=== PATIENT | female | born 1955 | race Caucasian/White ===

== ENCOUNTER → 2019-05-30 08:32 | Outpatient (CLI) | payer MEDICARE, OTHER, SELFPAY ==
[2019-05-30 09:22] LABS: Hematocrit 37.4 % (36-46); Hemoglobin 11.9 g/dL (12.0-16.0); Mean Corpuscular HGB Conc 31.7 % (30-36); Mean Corpuscular Hemoglobin 26.1 PG (26-34); Mean Corpuscular Volume 82.4 fL (80-100); Platelet Count 439 X10^3/uL (150-400); Red Blood Cell Count 4.54 X10^6/uL (4.0-5.2); Red Cell Distribution Width 15.6 % (11.6-14.8); White Blood Cell Count 4.1 X10^3/uL (4.5-11.0)
[2019-05-30 09:50] LABS: Alanine Aminotransferase 24 IU/L (9-52); Albumin Globulin Ratio 1.3 (1.0-2.8); Alkaline Phosphatase 69 U/L (38-126); Aspartate Aminotransferase 29 IU/L (14-36); BUN Creatinine Ratio 18.6 (6-22); Bilirubin Total 0.3 mg/dL (0.2-1.3); Blood Urea Nitrogen 13 mg/dL (7-17); Calcium 9.5 mg/dL (8.4-10.2); Carbon Dioxide 29 mmol/L (22-32); Chloride 106 mmol/L (98-107); Cholesterol 243 mg/dL (140-199); Estimated Glomerular Filt Rate > 60.0 mL/min (>60); Glucose 99 mg/dL (80-110); HDL Cholesterol 63 mg/dL (40-60); HEMOLYSIS < 15 (0-50); LDL Cholesterol Calculated 160 mg/dL (<100); Potassium 4.1 mmol/L (3.4-5.1); Sodium 142 mmol/L (137-145); Triglycerides 100 mg/dL (35-150)
[2019-05-30 10:29] LABS: TSH w/ Reflex to FT4 2.44 uIU/mL (0.47-4.68)
[2019-05-30 12:19] LABS: Anisocytosis 1+; Hypochromasia 1+; Neutrophils Absolute Manual 1599 /uL (3000-5900); Total Cells Counted 100
== END ==
PROVIDERS: PCP Family Medicine; Visit Provider Nurse Practitioner
DX: E78.00 Pure hypercholesterolemia, unspecified (principal); L29.9 Pruritus, unspecified; R01.1 Cardiac murmur, unspecified
CPT/HCPCS: 36415; 80053; 80061; 84443; 85025

== ENCOUNTER → 2019-07-03 09:46 | Outpatient (CLI) | payer MEDICARE, OTHER, SELFPAY ==
--- NOTE | 2019-07-03 09:49 | DI.RAD.S_ITS ---
PROCEDURE: XR CERVICAL SPINE 2V OR 3V INDICATIONS: Neck pain TECHNIQUE: 3 view(s) of the cervical spine were acquired. COMPARISON: None. FINDINGS: Bones: No fractures or dislocations to the T1 level. The lateral masses of C1 appear intact on the odontoid view. No suspicious bony lesions. Moderate degenerative disc disease is present along the cervical spine, from C3 through C5, and at C5-6 and C6-7 there is moderately severe degenerative disc disease and potential for significant spinal and foraminal stenosis. Soft tissues: No prevertebral soft tissue swelling. IMPRESSION: No trauma found, no subluxation present but there is moderate to moderately severe degenerative disc disease with likelihood of significant spinal and foraminal stenosis from C5 inferiorly. Dictated by: Arsh Mendieta M.D. on 07/03/2019 at 10:09 Approved by: Arsh Mendieta M.D. on 07/03/2019 at 10:10
== END ==
PROVIDERS: PCP Family Medicine; Visit Provider Nurse Practitioner
DX: M50.31 Other cervical disc degeneration, high cervical region (principal); M50.321 Other cervical disc degeneration at C4-C5 level; M50.322 Other cervical disc degeneration at C5-C6 level; M50.323 Other cervical disc degeneration at C6-C7 level
CPT/HCPCS: 72040

== ENCOUNTER 2019-09-25 09:00 | Outpatient (RCR) | payer MEDICARE, OTHER, SELFPAY ==
--- NOTE | 2019-08-13 09:53 | PT.OIE ---
Current Diagnoses Radiculopathy, cervical region (08/07/19) Visit Care Team Role Provider Type JUVENCIO Spears Attending Provider Advanced Third Rigger Primary Care Provider Specialty: Family Practice Address: [address] [place] [address], [facility] Email: [email or web address] Physical Therapy Initial Evaluation PT-OP-A Visit Information Start: 08/07/19 08:58 Freq: Status: Active Protocol: Document 08/07/19 09:00 [facility] (Rec: 08/09/19 14:28 [facility] [email or web address]) Out-Patient Physical Therapy Visit Information Visit Information Visit Type Initial Evaluation Visit Note 64 year old female with chronic history of neck pain and cervical radiculopathy Visit Start Time 09:00 Visit Stop Time 09:45 Total Visit Minutes 45 Visit Number 1 Evaluation Information Evaluation Date 08/07/19 PT-OP-B Current Condition Start: 08/07/19 08:58 Freq: Status: Active Protocol: Document 08/07/19 09:00 [facility] (Rec: 08/09/19 14:28 [facility] [email or web address]) Current Condition History of Current Condition Onset Date chronic hx of neck pain gotten worse recently Current Complaints neck pain rated 4/10 and right sided radiculopathy, ears ringing History of Current Condition 64 year old female with chronic hx of neck pain but recently she has noticed a increase in her symptoms. She reports she can hardly move her head to the right side, she gets numbness into the fingers on her right side and notices a weakness in her right hand. Things like opening a jar she notes she cannot due. She feels weakness into her legs as well and is currently not on a exercise program. Past medical history includes a gastric bypass which she feels really helped her, history of 2 major falls which included slipping and hitting her face on a railing giving her two black eyes. 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 with likelihood of significant spinal and foraminal stenosis from C-5 inferiorly Current Functional Impairments (Reported) Functional Limitations- ADL's c/o her hands going numb when doing dishes, ADL's that require bending increases pain and arm numbness, she finds she can't pull weeds now due to pain and her hands being weak, severe difficulty opening a tight or new jar, sleep is moderately disturbed 2-3 hour sleep loss PT-OP-C Subjective Start: 08/07/19 08:58 Freq: Status: Active Protocol: Document 08/07/19 09:00 [facility] (Rec: 08/09/19 14:28 [facility] [email or web address]) Patient Questionnaires Neck Disability Index Neck Disability Index Impairment 20 to 39% Impaired (Score 10- 19) Quick Dash- Upper Extremity Quick Dash UE Impairment 20 to 39% Impaired (Score 20- 39) OP-PT Pain Assessment Pain Assessment Grid Paper Pain Assessment Grid Completed Yes Location right upper extremity Pain Location Details right upper extremity pain and numbness Description Radiating Frequency Intermittent Variations/Patterns with gripping type activity mid thoracic spine Pain Location Details mid thoracic spine Intensity 4 Scale Used Numeric (1 - 10) posterior neck Pain Location Details posterior neck Intensity 4 Scale Used Numeric (1 - 10) PT-OP-F Manual Assessment Start: 08/07/19 08:58 Freq: Status: Active Protocol: Document 08/07/19 09:00 [facility] (Rec: 08/09/19 14:28 [facility] [email or web address]) Manual Assessments Soft Tissue Assessment Soft Tissue Mobility Assessment tightness in the scalenes B anterior,middle, posterior, tightness in the upper trapezius and levator scapula B Right sided SCM tightness suboccipital tightness and lack of full upper cervical flexion pectoralis tightness bilateral Joint Mobility Assessment Joint Mobility Assessment hypomobility of the lower C spine and upper thoracic spine PT-OP-J Posture/Palpation/Skin Start: 08/07/19 08:58 Freq: Status: Active Protocol: Document 08/07/19 09:00 [facility] (Rec: 08/09/19 14:28 [facility] [email or web address]) Posture Evaluation Position Standing Evaluation View Lateral Head/C-Spine Posture Flexed,Side Bent Right T-Spine Posture Increased Kyphosis Shoulder Posture (L) Rounded,(R) Rounded Scapula Posture (L) Protracted,(R) Protracted Palpation Assessment Location One Palpation Location right upper trapezius, levator scapula, scalenes, clavicle, SCM Palpation Findings Soft Tissue Tightness,Muscle Guarding,Tenderness PT-OP-K Range of Motion Start: 08/07/19 08:58 Freq: Status: Active Protocol: Document 08/07/19 09:00 [facility] (Rec: 08/09/19 14:28 [facility] [email or web address]) Cervical Spine Range of Motion Cervical Spine Active Testing Position Sitting Flexion 10 Extension 0 Rotation Left 10 Rotation Right 5 Lateral Flexion Left 10 Lateral Flexion Right 5 ROM Limitations Soft Tissue Tightness, Contracture,Pain Comments very painfull cervcial ROM, very limited upper cervical flexion, no ability to go into extension Shoulder Goniometric Range of Motion Shoulder Left Shoulder ROM WFL Yes Right Shoulder ROM WFL Yes PT-OP-M Strength Start: 08/07/19 08:58 Freq: Status: Active Protocol: Document 08/07/19 09:00 [facility] (Rec: 08/13/19 09:50 [facility] [email or web address]) Cervical Spine Strength Cervical Spine Manual Muscle Testing Flexion (C1-2) 3 Fair Extension 3 Fair Rotation Left 3 Fair Rotation Right 3 Fair Lateral Flexion Left (C3) 3 Fair Lateral Flexion Right (C3) 3 Fair Shoulder Strength Shoulder Manual Muscle Testing Right Flexion 3+ Fair+ Abduction (C5) 3+ Fair+ Elbow/Forearm Strength Elbow and Forearm Manual Muscle Testing Right Flexion (C6) 4 Good Extension (C7) 4 Good Wrist Strength Wrist Manual Muscle Testing Right Flexion (C7) 3 Fair Extension (C6) 4 Good PT-OP-Q Treatments Start: 08/07/19 08:58 Freq: Status: Active Protocol: Document 08/07/19 09:00 [facility] (Rec: 08/13/19 09:50 [facility] [email or web address]) Therapeutic Exercises Supine Exercises 1 Supine Exercise Name Stretches home program of sidebending ROM, seated scalenes stretch, Comments levator scapula stretch, Other Exercises [address] chest stretch Side bilateral PT-OP-T Assessment and Plan Start: 08/07/19 08:58 Freq: Status: Active Protocol: Document 08/07/19 09:00 [facility] (Rec: 08/13/19 09:50 [facility] [email or web address]) Physical Therapy Assessment Impairments Impairments Activity Tolerance,Functional Activities,Pain,Posture,ROM, Sensation,Soft Tissue Mobility ,Strength Goals Four Impairment Reduced strength of the right Upper extremity C5-6 C 6-7 Participant Administrator Goal (LTG) Improve UE strength of the right that is being caused most likely by foraminal stenosis by improving cervical spine stability, ROM, and UE strengthening. LTG Duration 8 weeks Three Impairment c/o right hand going numb with activities such as washing dishes Shelter Goal (LTG) Reduce complaints of radicular symptoms with activities that cause forward bend such as dishes LTG Duration 8 weeks Two Impairment Restricted cervical spine ROM with pain Participant Administrator Goal (LTG) Improve cervical spine ROM to WFL without increased pain LTG Duration 8 weeks One Impairment Pain rated 4/10 with right sided radicular symptoms Short Term Goal (STG) Reduce pain to mild pain and improved sleeping through the night STG Duration 4-5 weeks Shelter Goal (LTG) Gina reports a overall reduction in pain including increasing reading tolerance and decreaseing headaches LTG Duration 6-8 weeks Assessment Summary Assessment Gina presents to physical therapy today with signs and symtoms of degenerative disc disease in her cervical spine. She has very guarded ROM , pain, and muscle tightness. She experiences radicular symptoms down her right arm and has both decreased sensation as well as decreased strength for the right C5-6 and C 6-7 dermatomes. She also has poor postural habits and body mechanics that contribute to her symptoms. Treatment will focus on establishing a home routine of stretching and ROM as well as postural modifications. Gina is a good candidate for PT Physical Therapy Plan Frequency and Duration Frequency of Treatment 2x/Week Duration of Treatment 8 weeks Plan of Care Start Date 08/07/19 Plan of Care End Date 10/02/19 Therapeutic Interventions Therapeutic Interventions Home Exercise Program,Joint Mobilizations,Manual Therapy, Self-Care/Home Management,Soft Tissue Mobilization, Therapeutic Exercises Modalities Cold Pack/Ice Massage,Electric Stimulation,Ultrasound Next Visit Focus/Plan Next Note Type Treatment Note Next Visit Plan review stretches given to the patient at time of her evaluation, begin working on postural changes and manual therapy treatment to help reduce cervical muscle spasms
--- NOTE | 2019-08-13 09:53 | PT.OPPOC ---
Current Diagnoses Radiculopathy, cervical region (08/07/19) Visit Care Team Role Provider Type JUVENCIO Spears Attending Provider Advanced Business Operations Manager Primary Care Provider Specialty: Family Practice Address: [address] [place] [address], [facility] Email: [email or web address] Plan Of Care PT-OP-T Assessment and Plan Start: 08/07/19 08:58 Freq: Status: Active Protocol: Document 08/07/19 09:00 [facility] (Rec: 08/13/19 09:50 [facility] [email or web address]) Physical Therapy Assessment Impairments Impairments Activity Tolerance,Functional Activities,Pain,Posture,ROM, Sensation,Soft Tissue Mobility ,Strength Goals Four Impairment Reduced strength of the right Upper extremity C5-6 C 6-7 Group Home Goal (LTG) Improve UE strength of the right that is being caused most likely by foraminal stenosis by improving cervical spine stability, ROM, and UE strengthening. LTG Duration 8 weeks Three Impairment c/o right hand going numb with activities such as washing dishes Bankruptcy Manager Goal (LTG) Reduce complaints of radicular symptoms with activities that cause forward bend such as dishes LTG Duration 8 weeks Two Impairment Restricted cervical spine ROM with pain Group Home Goal (LTG) Improve cervical spine ROM to WFL without increased pain LTG Duration 8 weeks One Impairment Pain rated 4/10 with right sided radicular symptoms Short Term Goal (STG) Reduce pain to mild pain and improved sleeping through the night STG Duration 4-5 weeks Group Home Goal (LTG) Gina reports a overall reduction in pain including increasing reading tolerance and decreasing headaches LTG Duration 6-8 weeks Assessment Summary Assessment Gina presents to physical therapy today with signs and symptoms of degenerative disc disease in her cervical spine. She has very guarded ROM , pain, and muscle tightness. She experiences radicular symptoms down her right arm and has both decreased sensation as well as decreased strength for the right C5-6 and C 6-7 dermatomes. She also has poor postural habits and body mechanics that contribute to her symptoms. Treatment will focus on establishing a home routine of stretching and ROM as well as postural modifications. Gina is a good candidate for PT Physical Therapy Plan Frequency and Duration Frequency of Treatment 2x/Week Duration of Treatment 8 weeks Plan of Care Start Date 08/07/19 Plan of Care End Date 10/02/19 Therapeutic Interventions Therapeutic Interventions Home Exercise Program,Joint Mobilizations,Manual Therapy, Self-Care/Home Management,Soft Tissue Mobilization, Therapeutic Exercises Modalities Cold Pack/Ice Massage,Electric Stimulation,Ultrasound Next Visit Focus/Plan Next Note Type Treatment Note Next Visit Plan review stretches given to the patient at time of her evaluation, begin working on postural changes and manual therapy treatment to help reduce cervical muscle spasms Plan of Care Dates Plan of Care Start Date 08/07/19 Plan of Care End Date 10/02/19 Please Sign and Return: I have reviewed this Plan of Care and certify that the skilled therapy services above are required to meet the patient?s needs. Physician Signature Date Printed Name and Credentials Clinical Instructor Signature Printed Name and Credentials
--- NOTE | 2019-08-14 11:35 | PT.OTN ---
Current Diagnoses Radiculopathy, cervical region (08/14/19) Physical Therapy Treatment Note PT-OP-A Visit Information Start: 08/07/19 08:58 Freq: Status: Active Protocol: Document 08/14/19 11:26 [facility] (Rec: 08/14/19 11:35 [facility] [email or web address]) Out-Patient Physical Therapy Visit Information Visit Information Visit Type Treatment Note Visit Start Time 09:00 Visit Stop Time 09:55 Total Visit Minutes 55 Visit Number 2 PT-OP-B Current Condition Start: 08/07/19 08:58 Freq: Status: Active Protocol: Document 08/07/19 09:00 [facility] (Rec: 08/09/19 14:28 [facility] [email or web address]) Current Condition History of Current Condition Onset Date chronic hx of neck pain gotten worse recently Current Complaints neck pain rated 4/10 and right sided radiculopathy, ears ringing History of Current Condition 64 year old female with chronic hx of neck pain but recently she has noticed a increase in her symptoms. She reports she can hardly move her head to the right side, she gets numbness into the fingers on her right side and notices a weakness in her right hand. Things like opening a jar she notes she cannot due. She feels weakness into her legs as well and is currently not on a exercise program. Past medical history includes a gastric bypass which she feels really helped her, history of 2 major falls which included slipping and hitting her face on a railing giving her two black eyes. 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 with likelihood of significant spinal and foraminal stenosis from C-5 inferiorly Current Functional Impairments (Reported) Functional Limitations- ADL's c/o her hands going numb when doing dishes, ADL's that require bending increases pain and arm numbness, she finds she can't pull weeds now due to pain and her hands being weak, severe difficulty opening a tight or new jar, sleep is moderately disturbed 2-3 hour sleep loss PT-OP-C Subjective Start: 08/07/19 08:58 Freq: Status: Active Protocol: Document 08/14/19 11:26 [facility] (Rec: 08/14/19 11:35 [facility] [email or web address]) OP-PT Subjective Patient Comments Patient Comments pt reports she has been busy visiting her grand kids so hasn't been able to do the exercises every day but has been working on trying to do them PT-OP-F Manual Assessment Start: 08/07/19 08:58 Freq: Status: Active Protocol: Document 08/07/19 09:00 [facility] (Rec: 08/09/19 14:28 [facility] [email or web address]) Manual Assessments Soft Tissue Assessment Soft Tissue Mobility Assessment tightness in the scalenes B anterior,middle, posterior, tightness in the upper trapezius and levator scapula B Right sided SCM tightness suboccipital tightness and lack of full upper cervical flexion pectoralis tightness bilateral Joint Mobility Assessment Joint Mobility Assessment hypomobility of the lower C spine and upper thoracic spine PT-OP-J Posture/Palpation/Skin Start: 08/07/19 08:58 Freq: Status: Active Protocol: Document 08/07/19 09:00 [facility] (Rec: 08/09/19 14:28 [facility] [email or web address]) Posture Evaluation Position Standing Evaluation View Lateral Head/C-Spine Posture Flexed,Side Bent Right T-Spine Posture Increased Kyphosis Shoulder Posture (L) Rounded,(R) Rounded Scapula Posture (L) Protracted,(R) Protracted Palpation Assessment Location One Palpation Location right upper trapezius, levator scapula, scalenes, clavicle, SCM Palpation Findings Soft Tissue Tightness,Muscle Guarding,Tenderness PT-OP-K Range of Motion Start: 08/07/19 08:58 Freq: Status: Active Protocol: Document 08/07/19 09:00 [facility] (Rec: 08/09/19 14:28 [facility] [email or web address]) Cervical Spine Range of Motion Cervical Spine Active Testing Position Sitting Flexion 10 Extension 0 Rotation Left 10 Rotation Right 5 Lateral Flexion Left 10 Lateral Flexion Right 5 ROM Limitations Soft Tissue Tightness, Contracture,Pain Comments very painfull cervcial ROM, very limited upper cervical flexion, no ability to go into extension Shoulder Goniometric Range of Motion Shoulder Left Shoulder ROM WFL Yes Right Shoulder ROM WFL Yes PT-OP-M Strength Start: 08/07/19 08:58 Freq: Status: Active Protocol: Document 08/07/19 09:00 [facility] (Rec: 08/13/19 09:50 [facility] [email or web address]) Cervical Spine Strength Cervical Spine Manual Muscle Testing Flexion (C1-2) 3 Fair Extension 3 Fair Rotation Left 3 Fair Rotation Right 3 Fair Lateral Flexion Left (C3) 3 Fair Lateral Flexion Right (C3) 3 Fair Shoulder Strength Shoulder Manual Muscle Testing Right Flexion 3+ Fair+ Abduction (C5) 3+ Fair+ Elbow/Forearm Strength Elbow and Forearm Manual Muscle Testing Right Flexion (C6) 4 Good Extension (C7) 4 Good Wrist Strength Wrist Manual Muscle Testing Right Flexion (C7) 3 Fair Extension (C6) 4 Good PT-OP-Q Treatments Start: 08/07/19 08:58 Freq: Status: Active Protocol: Document 08/14/19 11:26 [facility] (Rec: 08/14/19 11:35 [facility] [email or web address]) Cardio Equipment Recumbent Elliptical (BiodGuardiCore) Duration (Minutes) 5 Resistance 2 Therapeutic Exercises Supine Exercises 2 Supine Exercise Name foam roll stretch 1 Supine Exercise Name Stretches home program of sidebending ROM, seated scalenes stretch, Comments levator scapula stretch, Sitting Exercises 1 Sitting Exercise Name seated shoulder rolls Standing Exercises 2 Standing Exercise Name standing shoulder extension Equipment Used level 1 Reps/Minutes 2 x 10 reps 1 Standing Exercise Name standing rows Resistance level 1 Reps/Minutes 2 x 10 reps Other Exercises 1 [address] Exercise Name door way chest stretch Side bilateral Manual Therapy Treatment Soft Tissue Mobilization 1 Body Location upper trapezius, levator scapula, scalenes Mobilization Type Myofascial Release Body Position Sitting Comments bilateral upper traps and c- spine, pin and stretch with active cervical sidebend Joint Mobilizations 1 Joint gentle PA mobs T1-T2 Body Position seated PT-OP-R Modalities Start: 08/07/19 08:58 Freq: Status: Active Protocol: Document 08/14/19 11:26 [facility] (Rec: 08/14/19 11:35 [facility] [email or web address]) Hot Pack/Cold Pack Treatment Hot Pack Location cervical hot pack PT-OP-T Assessment and Plan Start: 08/07/19 08:58 Freq: Status: Active Protocol: Document 08/14/19 11:26 [facility] (Rec: 08/14/19 11:35 [facility] [email or web address]) Physical Therapy Assessment Assessment Summary Assessment Good tolerance for exercise today, really liked the foam roll. Responded well to manual work in the neck, very guarded and tight R>L upper neck Physical Therapy Plan Frequency and Duration Frequency of Treatment 2x/Week Duration of Treatment 8 weeks Plan of Care Start Date 08/07/19 Plan of Care End Date 10/02/19 Next Visit Focus/Plan Next Note Type Treatment Note Next Visit Plan continue with postural modifications and manual work, cervical stretches and anterior chest stretches. Begin shouler ER strengthening
--- NOTE | 2019-08-21 14:15 | PT.OTN ---
Current Diagnoses Radiculopathy, cervical region (08/21/19) Physical Therapy Treatment Note PT-OP-A Visit Information Start: 08/07/19 08:58 Freq: Status: Active Protocol: Document 08/21/19 14:03 [facility] (Rec: 08/21/19 14:15 [facility] [email or web address]) Out-Patient Physical Therapy Visit Information Visit Information Visit Type Treatment Note Visit Start Time 09:00 Visit Stop Time 09:45 Total Visit Minutes 45 Visit Number 3 PT-OP-B Current Condition Start: 08/07/19 08:58 Freq: Status: Active Protocol: Document 08/07/19 09:00 [facility] (Rec: 08/09/19 14:28 [facility] [email or web address]) Current Condition History of Current Condition Onset Date chronic hx of neck pain gotten worse recently Current Complaints neck pain rated 4/10 and right sided radiculopathy, ears ringing History of Current Condition 64 year old female with chronic hx of neck pain but recently she has noticed a increase in her symptoms. She reports she can hardly move her head to the right side, she gets numbness into the fingers on her right side and notices a weakness in her right hand. Things like opening a jar she notes she cannot due. She feels weakness into her legs as well and is currently not on a exercise program. Past medical history includes a gastric bypass which she feels really helped her, history of 2 major falls which included slipping and hitting her face on a railing giving her two black eyes. 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 with likelihood of significant spinal and foraminal stenosis from C-5 inferiorly Current Functional Impairments (Reported) Functional Limitations- ADL's c/o her hands going numb when doing dishes, ADL's that require bending increases pain and arm numbness, she finds she can't pull weeds now due to pain and her hands being weak, severe difficulty opening a tight or new jar, sleep is moderately disturbed 2-3 hour sleep loss PT-OP-C Subjective Start: 08/07/19 08:58 Freq: Status: Active Protocol: Document 08/21/19 14:03 [facility] (Rec: 08/21/19 14:15 [facility] [email or web address]) OP-PT Subjective Patient Comments Patient Comments pt reports she got a foam roll for home and has been using it. She feels like it really helps. She is not feeling the numbness as much PT-OP-F Manual Assessment Start: 08/07/19 08:58 Freq: Status: Active Protocol: Document 08/07/19 09:00 [facility] (Rec: 08/09/19 14:28 [facility] [place] [email or web address]) Manual Assessments Soft Tissue Assessment Soft Tissue Mobility Assessment tightness in the scalenes B anterior,middle, posterior, tightness in the upper trapezius and levator scapula B Right sided SCM tightness suboccipital tightness and lack of full upper cervical flexion pectoralis tightness bilateral Joint Mobility Assessment Joint Mobility Assessment hypomobility of the lower C spine and upper thoracic spine PT-OP-J Posture/Palpation/Skin Start: 08/07/19 08:58 Freq: Status: Active Protocol: Document 08/07/19 09:00 [facility] (Rec: 08/09/19 14:28 [facility] [email or web address]) Posture Evaluation Position Standing Evaluation View Lateral Head/C-Spine Posture Flexed,Side Bent Right T-Spine Posture Increased Kyphosis Shoulder Posture (L) Rounded,(R) Rounded Scapula Posture (L) Protracted,(R) Protracted Palpation Assessment Location One Palpation Location right upper trapezius, levator scapula, scalenes, clavicle, SCM Palpation Findings Soft Tissue Tightness,Muscle Guarding,Tenderness PT-OP-K Range of Motion Start: 08/07/19 08:58 Freq: Status: Active Protocol: Document 08/07/19 09:00 [facility] (Rec: 08/09/19 14:28 [facility] [place] [email or web address]) Cervical Spine Range of Motion Cervical Spine Active Testing Position Sitting Flexion 10 Extension 0 Rotation Left 10 Rotation Right 5 Lateral Flexion Left 10 Lateral Flexion Right 5 ROM Limitations Soft Tissue Tightness, Contracture,Pain Comments very painfull cervcial ROM, very limited upper cervical flexion, no ability to go into extension Shoulder Goniometric Range of Motion Shoulder Left Shoulder ROM WFL Yes Right Shoulder ROM WFL Yes PT-OP-M Strength Start: 08/07/19 08:58 Freq: Status: Active Protocol: Document 08/07/19 09:00 [facility] (Rec: 08/13/19 09:50 [facility] [place] [email or web address]) Cervical Spine Strength Cervical Spine Manual Muscle Testing Flexion (C1-2) 3 Fair Extension 3 Fair Rotation Left 3 Fair Rotation Right 3 Fair Lateral Flexion Left (C3) 3 Fair Lateral Flexion Right (C3) 3 Fair Shoulder Strength Shoulder Manual Muscle Testing Right Flexion 3+ Fair+ Abduction (C5) 3+ Fair+ Elbow/Forearm Strength Elbow and Forearm Manual Muscle Testing Right Flexion (C6) 4 Good Extension (C7) 4 Good Wrist Strength Wrist Manual Muscle Testing Right Flexion (C7) 3 Fair Extension (C6) 4 Good PT-OP-Q Treatments Start: 08/07/19 08:58 Freq: Status: Active Protocol: Document 08/21/19 14:03 [facility] (Rec: 08/21/19 14:15 [facility] [email or web address]) Therapeutic Exercises Supine Exercises 2 Supine Exercise Name foam roll stretch Comments with horizontal abduction 1 Supine Exercise Name Stretches home program of sidebending ROM, seated scalenes stretch, Comments levator scapula stretch, Sitting Exercises 2 Sitting Exercise Name seated trigeminal nerve flossing 1 Sitting Exercise Name seated shoulder rolls Standing Exercises 3 Standing Exercise Name standing shoulder ER Reps/Minutes level 1 3x 10 reps 2 Standing Exercise Name standing shoulder extension Equipment Used level 1 Reps/Minutes 2 x 10 reps 1 Standing Exercise Name standing rows Resistance level 1 Reps/Minutes 2 x 10 reps Manual Therapy Treatment Soft Tissue Mobilization 1 Body Location upper trapezius, levator scapula, scalenes Mobilization Type Myofascial Release Body Position Sitting Comments bilateral upper traps and c- spine, pin and stretch with active cervical sidebend PT-OP-R Modalities Start: 08/07/19 08:58 Freq: Status: Active Protocol: Document 08/14/19 11:26 [facility] (Rec: 08/14/19 11:35 [facility] [place] [email or web address]) Hot Pack/Cold Pack Treatment Hot Pack Location cervical hot pack PT-OP-T Assessment and Plan Start: 08/07/19 08:58 Freq: Status: Active Protocol: Document 08/21/19 14:03 [facility] (Rec: 08/21/19 14:15 [facility] [place] [email or web address]) Physical Therapy Assessment Assessment Summary Assessment added in rotator cuff strengthening in standing today with good tolerance, tried trigeminal nerve flossing for the left side jaw pain and tennitus. Good improvements with postural corrections causing a reduction in numbness right arm Physical Therapy Plan Frequency and Duration Frequency of Treatment 2x/Week Duration of Treatment 8 weeks Plan of Care Start Date 08/07/19 Plan of Care End Date 10/02/19 Therapeutic Interventions Therapeutic Interventions Home Exercise Program,Joint Mobilizations,Manual Therapy, Self-Care/Home Management,Soft Tissue Mobilization, Therapeutic Exercises Modalities Cold Pack/Ice Massage,Electric Stimulation,Ultrasound Next Visit Focus/Plan Next Note Type Treatment Note Next Visit Plan continue with postural modifications and manual work, cervical stretches and anterior chest stretches.
--- NOTE | 2019-08-23 13:18 | PT.OTN ---
Current Diagnoses Radiculopathy, cervical region (08/23/19) Physical Therapy Treatment Note PT-OP-A Visit Information Start: 08/07/19 08:58 Freq: Status: Active Protocol: Document 08/23/19 13:13 [facility] (Rec: 08/23/19 13:18 [facility] [email or web address]) Out-Patient Physical Therapy Visit Information Visit Information Visit Type Treatment Note Visit Start Time 09:00 Visit Stop Time 09:55 Total Visit Minutes 55 Visit Number 4 PT-OP-B Current Condition Start: 08/07/19 08:58 Freq: Status: Active Protocol: Document 08/07/19 09:00 [facility] (Rec: 08/09/19 14:28 [facility] [email or web address]) Current Condition History of Current Condition Onset Date chronic hx of neck pain gotten worse recently Current Complaints neck pain rated 4/10 and right sided radiculopathy, ears ringing History of Current Condition 64 year old female with chronic hx of neck pain but recently she has noticed a increase in her symptoms. She reports she can hardly move her head to the right side, she gets numbness into the fingers on her right side and notices a weakness in her right hand. Things like opening a jar she notes she cannot due. She feels weakness into her legs as well and is currently not on a exercise program. Past medical history includes a gastric bypass which she feels really helped her, history of 2 major falls which included slipping and hitting her face on a railing giving her two black eyes. 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 with likelihood of significant spinal and foraminal stenosis from C-5 inferiorly Current Functional Impairments (Reported) Functional Limitations- ADL's c/o her hands going numb when doing dishes, ADL's that require bending increases pain and arm numbness, she finds she can't pull weeds now due to pain and her hands being weak, severe difficulty opening a tight or new jar, sleep is moderately disturbed 2-3 hour sleep loss PT-OP-C Subjective Start: 08/07/19 08:58 Freq: Status: Active Protocol: Document 08/23/19 13:13 [facility] (Rec: 08/23/19 13:18 [facility] [email or web address]) OP-PT Subjective Patient Comments Patient Comments pt feels like her ROM is improving. She wants to return to swimming activities PT-OP-F Manual Assessment Start: 08/07/19 08:58 Freq: Status: Active Protocol: Document 08/07/19 09:00 [facility] (Rec: 08/09/19 14:28 [facility] [email or web address]) Manual Assessments Soft Tissue Assessment Soft Tissue Mobility Assessment tightness in the scalenes B anterior,middle, posterior, tightness in the upper trapezius and levator scapula B Right sided SCM tightness suboccipital tightness and lack of full upper cervical flexion pectoralis tightness bilateral Joint Mobility Assessment Joint Mobility Assessment hypomobility of the lower C spine and upper thoracic spine PT-OP-J Posture/Palpation/Skin Start: 08/07/19 08:58 Freq: Status: Active Protocol: Document 08/07/19 09:00 [facility] (Rec: 08/09/19 14:28 [facility] [email or web address]) Posture Evaluation Position Standing Evaluation View Lateral Head/C-Spine Posture Flexed,Side Bent Right T-Spine Posture Increased Kyphosis Shoulder Posture (L) Rounded,(R) Rounded Scapula Posture (L) Protracted,(R) Protracted Palpation Assessment Location One Palpation Location right upper trapezius, levator scapula, scalenes, clavicle, SCM Palpation Findings Soft Tissue Tightness,Muscle Guarding,Tenderness PT-OP-K Range of Motion Start: 08/07/19 08:58 Freq: Status: Active Protocol: Document 08/07/19 09:00 [facility] (Rec: 08/09/19 14:28 [facility] [email or web address]) Cervical Spine Range of Motion Cervical Spine Active Testing Position Sitting Flexion 10 Extension 0 Rotation Left 10 Rotation Right 5 Lateral Flexion Left 10 Lateral Flexion Right 5 ROM Limitations Soft Tissue Tightness, Contracture,Pain Comments very painfull cervcial ROM, very limited upper cervical flexion, no ability to go into extension Shoulder Goniometric Range of Motion Shoulder Left Shoulder ROM WFL Yes Right Shoulder ROM WFL Yes PT-OP-M Strength Start: 08/07/19 08:58 Freq: Status: Active Protocol: Document 08/07/19 09:00 [facility] (Rec: 08/13/19 09:50 [facility] [email or web address]) Cervical Spine Strength Cervical Spine Manual Muscle Testing Flexion (C1-2) 3 Fair Extension 3 Fair Rotation Left 3 Fair Rotation Right 3 Fair Lateral Flexion Left (C3) 3 Fair Lateral Flexion Right (C3) 3 Fair Shoulder Strength Shoulder Manual Muscle Testing Right Flexion 3+ Fair+ Abduction (C5) 3+ Fair+ Elbow/Forearm Strength Elbow and Forearm Manual Muscle Testing Right Flexion (C6) 4 Good Extension (C7) 4 Good Wrist Strength Wrist Manual Muscle Testing Right Flexion (C7) 3 Fair Extension (C6) 4 Good PT-OP-Q Treatments Start: 08/07/19 08:58 Freq: Status: Active Protocol: Document 08/23/19 13:13 [facility] (Rec: 08/23/19 13:18 [facility] [email or web address]) Therapeutic Exercises Standing Exercises 5 Standing Exercise Name mountain pose Comments with inhale raise arms, exhale let them fall 4 Standing Exercise Name standing wall slides Reps/Minutes x 15 3 Standing Exercise Name standing shoulder ER Reps/Minutes level 1 3x 10 reps Manual Therapy Treatment Soft Tissue Mobilization 1 Body Location upper trapezius, levator scapula, scalenes Mobilization Type Myofascial Release Body Position Supine Comments bilateral upper traps and c- spine, pin and stretch with active cervical sidebend Manual Techniques 2 Type medial and ulnar nerve glides 1 Type manual scalene and pec minor stretch PT-OP-R Modalities Start: 08/07/19 08:58 Freq: Status: Active Protocol: Document 08/14/19 11:26 [facility] (Rec: 08/14/19 11:35 [facility] [email or web address]) Hot Pack/Cold Pack Treatment Hot Pack Location cervical hot pack PT-OP-T Assessment and Plan Start: 08/07/19 08:58 Freq: Status: Active Protocol: Document 08/23/19 13:13 [facility] (Rec: 08/23/19 13:18 [facility] [email or web address]) Physical Therapy Assessment Assessment Summary Assessment improving cervical ROM and anterior chest tightness and compression, tolerated nerve glides well Physical Therapy Plan Frequency and Duration Frequency of Treatment 2x/Week Duration of Treatment 8 weeks Plan of Care Start Date 08/07/19 Plan of Care End Date 10/02/19 Therapeutic Interventions Therapeutic Interventions Home Exercise Program,Joint Mobilizations,Manual Therapy, Self-Care/Home Management,Soft Tissue Mobilization, Therapeutic Exercises Modalities Cold Pack/Ice Massage,Electric Stimulation,Ultrasound Next Visit Focus/Plan Next Note Type Treatment Note Next Visit Plan continue with postural modifications and manual work, cervical stretches and anterior chest stretches.
--- NOTE | 2019-09-04 11:09 | PT.OTN ---
Current Diagnoses Radiculopathy, cervical region (09/04/19) Physical Therapy Treatment Note PT-OP-A Visit Information Start: 08/07/19 08:58 Freq: Status: Active Protocol: Document 09/04/19 09:08 [facility] (Rec: 09/04/19 11:08 [facility] [email or web address]) Out-Patient Physical Therapy Visit Information Visit Information Visit Type Treatment Note Visit Start Time 09:05 Visit Stop Time 10:00 Total Visit Minutes 55 Visit Number 4 Number of [employer] Visits 1 PT-OP-B Current Condition Start: 08/07/19 08:58 Freq: Status: Active Protocol: Document 08/07/19 09:00 [facility] (Rec: 08/09/19 14:28 [facility] [email or web address]) Current Condition History of Current Condition Onset Date chronic hx of neck pain gotten worse recently Current Complaints neck pain rated 4/10 and right sided radiculopathy, ears ringing History of Current Condition 64 year old female with chronic hx of neck pain but recently she has noticed a increase in her symptoms. She reports she can hardly move her head to the right side, she gets numbness into the fingers on her right side and notices a weakness in her right hand. Things like opening a jar she notes she cannot due. She feels weakness into her legs as well and is currently not on a exercise program. Past medical history includes a gastric bypass which she feels really helped her, history of 2 major falls which included slipping and hitting her face on a railing giving her two black eyes. 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 with likelihood of significant spinal and foraminal stenosis from C-5 inferiorly Current Functional Impairments (Reported) Functional Limitations- ADL's c/o her hands going numb when doing dishes, ADL's that require bending increases pain and arm numbness, she finds she can't pull weeds now due to pain and her hands being weak, severe difficulty opening a tight or new jar, sleep is moderately disturbed 2-3 hour sleep loss PT-OP-C Subjective Start: 08/07/19 08:58 Freq: Status: Active Protocol: Document 09/04/19 10:15 [facility] (Rec: 09/04/19 11:05 [facility] [email or web address]) OP-PT Subjective Patient Comments Patient Comments Pt reports 6/10 pain when wakes up in the morning but after gets moving in the morning decreases to 3/10 posterior neck pain with continued headaches and numbness into dorsal hand and fingers R>L. Pt stated compliant with HEP instructed thus far and hand outs are helpful for recall. Patient Reported Progress Improving PT-OP-F Manual Assessment Start: 08/07/19 08:58 Freq: Status: Active Protocol: Document 08/07/19 09:00 [facility] (Rec: 08/09/19 14:28 [facility] [email or web address]) Manual Assessments Soft Tissue Assessment Soft Tissue Mobility Assessment tightness in the scalenes B anterior,middle, posterior, tightness in the upper trapezius and levator scapula B Right sided SCM tightness suboccipital tightness and lack of full upper cervical flexion pectoralis tightness bilateral Joint Mobility Assessment Joint Mobility Assessment hypomobility of the lower C spine and upper thoracic spine PT-OP-J Posture/Palpation/Skin Start: 08/07/19 08:58 Freq: Status: Active Protocol: Document 08/07/19 09:00 [facility] (Rec: 08/09/19 14:28 [facility] [email or web address]) Posture Evaluation Position Standing Evaluation View Lateral Head/C-Spine Posture Flexed,Side Bent Right T-Spine Posture Increased Kyphosis Shoulder Posture (L) Rounded,(R) Rounded Scapula Posture (L) Protracted,(R) Protracted Palpation Assessment Location One Palpation Location right upper trapezius, levator scapula, scalenes, clavicle, SCM Palpation Findings Soft Tissue Tightness,Muscle Guarding,Tenderness PT-OP-K Range of Motion Start: 08/07/19 08:58 Freq: Status: Active Protocol: Document 08/07/19 09:00 [facility] (Rec: 08/09/19 14:28 [facility] [email or web address]) Cervical Spine Range of Motion Cervical Spine Active Testing Position Sitting Flexion 10 Extension 0 Rotation Left 10 Rotation Right 5 Lateral Flexion Left 10 Lateral Flexion Right 5 ROM Limitations Soft Tissue Tightness, Contracture,Pain Comments very painfull cervcial ROM, very limited upper cervical flexion, no ability to go into extension Shoulder Goniometric Range of Motion Shoulder Left Shoulder ROM WFL Yes Right Shoulder ROM WFL Yes PT-OP-M Strength Start: 08/07/19 08:58 Freq: Status: Active Protocol: Document 08/07/19 09:00 [facility] (Rec: 08/13/19 09:50 [facility] [email or web address]) Cervical Spine Strength Cervical Spine Manual Muscle Testing Flexion (C1-2) 3 Fair Extension 3 Fair Rotation Left 3 Fair Rotation Right 3 Fair Lateral Flexion Left (C3) 3 Fair Lateral Flexion Right (C3) 3 Fair Shoulder Strength Shoulder Manual Muscle Testing Right Flexion 3+ Fair+ Abduction (C5) 3+ Fair+ Elbow/Forearm Strength Elbow and Forearm Manual Muscle Testing Right Flexion (C6) 4 Good Extension (C7) 4 Good Wrist Strength Wrist Manual Muscle Testing Right Flexion (C7) 3 Fair Extension (C6) 4 Good PT-OP-Q Treatments Start: 08/07/19 08:58 Freq: Status: Active Protocol: Document 09/04/19 10:15 [facility] (Rec: 09/04/19 11:05 [facility] [email or web address]) Therapeutic Exercises Supine Exercises 2 Supine Exercise Name table Resistance light blue TB Reps/Minutes 3x10 Comments with horizontal abduction 1 Supine Exercise Name Stretches home program of sidebending ROM, seated scalenes stretch, Reps/Minutes x10 R and L Comments levator scapula stretch, Sitting Exercises 2 Sitting Exercise Name Median nerve flossing Reps/Minutes 5-10 hold x10 Comments cued decreased TS extension ( HO provided) 1 Sitting Exercise Name Upper trap stretch seated in chair Reps/Minutes 10 hold x10 Comments relaxed neutral shlds, elevated posture, clasp under chair Standing Exercises 4 Reps/Minutes x15 3 Standing Exercise Name standing shoulder ER Reps/Minutes level 1 3x 10 reps Comments head/shlds/pelvis back to wall , neutral CS 2 Standing Exercise Name DNF at wall Equipment Used level 1 Reps/Minutes 3 sec hold x10 Comments facing wall, shld relaxed Manual Therapy Treatment Soft Tissue Mobilization 1 Body Location upper trapezius, levator scapula, scalenes Mobilization Type Myofascial Release Body Position Supine Comments B upper traps, lev scap, suboccipitals, suboccipital release. Instruction self using theracane with active shld or head turns/nods. PT-OP-R Modalities Start: 08/07/19 08:58 Freq: Status: Active Protocol: Document 08/14/19 11:26 [facility] (Rec: 08/14/19 11:35 [facility] [email or web address]) Hot Pack/Cold Pack Treatment Hot Pack Location cervical hot pack PT-OP-T Assessment and Plan Start: 08/07/19 08:58 Freq: Status: Active Protocol: Document 09/04/19 10:15 [facility] (Rec: 09/04/19 11:05 [facility] [email or web address]) Physical Therapy Assessment Assessment Summary Assessment Improving CS ROM and anterior chest and posterior neck tightness, headache went away and pain reduced to 0-1/10 over posterior neck, tolerated added resisted DNF ex and median nerve glides. Provided HO and emailed new exercises today. Access Code: [email or web address] URL: [email or web address] Physical Therapy Plan Frequency and Duration Frequency of Treatment 2x/Week Duration of Treatment 8 weeks Plan of Care Start Date 08/07/19 Plan of Care End Date 10/02/19 Next Visit Focus/Plan Next Note Type Treatment Note Next Visit Plan continue with postural modifications and manual work, cervical stretches and anterior chest stretches.
--- NOTE | 2019-09-12 11:59 | PT.OTN ---
Current Diagnoses Radiculopathy, cervical region (09/12/19) Physical Therapy Treatment Note PT-OP-A Visit Information Start: 08/07/19 08:58 Freq: Status: Active Protocol: Document 09/12/19 10:01 [facility] (Rec: 09/12/19 10:49 [facility] [id number]) Out-Patient Physical Therapy Visit Information Visit Information Visit Type Treatment Note Visit Start Time 10:00 Visit Stop Time 10:45 Total Visit Minutes 45 Visit Number 5 PT-OP-B Current Condition Start: 08/07/19 08:58 Freq: Status: Active Protocol: Document 08/07/19 09:00 [facility] (Rec: 08/09/19 14:28 [facility] [email or web address]) Current Condition History of Current Condition Onset Date chronic hx of neck pain gotten worse recently Current Complaints neck pain rated 4/10 and right sided radiculopathy, ears ringing History of Current Condition 64 year old female with chronic hx of neck pain but recently she has noticed a increase in her symptoms. She reports she can hardly move her head to the right side, she gets numbness into the fingers on her right side and notices a weakness in her right hand. Things like opening a jar she notes she cannot due. She feels weakness into her legs as well and is currently not on a exercise program. Past medical history includes a gastric bypass which she feels really helped her, history of 2 major falls which included slipping and hitting her face on a railing giving her two black eyes. 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 with likelihood of significant spinal and foraminal stenosis from C-5 inferiorly Current Functional Impairments (Reported) Functional Limitations- ADL's c/o her hands going numb when doing dishes, ADL's that require bending increases pain and arm numbness, she finds she can't pull weeds now due to pain and her hands being weak, severe difficulty opening a tight or new jar, sleep is moderately disturbed 2-3 hour sleep loss PT-OP-C Subjective Start: 08/07/19 08:58 Freq: Status: Active Protocol: Document 09/12/19 10:01 [facility] (Rec: 09/12/19 10:49 [facility] [id number]) OP-PT Subjective Patient Comments Patient Comments has been traveling to [place] and has been on a boat so it has been difficult to do her exercises. She has been paying closer attention to her posture and feels that her symptoms are more central now in her neck versus wide spread pain. Patient Reported Progress Improving PT-OP-F Manual Assessment Start: 08/07/19 08:58 Freq: Status: Active Protocol: Document 08/07/19 09:00 [facility] (Rec: 08/09/19 14:28 [facility] [email or web address]) Manual Assessments Soft Tissue Assessment Soft Tissue Mobility Assessment tightness in the scalenes B anterior,middle, posterior, tightness in the upper trapezius and levator scapula B Right sided SCM tightness suboccipital tightness and lack of full upper cervical flexion pectoralis tightness bilateral Joint Mobility Assessment Joint Mobility Assessment hypomobility of the lower C spine and upper thoracic spine PT-OP-J Posture/Palpation/Skin Start: 08/07/19 08:58 Freq: Status: Active Protocol: Document 08/07/19 09:00 [facility] (Rec: 08/09/19 14:28 [facility] [email or web address]) Posture Evaluation Position Standing Evaluation View Lateral Head/C-Spine Posture Flexed,Side Bent Right T-Spine Posture Increased Kyphosis Shoulder Posture (L) Rounded,(R) Rounded Scapula Posture (L) Protracted,(R) Protracted Palpation Assessment Location One Palpation Location right upper trapezius, levator scapula, scalenes, clavicle, SCM Palpation Findings Soft Tissue Tightness,Muscle Guarding,Tenderness PT-OP-K Range of Motion Start: 08/07/19 08:58 Freq: Status: Active Protocol: Document 08/07/19 09:00 [facility] (Rec: 08/09/19 14:28 [facility] [email or web address]) Cervical Spine Range of Motion Cervical Spine Active Testing Position Sitting Flexion 10 Extension 0 Rotation Left 10 Rotation Right 5 Lateral Flexion Left 10 Lateral Flexion Right 5 ROM Limitations Soft Tissue Tightness, Contracture,Pain Comments very painfull cervcial ROM, very limited upper cervical flexion, no ability to go into extension Shoulder Goniometric Range of Motion Shoulder Left Shoulder ROM WFL Yes Right Shoulder ROM WFL Yes PT-OP-M Strength Start: 08/07/19 08:58 Freq: Status: Active Protocol: Document 08/07/19 09:00 [facility] (Rec: 08/13/19 09:50 [facility] [email or web address]) Cervical Spine Strength Cervical Spine Manual Muscle Testing Flexion (C1-2) 3 Fair Extension 3 Fair Rotation Left 3 Fair Rotation Right 3 Fair Lateral Flexion Left (C3) 3 Fair Lateral Flexion Right (C3) 3 Fair Shoulder Strength Shoulder Manual Muscle Testing Right Flexion 3+ Fair+ Abduction (C5) 3+ Fair+ Elbow/Forearm Strength Elbow and Forearm Manual Muscle Testing Right Flexion (C6) 4 Good Extension (C7) 4 Good Wrist Strength Wrist Manual Muscle Testing Right Flexion (C7) 3 Fair Extension (C6) 4 Good PT-OP-Q Treatments Start: 08/07/19 08:58 Freq: Status: Active Protocol: Document 09/12/19 10:01 [facility] (Rec: 09/12/19 10:49 [facility] [id number]) Cardio Equipment Recumbent Elliptical (GuestDriven) Duration (Minutes) 5 Therapeutic Exercises Supine Exercises 2 Supine Exercise Name table Resistance light blue TB Reps/Minutes 3x10 Comments with horizontal abduction 1 Supine Exercise Name Stretches home program of sidebending ROM, seated scalenes stretch, Reps/Minutes x10 R and L Comments levator scapula stretch, Sitting Exercises 2 Sitting Exercise Name Median nerve flossing Reps/Minutes 5-10 hold x10 Comments cued decreased TS extension ( HO provided) 1 Sitting Exercise Name Upper trap stretch seated in chair Reps/Minutes 10 hold x10 Comments relaxed neutral shlds, elevated posture, clasp under chair Standing Exercises 5 Standing Exercise Name mountain pose Comments with inhale raise arms, exhale let them fall 3 Standing Exercise Name standing shoulder ER Reps/Minutes level 1 3x 10 reps Comments head/shlds/pelvis back to wall , neutral CS 1 Standing Exercise Name standing rows Resistance level 1 Reps/Minutes 2 x 10 reps Other Exercises 1 Other Exercise Name door way chest stretch Side bilateral Manual Therapy Treatment Soft Tissue Mobilization 2 Body Location SCM mobilization with movement 1 Body Location upper trapezius, levator scapula, scalenes Mobilization Type Myofascial Release Body Position Supine Comments B upper traps, lev scap, suboccipitals, suboccipital release. Instruction self using theracane with active shld or head turns/nods. Manual Techniques 1 Type manual cervical traction PT-OP-R Modalities Start: 08/07/19 08:58 Freq: Status: Active Protocol: Document 08/14/19 11:26 [facility] (Rec: 08/14/19 11:35 [facility] [email or web address]) Hot Pack/Cold Pack Treatment Hot Pack Location cervical hot pack PT-OP-T Assessment and Plan Start: 08/07/19 08:58 Freq: Status: Active Protocol: Document 09/12/19 11:57 [facility] (Rec: 09/12/19 11:59 [facility] [email or web address]) Physical Therapy Assessment Assessment Summary Assessment Gina is doing better with posture overall. She is much more aware of her posture and how it affects her neck. I did work on her SCM's bilaterally today and these are still very tight and create a forward pull on her neck. She asked today about mechanical traction. I did manual traction with her and she responded well so this would be good to try next visit Physical Therapy Plan Frequency and Duration Frequency of Treatment 2x/Week Duration of Treatment 8 weeks Plan of Care Start Date 08/07/19 Plan of Care End Date 10/02/19 Therapeutic Interventions Therapeutic Interventions Home Exercise Program,Joint Mobilizations,Manual Therapy, Self-Care/Home Management,Soft Tissue Mobilization, Therapeutic Exercises Modalities Cold Pack/Ice Massage,Electric Stimulation,Ultrasound Next Visit Focus/Plan Next Note Type Treatment Note Next Visit Plan trial of mechanical cervical traction next visit
--- NOTE | 2019-09-12 12:01 | PT.OTN ---
Current Diagnoses Radiculopathy, cervical region (09/12/19) Physical Therapy Treatment Note PT-OP-A Visit Information Start: 08/07/19 08:58 Freq: Status: Active Protocol: Document 09/12/19 10:01 [facility] (Rec: 09/12/19 10:49 [facility] [id number]) Out-Patient Physical Therapy Visit Information Visit Information Visit Type Treatment Note Visit Start Time 10:00 Visit Stop Time 10:45 Total Visit Minutes 45 Visit Number 5 PT-OP-B Current Condition Start: 08/07/19 08:58 Freq: Status: Active Protocol: Document 08/07/19 09:00 [facility] (Rec: 08/09/19 14:28 [facility] [email or web address]) Current Condition History of Current Condition Onset Date chronic hx of neck pain gotten worse recently Current Complaints neck pain rated 4/10 and right sided radiculopathy, ears ringing History of Current Condition 64 year old female with chronic hx of neck pain but recently she has noticed a increase in her symptoms. She reports she can hardly move her head to the right side, she gets numbness into the fingers on her right side and notices a weakness in her right hand. Things like opening a jar she notes she cannot due. She feels weakness into her legs as well and is currently not on a exercise program. Past medical history includes a gastric bypass which she feels really helped her, history of 2 major falls which included slipping and hitting her face on a railing giving her two black eyes. 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 with likelihood of significant spinal and foraminal stenosis from C-5 inferiorly Current Functional Impairments (Reported) Functional Limitations- ADL's c/o her hands going numb when doing dishes, ADL's that require bending increases pain and arm numbness, she finds she can't pull weeds now due to pain and her hands being weak, severe difficulty opening a tight or new jar, sleep is moderately disturbed 2-3 hour sleep loss PT-OP-C Subjective Start: 08/07/19 08:58 Freq: Status: Active Protocol: Document 09/12/19 10:01 [facility] (Rec: 09/12/19 10:49 [facility] [id number]) OP-PT Subjective Patient Comments Patient Comments has been traveling to [place] and has been on a boat so it has been difficult to do her exercises. She has been paying closer attention to her posture and feels that her symptoms are more central now in her neck versus wide spread pain. Patient Reported Progress Improving PT-OP-F Manual Assessment Start: 08/07/19 08:58 Freq: Status: Active Protocol: Document 08/07/19 09:00 [facility] (Rec: 08/09/19 14:28 [facility] [email or web address]) Manual Assessments Soft Tissue Assessment Soft Tissue Mobility Assessment tightness in the scalenes B anterior,middle, posterior, tightness in the upper trapezius and levator scapula B Right sided SCM tightness suboccipital tightness and lack of full upper cervical flexion pectoralis tightness bilateral Joint Mobility Assessment Joint Mobility Assessment hypomobility of the lower C spine and upper thoracic spine PT-OP-J Posture/Palpation/Skin Start: 08/07/19 08:58 Freq: Status: Active Protocol: Document 08/07/19 09:00 [facility] (Rec: 08/09/19 14:28 [facility] [email or web address]) Posture Evaluation Position Standing Evaluation View Lateral Head/C-Spine Posture Flexed,Side Bent Right T-Spine Posture Increased Kyphosis Shoulder Posture (L) Rounded,(R) Rounded Scapula Posture (L) Protracted,(R) Protracted Palpation Assessment Location One Palpation Location right upper trapezius, levator scapula, scalenes, clavicle, SCM Palpation Findings Soft Tissue Tightness,Muscle Guarding,Tenderness PT-OP-K Range of Motion Start: 08/07/19 08:58 Freq: Status: Active Protocol: Document 08/07/19 09:00 [facility] (Rec: 08/09/19 14:28 [facility] [email or web address]) Cervical Spine Range of Motion Cervical Spine Active Testing Position Sitting Flexion 10 Extension 0 Rotation Left 10 Rotation Right 5 Lateral Flexion Left 10 Lateral Flexion Right 5 ROM Limitations Soft Tissue Tightness, Contracture,Pain Comments very painfull cervcial ROM, very limited upper cervical flexion, no ability to go into extension Shoulder Goniometric Range of Motion Shoulder Left Shoulder ROM WFL Yes Right Shoulder ROM WFL Yes PT-OP-M Strength Start: 08/07/19 08:58 Freq: Status: Active Protocol: Document 08/07/19 09:00 [facility] (Rec: 08/13/19 09:50 [facility] [email or web address]) Cervical Spine Strength Cervical Spine Manual Muscle Testing Flexion (C1-2) 3 Fair Extension 3 Fair Rotation Left 3 Fair Rotation Right 3 Fair Lateral Flexion Left (C3) 3 Fair Lateral Flexion Right (C3) 3 Fair Shoulder Strength Shoulder Manual Muscle Testing Right Flexion 3+ Fair+ Abduction (C5) 3+ Fair+ Elbow/Forearm Strength Elbow and Forearm Manual Muscle Testing Right Flexion (C6) 4 Good Extension (C7) 4 Good Wrist Strength Wrist Manual Muscle Testing Right Flexion (C7) 3 Fair Extension (C6) 4 Good PT-OP-Q Treatments Start: 08/07/19 08:58 Freq: Status: Active Protocol: Document 09/12/19 10:01 [facility] (Rec: 09/12/19 10:49 [facility] [id number]) Cardio Equipment Recumbent Elliptical (Audiodraft) Duration (Minutes) 5 Therapeutic Exercises Supine Exercises 2 Supine Exercise Name table Resistance light blue TB Reps/Minutes 3x10 Comments with horizontal abduction 1 Supine Exercise Name Stretches home program of sidebending ROM, seated scalenes stretch, Reps/Minutes x10 R and L Comments levator scapula stretch, Sitting Exercises 2 Sitting Exercise Name Median nerve flossing Reps/Minutes 5-10 hold x10 Comments cued decreased TS extension ( HO provided) 1 Sitting Exercise Name Upper trap stretch seated in chair Reps/Minutes 10 hold x10 Comments relaxed neutral shlds, elevated posture, clasp under chair Standing Exercises 5 Standing Exercise Name mountain pose Comments with inhale raise arms, exhale let them fall 3 Standing Exercise Name standing shoulder ER Reps/Minutes level 1 3x 10 reps Comments head/shlds/pelvis back to wall , neutral CS 1 Standing Exercise Name standing rows Resistance level 1 Reps/Minutes 2 x 10 reps Other Exercises 1 Other Exercise Name door way chest stretch Side bilateral Manual Therapy Treatment Soft Tissue Mobilization 2 Body Location SCM mobilization with movement 1 Body Location upper trapezius, levator scapula, scalenes Mobilization Type Myofascial Release Body Position Supine Comments B upper traps, lev scap, suboccipitals, suboccipital release. Instruction self using theracane with active shld or head turns/nods. Manual Techniques 1 Type manual cervical traction PT-OP-R Modalities Start: 08/07/19 08:58 Freq: Status: Active Protocol: Document 08/14/19 11:26 [facility] (Rec: 08/14/19 11:35 [facility] [email or web address]) Hot Pack/Cold Pack Treatment Hot Pack Location cervical hot pack PT-OP-T Assessment and Plan Start: 08/07/19 08:58 Freq: Status: Active Protocol: Document 09/12/19 11:57 [facility] (Rec: 09/12/19 11:59 [facility] [email or web address]) Physical Therapy Assessment Assessment Summary Assessment Gina is doing better with posture overall. She is much more aware of her posture and how it affects her neck. I did work on her SCM's bilaterally today and these are still very tight and create a forward pull on her neck. She asked today about mechanical traction. I did manual traction with her and she responded well so this would be good to try next visit Physical Therapy Plan Frequency and Duration Frequency of Treatment 2x/Week Duration of Treatment 8 weeks Plan of Care Start Date 08/07/19 Plan of Care End Date 10/02/19 Therapeutic Interventions Therapeutic Interventions Home Exercise Program,Joint Mobilizations,Manual Therapy, Self-Care/Home Management,Soft Tissue Mobilization, Therapeutic Exercises Modalities Cold Pack/Ice Massage,Electric Stimulation,Ultrasound Next Visit Focus/Plan Next Note Type Treatment Note Next Visit Plan trial of mechanical cervical traction next visit
--- NOTE | 2019-09-14 10:35 | PT.OTN ---
Current Diagnoses Radiculopathy, cervical region (09/14/19) Physical Therapy Treatment Note PT-OP-A Visit Information Start: 08/07/19 08:58 Freq: Status: Active Protocol: Document 09/14/19 10:35 [facility] (Rec: 09/14/19 14:41 [facility] [email or web address]) Out-Patient Physical Therapy Visit Information Visit Information Visit Type Treatment Note Visit Start Time 09:50 Visit Stop Time 10:35 Total Visit Minutes 45 Visit Number 6 Number of HYDROELECTRIC STATION OPERATOR Visits 2 PT-OP-B Current Condition Start: 08/07/19 08:58 Freq: Status: Active Protocol: Document 08/07/19 09:00 [facility] (Rec: 08/09/19 14:28 [facility] [email or web address]) Current Condition History of Current Condition Onset Date chronic hx of neck pain gotten worse recently Current Complaints neck pain rated 4/10 and right sided radiculopathy, ears ringing History of Current Condition 64 year old female with chronic hx of neck pain but recently she has noticed a increase in her symptoms. She reports she can hardly move her head to the right side, she gets numbness into the fingers on her right side and notices a weakness in her right hand. Things like opening a jar she notes she cannot due. She feels weakness into her legs as well and is currently not on a exercise program. Past medical history includes a gastric bypass which she feels really helped her, history of 2 major falls which included slipping and hitting her face on a railing giving her two black eyes. 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 with likelihood of significant spinal and foraminal stenosis from C-5 inferiorly Current Functional Impairments (Reported) Functional Limitations- ADL's c/o her hands going numb when doing dishes, ADL's that require bending increases pain and arm numbness, she finds she can't pull weeds now due to pain and her hands being weak, severe difficulty opening a tight or new jar, sleep is moderately disturbed 2-3 hour sleep loss PT-OP-C Subjective Start: 08/07/19 08:58 Freq: Status: Active Protocol: Document 09/14/19 10:35 [facility] (Rec: 09/14/19 14:40 [facility] [email or web address]) OP-PT Subjective Patient Comments Patient Comments HYDROELECTRIC STATION OPERATOR brought patient back 10 min late but provided full tx. Pt reported her neck is 5-6/ 10 pain and radiating into R UE tingling/numbness into fingers. I alway feel energized after therapy. Patient Reported Progress Same PT-OP-F Manual Assessment Start: 08/07/19 08:58 Freq: Status: Active Protocol: Document 08/07/19 09:00 [facility] (Rec: 08/09/19 14:28 [facility] [email or web address]) Manual Assessments Soft Tissue Assessment Soft Tissue Mobility Assessment tightness in the scalenes B anterior,middle, posterior, tightness in the upper trapezius and levator scapula B Right sided SCM tightness suboccipital tightness and lack of full upper cervical flexion pectoralis tightness bilateral Joint Mobility Assessment Joint Mobility Assessment hypomobility of the lower C spine and upper thoracic spine PT-OP-J Posture/Palpation/Skin Start: 08/07/19 08:58 Freq: Status: Active Protocol: Document 08/07/19 09:00 [facility] (Rec: 08/09/19 14:28 [facility] [email or web address]) Posture Evaluation Position Standing Evaluation View Lateral Head/C-Spine Posture Flexed,Side Bent Right T-Spine Posture Increased Kyphosis Shoulder Posture (L) Rounded,(R) Rounded Scapula Posture (L) Protracted,(R) Protracted Palpation Assessment Location One Palpation Location right upper trapezius, levator scapula, scalenes, clavicle, SCM Palpation Findings Soft Tissue Tightness,Muscle Guarding,Tenderness PT-OP-K Range of Motion Start: 08/07/19 08:58 Freq: Status: Active Protocol: Document 08/07/19 09:00 [facility] (Rec: 08/09/19 14:28 [facility] [email or web address]) Cervical Spine Range of Motion Cervical Spine Active Testing Position Sitting Flexion 10 Extension 0 Rotation Left 10 Rotation Right 5 Lateral Flexion Left 10 Lateral Flexion Right 5 ROM Limitations Soft Tissue Tightness, Contracture,Pain Comments very painfull cervcial ROM, very limited upper cervical flexion, no ability to go into extension Shoulder Goniometric Range of Motion Shoulder Left Shoulder ROM WFL Yes Right Shoulder ROM WFL Yes PT-OP-M Strength Start: 08/07/19 08:58 Freq: Status: Active Protocol: Document 08/07/19 09:00 [facility] (Rec: 08/13/19 09:50 [facility] [email or web address]) Cervical Spine Strength Cervical Spine Manual Muscle Testing Flexion (C1-2) 3 Fair Extension 3 Fair Rotation Left 3 Fair Rotation Right 3 Fair Lateral Flexion Left (C3) 3 Fair Lateral Flexion Right (C3) 3 Fair Shoulder Strength Shoulder Manual Muscle Testing Right Flexion 3+ Fair+ Abduction (C5) 3+ Fair+ Elbow/Forearm Strength Elbow and Forearm Manual Muscle Testing Right Flexion (C6) 4 Good Extension (C7) 4 Good Wrist Strength Wrist Manual Muscle Testing Right Flexion (C7) 3 Fair Extension (C6) 4 Good PT-OP-Q Treatments Start: 08/07/19 08:58 Freq: Status: Active Protocol: Document 09/14/19 10:35 [facility] (Rec: 09/14/19 14:40 [facility] [email or web address]) Cardio Equipment Recumbent Elliptical (DataSift) Duration (Minutes) 8 Resistance 4 Seat Position 6 Therapeutic Exercises Standing Exercises 4 Standing Exercise Name rows, lat pull down Side bilateral Resistance level 1 band Reps/Minutes 3x10 2 Standing Exercise Name wall clock Side bilateral Resistance level 1 band Reps/Minutes 3x5 PT-OP-R Modalities Start: 08/07/19 08:58 Freq: Status: Active Protocol: Document 09/14/19 10:35 [facility] (Rec: 09/14/19 14:40 [facility] [email or web address]) Spinal Traction Traction Treatment cervical traction Method Static Patient Position Supine Force Applied (Pounds) 15 Duration of Treatment (Minutes) 15 Traction Treatment Comment 20* flexion (lowest setting) portable unit PT-OP-T Assessment and Plan Start: 08/07/19 08:58 Freq: Status: Active Protocol: Document 09/14/19 10:35 [facility] (Rec: 09/14/19 14:40 [facility] [email or web address]) Physical Therapy Assessment Assessment Summary Assessment Pt stated neck pain decreased 3/10 post ther ex and cervical traction 0/10 with increased mobility. Good response to tx. Cued for scap stab during ex. Physical Therapy Plan Frequency and Duration Frequency of Treatment 2x/Week Duration of Treatment 8 weeks Plan of Care Start Date 08/07/19 Plan of Care End Date 10/02/19 Therapeutic Interventions Therapeutic Interventions Home Exercise Program,Joint Mobilizations,Manual Therapy, Self-Care/Home Management,Soft Tissue Mobilization, Therapeutic Exercises Modalities Cold Pack/Ice Massage,Electric Stimulation,Ultrasound Next Visit Focus/Plan Next Note Type Treatment Note Next Visit Plan assess last tx mechanical cervical traction
--- NOTE | 2019-09-18 10:38 | PT.OTN ---
Current Diagnoses Radiculopathy, cervical region (09/18/19) Physical Therapy Treatment Note PT-OP-A Visit Information Start: 08/07/19 08:58 Freq: Status: Active Protocol: Document 09/18/19 10:25 SP (Rec: 09/18/19 10:38 SP [email or web address]) Out-Patient Physical Therapy Visit Information Visit Information Visit Type Treatment Note Visit Start Time 09:44 Visit Stop Time 10:30 Total Visit Minutes 46 Visit Number 7 Number of NURSERY NURSE Visits 3 PT-OP-B Current Condition Start: 08/07/19 08:58 Freq: Status: Active Protocol: Document 08/07/19 09:00 [facility] (Rec: 08/09/19 14:28 [facility] [email or web address]) Current Condition History of Current Condition Onset Date chronic hx of neck pain gotten worse recently Current Complaints neck pain rated 4/10 and right sided radiculopathy, ears ringing History of Current Condition 64 year old female with chronic hx of neck pain but recently she has noticed a increase in her symptoms. She reports she can hardly move her head to the right side, she gets numbness into the fingers on her right side and notices a weakness in her right hand. Things like opening a jar she notes she cannot due. She feels weakness into her legs as well and is currently not on a exercise program. Past medical history includes a gastric bypass which she feels really helped her, history of 2 major falls which included slipping and hitting her face on a railing giving her two black eyes. 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 with likelihood of significant spinal and foraminal stenosis from C-5 inferiorly Current Functional Impairments (Reported) Functional Limitations- ADL's c/o her hands going numb when doing dishes, ADL's that require bending increases pain and arm numbness, she finds she can't pull weeds now due to pain and her hands being weak, severe difficulty opening a tight or new jar, sleep is moderately disturbed 2-3 hour sleep loss PT-OP-C Subjective Start: 08/07/19 08:58 Freq: Status: Active Protocol: Document 09/18/19 10:25 SP (Rec: 09/18/19 10:38 SP [email or web address]) OP-PT Subjective Patient Comments Patient Comments Pt reported 5/10 headache starting PT, no tingling/ numbness in hands/arms today and lessening instances, goes away with the postural ex. Noted forward head, shld upon arrival. Patient Reported Progress Improving PT-OP-F Manual Assessment Start: 08/07/19 08:58 Freq: Status: Active Protocol: Document 08/07/19 09:00 [facility] (Rec: 08/09/19 14:28 REPLACED BY [facility] [email or web address]) Manual Assessments Soft Tissue Assessment Soft Tissue Mobility Assessment tightness in the scalenes B anterior,middle, posterior, tightness in the upper trapezius and levator scapula B Right sided SCM tightness suboccipital tightness and lack of full upper cervical flexion pectoralis tightness bilateral Joint Mobility Assessment Joint Mobility Assessment hypomobility of the lower C spine and upper thoracic spine PT-OP-J Posture/Palpation/Skin Start: 08/07/19 08:58 Freq: Status: Active Protocol: Document 08/07/19 09:00 [facility] (Rec: 08/09/19 14:28 REPLACED BY [facility] [email or web address]) Posture Evaluation Position Standing Evaluation View Lateral Head/C-Spine Posture Flexed,Side Bent Right T-Spine Posture Increased Kyphosis Shoulder Posture (L) Rounded,(R) Rounded Scapula Posture (L) Protracted,(R) Protracted Palpation Assessment Location One Palpation Location right upper trapezius, levator scapula, scalenes, clavicle, SCM Palpation Findings Soft Tissue Tightness,Muscle Guarding,Tenderness PT-OP-K Range of Motion Start: 08/07/19 08:58 Freq: Status: Active Protocol: Document 08/07/19 09:00 [facility] (Rec: 08/09/19 14:28 REPLACED BY [facility] [email or web address]) Cervical Spine Range of Motion Cervical Spine Active Testing Position Sitting Flexion 10 Extension 0 Rotation Left 10 Rotation Right 5 Lateral Flexion Left 10 Lateral Flexion Right 5 ROM Limitations Soft Tissue Tightness, Contracture,Pain Comments very painfull cervcial ROM, very limited upper cervical flexion, no ability to go into extension Shoulder Goniometric Range of Motion Shoulder Left Shoulder ROM WFL Yes Right Shoulder ROM WFL Yes PT-OP-M Strength Start: 08/07/19 08:58 Freq: Status: Active Protocol: Document 08/07/19 09:00 [facility] (Rec: 08/13/19 09:50 [facility] [email or web address]) Cervical Spine Strength Cervical Spine Manual Muscle Testing Flexion (C1-2) 3 Fair Extension 3 Fair Rotation Left 3 Fair Rotation Right 3 Fair Lateral Flexion Left (C3) 3 Fair Lateral Flexion Right (C3) 3 Fair Shoulder Strength Shoulder Manual Muscle Testing Right Flexion 3+ Fair+ Abduction (C5) 3+ Fair+ Elbow/Forearm Strength Elbow and Forearm Manual Muscle Testing Right Flexion (C6) 4 Good Extension (C7) 4 Good Wrist Strength Wrist Manual Muscle Testing Right Flexion (C7) 3 Fair Extension (C6) 4 Good PT-OP-Q Treatments Start: 08/07/19 08:58 Freq: Status: Active Protocol: Document 09/18/19 10:25 SP (Rec: 09/18/19 10:38 SP [email or web address]) Therapeutic Exercises Supine Exercises 4 Supine Exercise Name shld FF, diagonal (Y) Side bilateral Resistance LEvel 2 TB Equipment Used foam roller Reps/Minutes 2x10 Comments reported little tingling Y, went away with FF 3 Supine Exercise Name single arm rows (bow hunters) Side bilateral Resistance level 2 TB Equipment Used foam roller Reps/Minutes 3x10 2 Supine Exercise Name HABD Side bilateral Resistance level 2 TB Equipment Used foam roller Reps/Minutes 3x10 Standing Exercises DNF band Standing Exercise Name DNF Resistance Level 1 band Reps/Minutes 3x10, 5 sec hold PT-OP-R Modalities Start: 08/07/19 08:58 Freq: Status: Active Protocol: Document 09/18/19 10:25 SP (Rec: 09/18/19 10:38 SP [email or web address]) Spinal Traction Traction Treatment cervical traction Method Static Patient Position Supine Force Applied (Pounds) 18 Duration of Treatment (Minutes) 10 Traction Treatment Comment 20* flexion (lowest setting) portable unit PT-OP-T Assessment and Plan Start: 08/07/19 08:58 Freq: Status: Active Protocol: Document 09/18/19 10:25 SP (Rec: 09/18/19 10:38 SP [email or web address]) Physical Therapy Assessment Assessment Summary Assessment Pt had good response to tx. Pt reported decreased stiffening in neck/shoulders post ex and headache went away but end of tx. Noted increased upright posture, neutral neck positioning when leaving. Cued as needed for CS to neutral and arm positioning during ther ex to decrease hand tingling. Physical Therapy Plan Frequency and Duration Frequency of Treatment 2x/Week Duration of Treatment 8 weeks Plan of Care Start Date 08/07/19 Plan of Care End Date 10/02/19 Therapeutic Interventions Therapeutic Interventions Home Exercise Program,Joint Mobilizations,Manual Therapy, Self-Care/Home Management,Soft Tissue Mobilization, Therapeutic Exercises Modalities Cold Pack/Ice Massage,Electric Stimulation,Ultrasound Next Visit Focus/Plan Next Note Type Treatment Note Next Visit Plan TS rotation incorporation with scap stab ther ex.
--- NOTE | 2019-09-25 18:13 | PT.OTN ---
Current Diagnoses Radiculopathy, cervical region (09/25/19) Physical Therapy Treatment Note PT-OP-A Visit Information Start: 08/07/19 08:58 Freq: Status: Active Protocol: Document 09/25/19 18:08 [facility] (Rec: 09/25/19 18:13 [facility] [email or web address]) Out-Patient Physical Therapy Visit Information Visit Information Visit Type Treatment Note Visit Start Time 09:00 Visit Stop Time 09:45 Total Visit Minutes 45 Visit Number 8 Number of PATTERNMAKER METAL Visits 4 PT-OP-B Current Condition Start: 08/07/19 08:58 Freq: Status: Active Protocol: Document 08/07/19 09:00 [facility] (Rec: 08/09/19 14:28 [facility] [email or web address]) Current Condition History of Current Condition Onset Date chronic hx of neck pain gotten worse recently Current Complaints neck pain rated 4/10 and right sided radiculopathy, ears ringing History of Current Condition 64 year old female with chronic hx of neck pain but recently she has noticed a increase in her symptoms. She reports she can hardly move her head to the right side, she gets numbness into the fingers on her right side and notices a weakness in her right hand. Things like opening a jar she notes she cannot due. She feels weakness into her legs as well and is currently not on a exercise program. Past medical history includes a gastric bypass which she feels really helped her, history of 2 major falls which included slipping and hitting her face on a railing giving her two black eyes. 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 with likelihood of significant spinal and foraminal stenosis from C-5 inferiorly Current Functional Impairments (Reported) Functional Limitations- ADL's c/o her hands going numb when doing dishes, ADL's that require bending increases pain and arm numbness, she finds she can't pull weeds now due to pain and her hands being weak, severe difficulty opening a tight or new jar, sleep is moderately disturbed 2-3 hour sleep loss PT-OP-C Subjective Start: 08/07/19 08:58 Freq: Status: Active Protocol: Document 09/25/19 18:08 [facility] (Rec: 09/25/19 18:13 [facility] [email or web address]) OP-PT Subjective Patient Comments Patient Comments pt reports overall she is doing well with her exercises. She notes her posture has improved and she feels she is ready to work on exercises independently after today PT-OP-F Manual Assessment Start: 08/07/19 08:58 Freq: Status: Active Protocol: Document 08/07/19 09:00 [facility] (Rec: 08/09/19 14:28 [facility] [email or web address]) Manual Assessments Soft Tissue Assessment Soft Tissue Mobility Assessment tightness in the scalenes B anterior,middle, posterior, tightness in the upper trapezius and levator scapula B Right sided SCM tightness suboccipital tightness and lack of full upper cervical flexion pectoralis tightness bilateral Joint Mobility Assessment Joint Mobility Assessment hypomobility of the lower C spine and upper thoracic spine PT-OP-J Posture/Palpation/Skin Start: 08/07/19 08:58 Freq: Status: Active Protocol: Document 08/07/19 09:00 [facility] (Rec: 08/09/19 14:28 [facility] [email or web address]) Posture Evaluation Position Standing Evaluation View Lateral Head/C-Spine Posture Flexed,Side Bent Right T-Spine Posture Increased Kyphosis Shoulder Posture (L) Rounded,(R) Rounded Scapula Posture (L) Protracted,(R) Protracted Palpation Assessment Location One Palpation Location right upper trapezius, levator scapula, scalenes, clavicle, SCM Palpation Findings Soft Tissue Tightness,Muscle Guarding,Tenderness PT-OP-K Range of Motion Start: 08/07/19 08:58 Freq: Status: Active Protocol: Document 08/07/19 09:00 [facility] (Rec: 08/09/19 14:28 [facility] [email or web address]) Cervical Spine Range of Motion Cervical Spine Active Testing Position Sitting Flexion 10 Extension 0 Rotation Left 10 Rotation Right 5 Lateral Flexion Left 10 Lateral Flexion Right 5 ROM Limitations Soft Tissue Tightness, Contracture,Pain Comments very painfull cervcial ROM, very limited upper cervical flexion, no ability to go into extension Shoulder Goniometric Range of Motion Shoulder Left Shoulder ROM WFL Yes Right Shoulder ROM WFL Yes PT-OP-M Strength Start: 08/07/19 08:58 Freq: Status: Active Protocol: Document 08/07/19 09:00 [facility] (Rec: 08/13/19 09:50 [facility] [email or web address]) Cervical Spine Strength Cervical Spine Manual Muscle Testing Flexion (C1-2) 3 Fair Extension 3 Fair Rotation Left 3 Fair Rotation Right 3 Fair Lateral Flexion Left (C3) 3 Fair Lateral Flexion Right (C3) 3 Fair Shoulder Strength Shoulder Manual Muscle Testing Right Flexion 3+ Fair+ Abduction (C5) 3+ Fair+ Elbow/Forearm Strength Elbow and Forearm Manual Muscle Testing Right Flexion (C6) 4 Good Extension (C7) 4 Good Wrist Strength Wrist Manual Muscle Testing Right Flexion (C7) 3 Fair Extension (C6) 4 Good PT-OP-Q Treatments Start: 08/07/19 08:58 Freq: Status: Active Protocol: Document 09/25/19 18:08 [facility] (Rec: 09/25/19 18:13 [facility] [email or web address]) Cardio Equipment Recumbent Elliptical (Invoca) Duration (Minutes) 8 Resistance 4 Seat Position 6 Therapeutic Exercises Sitting Exercises 2 Sitting Exercise Name Median nerve flossing Reps/Minutes 5-10 hold x10 Comments cued decreased TS extension ( HO provided) 1 Sitting Exercise Name Upper trap stretch seated in chair Reps/Minutes 10 hold x10 Comments relaxed neutral shlds, elevated posture, clasp under chair Other Exercises [address] chest stretch Side bilateral Manual Therapy Treatment Soft Tissue Mobilization 2 Body Location SCM mobilization with movement 1 Body Location upper trapezius, levator scapula, scalenes Mobilization Type Myofascial Release Body Position Supine Comments B upper traps, lev scap, suboccipitals, suboccipital release. Instruction self using theracane with active shld or head turns/nods. Joint Mobilizations 1 Joint gentle PA mobs T1-T2 Body Position seated PT-OP-R Modalities Start: 08/07/19 08:58 Freq: Status: Active Protocol: Document 09/18/19 10:25 SP (Rec: 09/18/19 10:38 SP [email or web address]) Spinal Traction Traction Treatment cervical traction Method Static Patient Position Supine Force Applied (Pounds) 18 Duration of Treatment (Minutes) 10 Traction Treatment Comment 20* flexion (lowest setting) portable unit PT-OP-T Assessment and Plan Start: 08/07/19 08:58 Freq: Status: Active Protocol: Document 09/25/19 18:08 [facility] (Rec: 09/25/19 18:13 [facility] [email or web address]) Physical Therapy Assessment Goals Four Impairment Reduced strength of the right Upper extremity C5-6 C 6-7 Law Secretary Goal (LTG) Improve UE strength of the right that is being caused most likely by foraminal stenosis by improving cervical spine stability, ROM, and UE strengthening. LTG Duration 8 weeks Three Impairment c/o right hand going numb with activities such as washing dishes Group Home Goal (LTG) Reduce complaints of radicular symptoms with activities that cause forward bend such as dishes GOAL MET LTG Duration 8 weeks Two Impairment Restricted cervical spine ROM with pain Group Home Goal (LTG) Improve cervical spine ROM to WFL without increased pain GOAL MET LTG Duration 8 weeks One Impairment Pain rated 4/10 with right sided radicular symptoms Short Term Goal (STG) Reduce pain to mild pain and improved sleeping through the night GOOD PROGRESS STG Duration 4-5 weeks Group Home Goal (LTG) Gina reports a overall reduction in pain including increasing reading tolerance and decreaseing headaches GOOD PROGRESS LTG Duration 6-8 weeks Progress Towards Goals Progress Towards Goals Progressing Toward Goals Assessment Summary Assessment Gina has responded well to PT and has shown good improvements with increased cervical spine ROM and improved postural habits. She is able to decrease her pain levels with postural corrections. She feels she is independent with her home program and will be discharged at this time Physical Therapy Plan Discharge Physical Therapy Discharge Reasons Patient Request Discharge Comments DC due to pt being independent with HEP
== END 2019-09-26 16:24 | disposition home or self-care (01) ==
LOC: PHYS 09:00
PROVIDERS: PCP Nurse Practitioner; Visit Provider Nurse Practitioner
DX: M54.12 Radiculopathy, cervical region (principal)
CPT/HCPCS: 97012; 97110; 97140; 97161

== ENCOUNTER 2020-09-06 09:15 | Emergency (ER) | payer MEDICARE, OTHER, SELFPAY ==
[2020-09-06 09:27] VITALS: BP 173/81; PULSE 66; RESP 12; TEMP 36.6; O2SAT 99; BMI 60.1
--- NOTE | 2020-09-06 09:28 | ED_ITS ---
HPI - Skin/Abscess/Foreign Bdy General Chief complaint: Skin/Abscess/Foreign Body Stated complaint: Cold sore outbreak Time Seen by Provider: 09/06/20 09:20 Source: patient Mode of arrival: Ambulatory Limitations: no limitations History of Present Illness HPI narrative: 65-year-old female nonsmoker with history of cold sores and chronic allergy type symptoms presents with interruption of cold sores on her lower lip. She has had herpes simplex 1 in the past and tends to do well on acyclovir She denies any intraoral complications and no trouble swallowing. She has had no fever or chills. She has had no runny nose, sneezing but has had the occasional cough and her chronically itchy skin. On occasion she takes hydroxyzine which seems to help the itchiness of her skin She has had no chest pain or dizziness. She denies any exposure to persons known or under suspicion for coronavirus and is otherwise well and free of complaint MD complaint: lesion Onset (ago): hour(s) Tetanus up to date: yes Location: face (Lower lip) Severity: mild Quality: burning Pain Consistency: constant Relieving factors: none Exacerbating factors: none Context: none Associated symptoms: cough Treatments prior to arrival: none Related Data Previous Rx's Medication Instructions Recorded estradiol 1 gram VAG DAILY #42.5 gram 05/28/19 hydroxyzine HCl 10 mg tablet 10 mg PO TID PRN #90 tab 05/28/19 estradiol 10 mcg vaginal tablet See Rx Instructions VAG .COMPLEX 08/28/19 14 Days #20 tab acyclovir 400 mg PO 5XD 10 Days #50 tab 09/06/20 Allergies Allergy/AdvReac Type Severity Reaction Status Date / Time Sulfa (Sulfonamide Allergy Unknown Unverified 09/19/19 11:33 Antibiotics) [SULFA (SULFONAMIDE ANTIBIOTICS)] Review of Systems Constitutional Constitutional: Denies chills, Denies fatigue, Denies fever(s), Denies frequent falls, Denies lethargy and Denies weakness Eyes Eyes: Denies change in vision, Denies eye discharge, Denies irritation and Denies loss of vision ENT Ears, Nose, Mouth, and Throat: Denies change in voice, Denies dizziness, Denies neck pain, Denies sore throat and Denies throat swelling Cardiovascular Cardiovascular: Denies chest pain, Denies irregular heart rhythm, Denies lightheadedness, Denies palpitations, Denies dyspnea, Denies dyspnea on exertion and Denies orthopnea Respiratory Respiratory: Reports cough, Denies dyspnea, Denies dyspnea on exertion and Denies wheezing Gastrointestinal Gastrointestinal: Denies abdominal pain, Denies change in bowel habits, Denies diarrhea, Denies nausea and Denies vomiting Musculoskeletal Musculoskeletal: Denies neck pain and Denies numbness Integumentary/Breasts Skin/Breast: Denies pruritus, Reports lesions, Denies erythema, Denies rash, Reports skin pain, Reports sores and Denies wounds Neurologic Neurologic: Denies behavioral changes, Denies confusion, Denies dizziness, Denies frequent falls, Denies loss of vision, Denies numbness and Denies weakness Psychiatric Psychiatric: Denies anxiety, Denies behavioral changes, Denies confusion, Denies depression, Denies homicidal ideation and Denies suicidal ideation Endocrine Endocrine: Denies fatigue, Denies flushing and Denies palpitations Hematologic/Lymphatic Hematologic/Lymphatic: Denies easy bruising Allergic/Immunologic Allergic/Immunologic: Denies urticaria, Denies throat swelling and Denies wheezing Patient History Social History Smoking Status: Never smoker Smoking Status: Never smoker Exam Narrative Exam Narrative: GEN: AOx3 and in mild distress EYES: Pupils are equal, round, and reactive to light and accommodation. Extraoccular muscles are intact bilaterally. There is no subconjunctival he morrhage or exudate. ENT: scaly, erythematous lesions on lower lip, no blisters. No intraoral involvement. CHEST: Lungs are clear to auscultation bilaterally and free of wheezes, rales, or rhonchi. Heart rate is regular rhythm, there are no murmurs, clicks, rubs, or gallops. There is no chest wall tenderness. ABD: Abdomen is soft and nontender. There is no guarding or rebound. Bowel sounds are normal in all 4 quadrants. There is no mass or organomegaly. EXT: Full painless ROM of all extremities with no loss of sensation or strength. SKIN: Warm, pink, and dry. No erythema or rash Initial Vital Signs Initial Vital Signs: Vital Signs Temperature 97.9 F 09/06/20 09:27 Pulse Rate 66 09/06/20 09:27 Respiratory Rate 12 09/06/20 09:27 Blood Pressure 173/81 H 09/06/20 09:27 Pulse Oximetry 99 09/06/20 09:27 Course Orders Ordered: ED Orders 09/06/20 09:41 XR chest 2V Stat Vital Signs Vital signs: Vital Signs - 8 hr 09/06/20 09:27 09/06/20 10:36 Temperature 97.9 F Pulse Rate 66 63 Respiratory Rate 12 12 Blood Pressure 173/81 H 148/84 H Pulse Oximetry 99 97 MDM - Skin/Abscess/Foreign Bdy Imaging Data Chest x-ray: Radiologist's Impression: [address] [address] XRay Report Signed Patient: Gina Kenney HMR#: [id number] : [id number]:[id number] Age/Sex: 65 / FDate of Service: 09/06/20 Loc: ED Accession Number: [id number] Procedure: XR chest 2V Ordering Provider: Cameron Henson D.O. PROCEDURE: XR CHEST 2V INDICATIONS: cough, phlegm production TECHNIQUE: 2 views of the chest were acquired. COMPARISON: None. FINDINGS: Surgical changes and devices: None. Lungs and pleura: Lungs are clear. No pleural effusions or pneumothorax. Mediastinum: Mediastinal contours are normal. Heart size is normal. Bones and chest wall: No suspicious bony abnormalities. Soft tissues appear unremarkable. IMPRESSION: 1. No acute cardiopulmonary disease. Dictated by: Nitesh Perez M.D. on 09/06/2020 at 9:15 Approved by: Nitesh Perez M.D. on 09/06/2020 at 9:16 Discharge Plan Departure Patient Disposition: Home Clinical Impression: HSV (herpes simplex virus) infection Discharge Date/Time: 09/06/20 10:38 Instructions: DI for Cold Sores Activity Restrictions/Additional Instructions: *You have been diagnosed with [cold sore exacerbation, along with productive cough and occasionally itchy skin] *What to do: *Take medications as directed: In addition to the prescription for acyclovir (sent to [facility]) please consider taking a daily antihistamine such as Evelia, Zyrtec, Claritin as your cough is likely due to a mild histamine reaction. *Follow up with your primary care provider in 2-3 days, call for an appointment. Let them know you were seen in the Emergency Department and that we ask that you be seen in follow up *Return to ER if you should have any new, worsening or concerning symptoms Radiographic study has been interpreted by an emergency physician. The official diagnosis by radiology will be performed within the next 24 hours and should there be any change in outcome we will notify you of how to proceed. Prescriptions: New acyclovir 400 mg tablet 400 mg PO 5XD 10 Days Qty: 50 RF: 0 No Action estradiol 10 mcg tablet See Rx Instructions VAG .COMPLEX 14 Days Qty: 20 RF: 11 estradiol 0.01 % (0.1 mg/gram) cream 1 gram VAG DAILY Qty: 42.5 RF: 11 hydroxyzine HCl 10 mg tablet 10 mg PO TID PRN (Reason: itching) Qty: 90 RF: 3 Referrals: Mila Chou ARNP [Primary Care Provider] -
--- NOTE | 2020-09-06 09:41 | DI.RAD.S_ITS ---
PROCEDURE: XR CHEST 2V INDICATIONS: cough, phlegm production TECHNIQUE: 2 views of the chest were acquired. COMPARISON: None. FINDINGS: Surgical changes and devices: None. Lungs and pleura: Lungs are clear. No pleural effusions or pneumothorax. Mediastinum: Mediastinal contours are normal. Heart size is normal. Bones and chest wall: No suspicious bony abnormalities. Soft tissues appear unremarkable. IMPRESSION: 1. No acute cardiopulmonary disease. Dictated by: Nitesh Perez M.D. on 09/06/2020 at 9:15 Approved by: Nitesh Perez M.D. on 09/06/2020 at 9:16
[2020-09-06 10:36] VITALS: BP 148/84; PULSE 63; RESP 12; O2SAT 97
== END 2020-09-06 10:38 | disposition home or self-care (01) ==
PROVIDERS: Emergency Provider Emergency Medicine; PCP Nurse Practitioner
DX: B00.1 Herpesviral vesicular dermatitis (principal); R05 Cough
CPT/HCPCS: 71046; 99281; 99283

== ENCOUNTER 2020-09-13 17:36 | Emergency (ER) | payer MEDICARE, OTHER, SELFPAY ==
[2020-09-13 17:47] VITALS: BP 134/60; PULSE 78; RESP 20; TEMP 36.4; O2SAT 98; BMI 28.1
--- NOTE | 2020-09-13 18:16 | ED_ITS ---
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 Previously in the day she does note that she had some mild right forearm muscle spasm that resolved fairly quickly. She has never had spasms this significant in the pain was in the that she felt an emergency room evaluation was appropriate. By the time she seen in the emergency room the majority of the spasm has past but she still is tender in her left lower extremity. She describes no headache, no focal neurologic symptoms, no cognitive deficits, no chest pain, palpitations, dyspnea, abdominal pain, vomiting or diarrhea, lower extremity edema and no recent fevers. Medications include hydroxyzine for pruritus presumably secondary to seasonal allergies. She notes of chronic cough in the mornings again presumably secondary to allergies and improved with Evelia that she has been taking this week. She recently had a right lower lip cold sore that was treated with acyclovir and has almost completely resolved at this point Related Data Previous Rx's Medication Instructions Recorded estradiol 1 gram VAG DAILY #42.5 gram 05/28/19 estradiol 10 mcg vaginal tablet See Rx Instructions VAG .COMPLEX 08/28/19 14 Days #20 tab acyclovir 400 mg PO 5XD 10 Days #50 tab 09/06/20 hydroxyzine HCl 10 mg tablet 10 mg PO TID PRN #90 tab 09/08/20 potassium chloride 20 meq PO DAILY #4 tab 09/13/20 Allergies Allergy/AdvReac Type Severity Reaction Status Date / Time Sulfa (Sulfonamide Allergy Unknown Verified 09/13/20 17:47 Antibiotics) [SULFA (SULFONAMIDE ANTIBIOTICS)] Review of Systems Review of Systems Narrative: Remainder of review of systems including constitutional, ENT, cardiovascular, respiratory, GI, , musculoskeletal, skin, neurologic and psychiatric systems reviewed and are unremarkable except as noted in HPI. Patient History Medical History HSV (herpes simplex virus) infection (Inactive) Social History Smoking Status: Never smoker Smoking Status: Never smoker alcohol intake frequency: 0-2 drinks per day Alcohol type: hard liquor Substance Use Type: does not use Exam Narrative Exam Narrative: General: Healthy appearing, in no acute distress. Able to give a complete and coherent history. Well-nourished well-developed HEENT: Moist mucous membranes, normal sclera with reactive pupils, Neck: supple Respiratory: Lungs are clear to auscultation, no wheezing no rales no rhonchi. Full and symmetrical air movement Cardiac: Regular rate and rhythm no murmurs no bruits Abdomen: Soft nontender good bowel tones, no flank pain Skin: Warm and dry, no rashes Neurologic: Grossly neurologically intact with no obvious asymmetries. She is hyper-reflexic with 4+ reflexes at the patellas and 1 beat of clonus bilaterally Extremities: No trauma, well perfused Psych: Cooperative, appropriate insight and affect Initial Vital Signs Initial Vital Signs: Vital Signs Temperature 97.6 F 09/13/20 17:47 Pulse Rate 78 09/13/20 17:47 Respiratory Rate 20 09/13/20 17:47 Blood Pressure 134/60 09/13/20 17:47 Pulse Oximetry 98 09/13/20 17:47 Course Orders Ordered: ED Orders 09/13/20 17:50 CMP [Comprehensive Metabolic Panel] Stat Complete Blood Count AUTO DIFF Stat Magnesium Stat Discontinued Medications Sodium Chloride (Normal Saline 0.9%) 1,000 mls @ 1,000 mls/hr IV BOLUS ONE Stop: 09/13/20 19:26 Last Infusion: 09/13/20 19:50 Dose: 0 mls/hr Documented by: Admin: 09/13/20 18:49 Dose: 1,000 mls/hr Documented by: NEMO Potassium Chloride (Klor-Con M20) 40 meq PO NOW ONE Stop: 09/13/20 20:53 Last Admin: 09/13/20 21:01 Dose: 40 meq Documented by: [email or web address] Vital Signs Vital signs: Vital Signs - 8 hr 09/13/20 17:47 Temperature 97.6 F Pulse Rate 78 Respiratory Rate 20 Blood Pressure 134/60 Pulse Oximetry 98 MDM - Extremity (Nontraumatic) Lab Data Result diagrams: 09/13/20 17:50 09/13/20 17:50 Labs: Lab Results 09/13/20 09/13/20 09/13/20 Range/Units 17:50 17:50 17:50 WBC 5.8 (4.5-11.0) X10^3/uL RBC 4.29 (4.0-5.2) X10^6/uL Hgb 10.1 L (12.0-16.0) g/dL Hct 32.2 L (36-46) % MCV 75.0 L (80-100) fL MCH 23.6 L (26-34) PG MCHC 31.5 (30-36) % RDW 17.8 H (11.6-14.8) % Plt Count 432 H (150-400) X10^3/uL Neut % (Auto) 51.7 (50-75) % Lymph % (Auto) 33.5 (25-40) % Cabell % (Auto) 8.7 (3-14) % Eos % (Auto) 5.0 H (2-4) % Baso % (Auto) 1.1 (0-2) % Neut # (Auto) 3000 (9423-0326) /uL Lymph # (Auto) 1900 (1213-2322) /uL Cabell # (Auto) 500 (0-900) /uL Eos # (Auto) 300 (0-450) /uL Baso # (Auto) 100 (0-100) /uL Sodium 139 (137-145) mmol/L Potassium 3.3 L (3.4-5.1) mmol/L Chloride 109 H (98-107) mmol/L Carbon Dioxide 19 L (22-32) mmol/L BUN 15 (7-17) mg/dL Creatinine 0.68 (0.52-1.04) mg/dL Estimated GFR > 60.0 (>60) mL/min BUN/Creatinine Ratio 22.1 H (6-22) Glucose 120 H (80-110) mg/dL Calcium 9.1 (8.4-10.2) mg/dL Magnesium 2.3 (1.6-2.3) mg/dL Total Bilirubin 0.2 (0.2-1.3) mg/dL AST 27 (14-36) IU/L ALT 19 (<35) IU/L Alkaline Phosphatase 80 (38-126) U/L Total Protein 6.8 (6.3-8.2) g/dL Albumin 4.0 (3.5-5.0) g/dL Globulin 2.8 (1.7-4.1) g/dL Albumin/Globulin Ratio 1.4 (1.0-2.8) MDM Narrative Medical decision making narrative: 65-year-old woman with severe muscle cramping today quite unusual for her. Medications that she is taking do not suggest side effects. She is given oral potassium in the emergency room and will give her additional potassium for the next 3 days. She does have a significant microcytic anemia will discuss this with her and strongly recommend she follow- up with her primary care physician. There is no evidence of renal failure, kidney failure, stroke or seizure. She is safe for home discharge Discharge Plan Departure Patient Disposition: Home Clinical Impression: Cramp in muscle, Microcytic anemia Instructions: DI for Muscle Spasm Activity Restrictions/Additional Instructions: Thank you for coming in today You did have a slightly low potassium level and I will ask you to take 3 additional days of potassium to get that back to where it should be. This prescription was electronically transmitted to [facility] in [place]. I also noticed a new degree of anemia. Not only do not have enough red blood cells but the ones that you have are very small. This often suggests iron deficiency and chronic blood loss. Please schedule follow-up appointment with your primary care physician to review this and see what recommendations for follow-up are If you have any new or worsening symptoms please feel free to return to the emergency department. I wish you well Prescriptions: New potassium chloride 20 mEq tablet extended release 20 meq PO DAILY Qty: 4 RF: 0 No Action estradiol 10 mcg tablet See Rx Instructions VAG .COMPLEX 14 Days Qty: 20 RF: 11 hydroxyzine HCl 10 mg tablet 10 mg PO TID PRN (Reason: itching) Qty: 90 RF: 0 estradiol 0.01 % (0.1 mg/gram) cream 1 gram VAG DAILY Qty: 42.5 RF: 11 acyclovir 400 mg tablet 400 mg PO 5XD 10 Days Qty: 50 RF: 0
[2020-09-13 18:18] LABS: Add Manual Diff / Slide Review NO; Basophils Absolute Auto 100 /uL (0-100); Basophils Percent Auto 1.1 % (0-2); Eosinophils Absolute Auto 300 /uL (0-450); Hematocrit 32.2 % (36-46); Hemoglobin 10.1 g/dL (12.0-16.0); Lymphocytes Absolute Auto 1900 /uL (1100-4500); Lymphocytes Percent Auto 33.5 % (25-40); Mean Corpuscular HGB Conc 31.5 % (30-36); Mean Corpuscular Hemoglobin 23.6 PG (26-34); Monocytes Absolute Auto 500 /uL (0-900); Monocytes Percent Auto 8.7 % (3-14); Neutrophils Absolute Auto 3000 /uL (1500-7000); Neutrophils Percent Auto 51.7 % (50-75); Platelet Count 432 X10^3/uL (150-400); Red Blood Cell Count 4.29 X10^6/uL (4.0-5.2); Red Cell Distribution Width 17.8 % (11.6-14.8); White Blood Cell Count 5.8 X10^3/uL (4.5-11.0)
[2020-09-13 18:19] LABS: Alanine Aminotransferase 19 IU/L (<35); Albumin Globulin Ratio 1.4 (1.0-2.8); Alkaline Phosphatase 80 U/L (38-126); Aspartate Aminotransferase 27 IU/L (14-36); BUN Creatinine Ratio 22.1 (6-22); Bilirubin Total 0.2 mg/dL (0.2-1.3); Blood Urea Nitrogen 15 mg/dL (7-17); Calcium 9.1 mg/dL (8.4-10.2); Carbon Dioxide 19 mmol/L (22-32); Chloride 109 mmol/L (98-107); Estimated Glomerular Filt Rate > 60.0 mL/min (>60); Globulin 2.8 g/dL (1.7-4.1); Glucose 120 mg/dL (80-110); HEMOLYSIS < 15 (0-50); Potassium 3.3 mmol/L (3.4-5.1); Sodium 139 mmol/L (137-145); Total Protein 6.8 g/dL (6.3-8.2)
[2020-09-13 18:42] LABS: Magnesium 2.3 mg/dL (1.6-2.3)
[2020-09-13] MEDS: SODIUM CHLORIDE 0.9% 1,000 ML 1000 ML IV (18:49)
[2020-09-13] MEDS: POTASSIUM CHLORIDE 20 MEQ TAB 40 MEQ PO (21:01)
[2020-09-13 21:19] VITALS: BP 128/71; PULSE 58; RESP 16; O2SAT 98
== END 2020-09-13 21:19 | disposition home or self-care (01) ==
PROVIDERS: Emergency Medicine; Emergency Provider Emergency Medicine
DX: R25.2 Cramp and spasm (principal); D50.9 Iron deficiency anemia, unspecified
CPT/HCPCS: 36415; 80053; 83735; 85025; 93005; 96360; 99284

== ENCOUNTER → 2021-06-08 08:25 | Outpatient (CLI) | payer MEDICARE, OTHER, SELFPAY ==
--- NOTE | 2021-06-08 08:27 | DI.US.S_ITS ---
LIMITED ULTRASOUND OF RIGHT BREAST: 06/08/2021 CLINICAL: Palpable right breast lump. No prior exams were available for comparison. Color flow and real-time ultrasound of the right breast 12 o'clock region were performed. Fan scale images of the real-time examination were reviewed. There is a 1.6 cm x 1.9 cm x 0.6 cm irregular area of fibrocystic tissue with a circumscribed margin in the right breast at 12 o'clock middle depth 7 cm from the nipple. This irregular area of fibrocystic tissue is mostly anechoic with an abrupt boundary and no posterior acoustic shadowing or enhancement. This correlates as palpated and with mammography findings. Color flow imaging demonstrates that there is no vascularity present. IMPRESSION: PROBABLY BENIGN The 1.6 cm x 1.9 cm x 0.6 cm irregular area of fibrocystic tissue in the right breast most likely is clustered cysts or benign fibrocystic change but has a differential diagnosis of apocrine metaplasia, and is probably benign. A follow-up right mammogram and an ultrasound in 6 months is recommended to demonstrate stability. Findings and recommendations were conveyed to the patient at time of exam. This exam was interpreted at Station ID: [id number]. Electronically Signed By: Yuliya anaya/:06/08/2021 10:20:22 letter sent: Followup Recommended Ultrasound BI-RADS: 3 Probably benign
--- NOTE | 2021-06-08 08:27 | DI.MG.S_ITS ---
BILATERAL DIGITAL DIAGNOSTIC MAMMOGRAM 3D/2D: 06/08/2021 CLINICAL: Right breast lump. Comparison is made to exams dated: 05/02/2015 mammogram and 05/25/2013 mammogram - outside location. There are scattered fibroglandular elements in both breasts. There is a new 1.8 x 1.4 cm irregular high density asymmetry with an obscured and lobulated margin in the right breast at 12 o'clock middle depth. This is seen in additional views. No other significant masses, calcifications, or other findings are seen in either breast. IMPRESSION: INCOMPLETE: NEEDS ADDITIONAL IMAGING EVALUATION The new 1.8 cm irregular high density asymmetry in the right breast is new but remains indeterminate. An ultrasound is recommended. This was performed immediately following this exam. This exam was interpreted at Station ID: [id number]. NOTE: For mammograms, a report in lay terms will be sent to the patient. Approximately 15% of breast malignancies will not be visualized mammographically. In the management of a palpable breast mass, a negative mammogram must not discourage biopsy of a clinically suspicious lesion. Electronically Signed By: Yuliya anaya/:06/08/2021 09:31:45 ACR BI-RADS Category 0: Incomplete [id number]
== END ==
PROVIDERS: PCP Nurse Practitioner; Referring Provider Nurse Practitioner; Visit Provider Nurse Practitioner
DX: N63.15 Unspecified lump in the right breast, overlapping quadrants (principal); R92.8 Other abnormal and inconclusive findings on diagnostic imaging of breast
CPT/HCPCS: 76642; 77066; G0279

== ENCOUNTER → 2021-12-09 08:27 | Outpatient (CLI) | payer MEDICARE, OTHER, SELFPAY ==
--- NOTE | 2021-12-09 08:29 | DI.US.S_ITS ---
LIMITED ULTRASOUND OF RIGHT BREAST AND AXILLA: 12/09/2021 CLINICAL: Patient returns for a 6 month follow up of the right breast. Comparison is made to exams dated: 12/09/2021 mammogram, 06/08/2021 ultrasound, 06/08/2021 mammogram - [facility], and 05/02/2015 mammogram - outside location. Color flow ultrasound of the right breast 12 o'clock, and axilla regions was performed. Fan scale images of the real-time examination were reviewed. There is an oval enlarged lymph node with a circumscribed margin in the right axilla. This oval enlarged lymph node is hypoechoic with no fatty hilum. This correlates with mammography findings. Color flow imaging demonstrates that there is vascularity present. There also is a 1.6 cm x 2.4 cm x 1.3 cm irregular area of fibrocystic tissue with a circumscribed margin in the right breast at 12 o'clock middle depth 7 cm from the nipple. This irregular area of fibrocystic tissue is anechoic and hypoechoic but of mixed echogenicity with an abrupt boundary. This abnormality is increased in size and correlates as palpated and with mammography findings. Color flow imaging demonstrates that there is an adjacent vascularity. While the reported size difference may be exaggerated by differences in measuring technique between exams, the lesion does appear to have subjectively increased in size. A satellite hypoechoic lesion is seen measuring 0.9 x 0.7 x 0.6 cm, which has also mildly increased in size when compared to the cine images from the prior exam and is most likely a complicated cyst. IMPRESSION: SUSPICIOUS OF MALIGNANCY The oval enlarged lymph node in the right axilla is suspicious of malignancy. An ultrasound guided biopsy is recommended. The 1.6 cm x 2.4 cm x 1.3 cm irregular area of fibrocystic tissue in the right breast at 12 o'clock middle depth has a differential diagnosis of clustered cysts, a complex cyst, or fibrocystic change and is suspicious of malignancy. An ultrasound guided biopsy is recommended. The findings and recommendations were discussed with the patient by telephone at the time of the exam. This exam was interpreted at Station ID: [id number]. Electronically Signed By: Bo lee/de:12/09/2021 11:22:21 letter sent: Biopsy Required Ultrasound BI-RADS: 4 Suspicious for malignancy
--- NOTE | 2021-12-09 08:29 | DI.MG.S_ITS ---
UNILATERAL RIGHT DIGITAL DIAGNOSTIC MAMMOGRAM 3D/2D: 12/09/2021 CLINICAL: Short term follow up of the right breast. Comparison is made to exams dated: 06/08/2021 ultrasound, 06/08/2021 mammogram - [facility], and 05/02/2015 mammogram - outside location. There are scattered fibroglandular elements in right breast. There is a 1.8 cm irregular high density asymmetry with an obscured and microlobulated margin in the right breast at 12 o'clock middle depth. This is more prominent. There also is an enlarged oval right axillary lymph node with a circumscribed margin superior region seen on the mediolateral oblique view only. Patient states no history of recent vaccination or recent systemic or right arm infection. No other significant masses or calcifications are seen in the breast. IMPRESSION: INCOMPLETE: NEEDS ADDITIONAL IMAGING EVALUATION The 1.8 cm irregular high density asymmetry in the right breast at 12 o'clock middle depth is indeterminate. An ultrasound is recommended. The enlarged oval right axillary lymph node superior region seen on the mediolateral oblique view only is indeterminate. An ultrasound is recommended. This exam was interpreted at Station ID: [id number]. NOTE: For mammograms, a report in lay terms will be sent to the patient. Approximately 15% of breast malignancies will not be visualized mammographically. In the management of a palpable breast mass, a negative mammogram must not discourage biopsy of a clinically suspicious lesion. Electronically Signed By: Bo Madrigal M.D. ar/:12/09/2021 11:13:08 ACR BI-RADS Category 0: Incomplete [id number]
== END ==
PROVIDERS: PCP Nurse Practitioner; Referring Provider Nurse Practitioner; Visit Provider Nurse Practitioner
DX: R92.8 Other abnormal and inconclusive findings on diagnostic imaging of breast (principal); N63.15 Unspecified lump in the right breast, overlapping quadrants; R59.0 Localized enlarged lymph nodes
CPT/HCPCS: 76642; 77065; G0279

== ENCOUNTER → 2021-12-28 10:10 | Outpatient (CLI) | payer MEDICARE, OTHER, SELFPAY ==
--- NOTE | 2021-12-28 | PATH_ITS ---
[facility] Accession Number: [id number] . 01 Material submitted: . lymph node - RIGHT AXILLARY LYMPH NODE BIOPSY . 02 Diagnosis: A. Right Axillary Lymph Node, Biopsy: Metastatic ductal carcinoma in association with lymphoid and fibroadipose tissue. Single largest focus of approximately 9 mm. MRV 01/01/2022 1251 Local . 02 Electronically signed: . Abida Stephens MD, Pathologist NPI- [id number] . 01 Gross description: . RIGHT AXILLARY LYMPH NODE BIOPSY: Received in formalin are 3 fragment(s) of day, soft tissue measuring 0.6 x 0.1 x 0.1 cm to 1.3 x 0.1 x 0.1 cm submitted entirely in 1 cassette(s) /JASON 12/29/2021 0113 Local . 02 Pathologist provided ICD-10: C79.81 . 02 CPT . 438868 Performed at: 01 [facility] [address] [facility], [place], [place] [id number] MD Nitesh Quach MD Phone: [phone] Performed at: 02 [facility] [address] [place], [place] [id number] MD Carly Chaves MD Phone: [phone]
--- NOTE | 2021-12-28 | DI.US.S_ITS ---
ULTRASOUND GUIDED BIOPSY RIGHT BREAST WITH POST ULTRASOUND IMAGIN12/28/2021 CLINICAL: Right breast mass. PATIENT CONSENT: Risks (minor bleeding, infection, vasovagal reaction and repeat procedure), benefits and alternatives were explained to the patient and written informed consent was obtained. Correlation is made to exams dated: 12/09/2021 ultrasound, 12/09/2021 mammogram, 06/08/2021 ultrasound, 06/08/2021 mammogram - [facility], and 05/02/2015 mammogram - outside location. An ultrasound guided biopsy using real-time ultrasound was performed for the irregular shaped mass located in the right breast at 12 o'clock posterior depth 7 cm from the nipple. The skin was prepped in the usual manner. A 13 gauge biopsy needle was placed adjacent to the abnormality under ultrasound guidance. Once the needle was documented to be in the correct location, four specimens were obtained using an automated biopsy gun. Post procedure ultrasound imaging was obtained. The specimens were sent to the laboratory for pathological analysis. IMPRESSION: ULTRASOUND GUIDED BIOPSY MALIGNANT Ultrasound guided biopsy of the mass in the right breast posterior depth was successful. Note that the patient refused to allow placement of a clip. Pathology demonstrate invasive ductal carcinoma. Pathology results are concordant with imaging findings. A surgical/oncologic consultation is recommended. This exam was interpreted at Station ID: [id number]. Kenyon Faith M.D. [facility]/:01/06/2022 11:09:28
--- NOTE | 2021-12-28 | DI.US.S_ITS ---
ULTRASOUND GUIDED BIOPSY RIGHT BREAST WITH POST ULTRASOUND IMAGIN12/28/2021 CLINICAL: Right axillary node biopsy. PATIENT CONSENT: Risks (minor bleeding, infection, vasovagal reaction and repeat procedure), benefits and alternatives were explained to the patient and written informed consent was obtained. Correlation is made to exams dated: 12/09/2021 ultrasound, 12/09/2021 mammogram, 06/08/2021 ultrasound, 06/08/2021 mammogram - [facility], and 05/02/2015 mammogram - outside location. An ultrasound guided biopsy using real-time ultrasound was performed for the lymph node located in the right axilla posterior depth. The skin was prepped in the usual manner. An 18 gauge biopsy needle was placed adjacent to the abnormality under ultrasound guidance. Once the needle was documented to be in the correct location, five specimens were obtained using Temno. Post procedure ultrasound imaging was obtained. The specimens were sent to the laboratory for pathological analysis. IMPRESSION: ULTRASOUND GUIDED BIOPSY MALIGNANT Ultrasound guided biopsy of the lymph node in the right breast posterior depth was successful. Note that the patient refused to allow placement of a clip. Pathology demonstrate metastatic ductal carcinoma. Pathology results are concordant with imaging findings. A surgical/oncologic consultation is recommended. This exam was interpreted at Station ID: [id number]. Kenyon Faith M.D. [facility]/:01/06/2022 11:07:27
--- NOTE | 2021-12-28 | PATH_ITS ---
[facility] Accession Number: [id number] . 01 Material submitted: . breast - RIGHT BREAST MASS 12:00 7CM FN . 02 Diagnosis: A. Right Breast Mass, 12 o'clock, 7 cm From The Nipple, Biopsy: Invasive (ductal) carcinoma with apocrine features, grade 3 of 3 (Sumaya combined histologic grade, total score 8/9): 1. Nuclear pleomorphism: High. (3/3) 2. Mitotic rate: Intermediate. (2/3) 3. Tubular differentiation: None. (3/3) 4. Size of invasive carcinoma: Present on three fragmented cores, single largest dimension at least 8 mm in this sample. 5. Ductal carcinoma in situ: focally present. - Nuclear grade: Moderate to High. - Necrosis: Not identified. 6. Calcifications: Absent. 7. Lymphatic invasion: Absent in this specimen. 8. Prognostic markers: - Estrogen receptor: Low positive (1-10% tumor cells staining, staining intensity weak); see comment section. - Progesterone receptor: Negative (0% tumor cells staining). - HER2: Positive for protein overexpression by immunohistochemistry (3+). [facility] 01/01/2022 1318 Local . 02 Comment: The cancer in this sample has a low level (1-10%) of ER expression by IHC. There are limited data on the overall benefit of endocrine therapies for patients with these results, but they currently suggest possible benefit, so patients are considered eligible for endocrine treatment. There are data that suggest invasive cancers with these results are heterogeneous in both behavior and biology and often have gene expression profiles similar to ER-negative cancers. . 02 Electronically signed: . Abida Stephens MD, Pathologist NPI- [id number] . 01 Gross description: . Received one formalin-filled container, labeled with the patient's name and designated right breast mass 12 o'clock 7 cm FN. The specimen is received with a plastic filter in container, sample loose in container and consists of multiple yellow-day fragments of tissue which range in size from less than 0.1 cm to 1.1 x 0.1 x 0.1 cm. All fragments are totally submitted in one cassette. Possible collection date and time per requisition: 12/28/2021 at 11:28. Total fixation time: Approximately 15 hours. ([id number]) /[facility] 12/29/2021 0359 Local . 02 Microscopic: . A panel of immunohistochemical stains, including prognostic markers, are performed on block A1 in order to assess the invasive carcinoma, with appropriately staining external controls. The results are as follows: . P63: Few positive cells within invasive carcinoma, negative around invasive carcinoma, and positive around focal DCIS. Smooth muscle myosin: Negative around invasive carcinoma, positive around focal DCIS. D20-40: Negative around invasive carcinoma. . Predictive marker immunohistochemical studies are performed on block A1 with the invasive carcinoma showing the following results: . Estrogen receptor (SP1): Low positive (1-10% tumor cells staining, staining intensity weak). Progesterone receptor (1E2): Negative (0% tumor cells staining). Her2 (4B5): Positive for protein overexpression by immunohistochemistry (3+). . Internal controls for ER and TN are not present; false negative results for TN cannot be excluded. Cold ischemic time is <5 minutes. The scoring criteria for breast biomarkers by immunohistochemistry is based on the ASCO/CAP guidelines (Izzy AC et al, J Clin Oncol: 2017Jun 06;36(20):8104-4610 and Maynor DYER et al, Arch Pathol Lab Med: 2009;134(6):907-22). Deparaffinized sections of formalin fixed tissue (along with appropriate positive controls) are incubated with the above antibody(s). Using the automated Buckingham stainer, tissue is incubated with the designated antibody which is then localized by a non-biotin, dual polymer detection system. The external controls are reviewed for appropriate reactivity and found to be adequate. Results on the target cell population are indicated above. These tests have not been validated on decalcified tissue. This test was developed and its performance characteristics determined by [facility]. It has not been cleared or approved by the U.S. Food and Drug Administration. The FDA has determined that such clearance or approval is not necessary. This test is used for clinical purposes. It should not be regarded as investigational or for research. . 02 Pathologist provided ICD-10: C50.911 . 02 CPT . 103816, L72995, Q73862, 314772, 688393, 499694 Performed at: 01 [facility] Cytology [address] [place] [address], [place], [place] [id number] MD Nitesh Quach MD Phone: [phone] Performed at: [address] [facility] [address] [id number] MD Carly Chaves MD Phone: [phone]
== END ==
PROVIDERS: PCP Nurse Practitioner; Referring Provider Nurse Practitioner; Visit Provider Nurse Practitioner
DX: C50.811 Malignant neoplasm of overlapping sites of right female breast (principal); C77.3 Secondary and unspecified malignant neoplasm of axilla and upper limb lymph nodes; Z17.0 Estrogen receptor positive status [ER+]
CPT/HCPCS: 19083; 38505; 76942

== ENCOUNTER → 2022-02-08 16:22 | Outpatient (CLI) | payer MEDICARE, OTHER, SELFPAY ==
[2022-02-08 17:13] LABS: Add Manual Diff / Slide Review NO; Basophils Absolute Auto 100 /uL (0-100); Basophils Percent Auto 1.2 % (0-2); Eosinophils Absolute Auto 200 /uL (0-450); Eosinophils Percent Auto 4.5 % (2-4); Hematocrit 36.9 % (36-46); Hemoglobin 12.2 g/dL (12.0-16.0); Lymphocytes Absolute Auto 2000 /uL (1100-4500); Lymphocytes Percent Auto 37.3 % (25-40); Mean Corpuscular HGB Conc 33.2 % (30-36); Mean Corpuscular Hemoglobin 27.6 PG (26-34); Mean Corpuscular Volume 83.1 fL (80-100); Monocytes Absolute Auto 400 /uL (0-900); Monocytes Percent Auto 7.2 % (3-14); Neutrophils Absolute Auto 2700 /uL (1500-7000); Neutrophils Percent Auto 49.8 % (50-75); Platelet Count 372 X10^3/uL (150-400); Red Blood Cell Count 4.43 X10^6/uL (4.0-5.2); Red Cell Distribution Width 16.1 % (11.6-14.8); White Blood Cell Count 5.4 X10^3/uL (4.5-11.0)
[2022-02-08 17:37] LABS: Alanine Aminotransferase 22 IU/L (<35); Albumin 4.3 g/dL (3.5-5.0); Albumin Globulin Ratio 1.4 (1.0-2.8); Alkaline Phosphatase 72 U/L (38-126); Aspartate Aminotransferase 33 IU/L (14-36); BUN Creatinine Ratio 14.7 (6-22); Bilirubin Total 0.2 mg/dL (0.2-1.3); Blood Urea Nitrogen 15 mg/dL (7-17); Calcium 9.8 mg/dL (8.4-10.2); Carbon Dioxide 27 mmol/L (22-32); Chloride 106 mmol/L (98-107); Estimated Glomerular Filt Rate 53.9 mL/min (>60); Glucose 104 mg/dL (80-110); HEMOLYSIS < 15 (0-50); Potassium 4.7 mmol/L (3.4-5.1); Sodium 139 mmol/L (137-145); Total Protein 7.3 g/dL (6.3-8.2)
== END ==
PROVIDERS: PCP Nurse Practitioner; Referring Provider Internal Medicine Medical Oncology; Visit Provider Internal Medicine Medical Oncology
DX: C50.919 Malignant neoplasm of unspecified site of unspecified female breast (principal)
CPT/HCPCS: 36415; 80053; 85025

== ENCOUNTER 2022-09-27 20:47 | Emergency (ER) | payer MEDICARE, OTHER, SELFPAY ==
[2022-09-27 20:54] VITALS: BP 145/95; PULSE 64; RESP 20; TEMP 36.1; O2SAT 100
--- NOTE | 2022-09-27 21:15 | DI.US.S_ITS ---
PROCEDURE: US ABDOMEN LIMITED INDICATIONS: RUQ PAIN TECHNIQUE: Real-time focused scanning was performed of the abdomen, with image documentation. COMPARISON: None. FINDINGS: The liver demonstrates normal echotexture without discrete mass identified. Gallbladder demonstrates no stones, wall thickening, or pericholecystic fluid. No intra or extrahepatic biliary ductal dilatation. Visualized pancreas appears unremarkable sonographically. IMPRESSION: 1. No evidence of cholelithiasis or cholecystitis. Dictated by: Nitesh Perez M.D. on 09/27/2022 at 23:26 Approved by: Nitesh Perez M.D. on 09/27/2022 at 23:27
[2022-09-27 21:39] LABS: Add Manual Diff / Slide Review NO; Basophils Absolute Auto 100 /uL (0-100); Basophils Percent Auto 0.6 % (0-2); Eosinophils Absolute Auto 0 /uL (0-450); Eosinophils Percent Auto 0.2 % (2-4); Hematocrit 28.8 % (36-46); Hemoglobin 9.3 g/dL (12.0-16.0); Lymphocytes Absolute Auto 700 /uL (1100-4500); Lymphocytes Percent Auto 6.6 % (25-40); Mean Corpuscular HGB Conc 32.4 % (30-36); Mean Corpuscular Hemoglobin 23.9 PG (26-34); Mean Corpuscular Volume 73.9 fL (80-100); Monocytes Absolute Auto 400 /uL (0-900); Neutrophils Absolute Auto 9600 /uL (1500-7000); Neutrophils Percent Auto 88.6 % (50-75); Platelet Count 390 X10^3/uL (150-400); Red Blood Cell Count 3.91 X10^6/uL (4.0-5.2); Red Cell Distribution Width 18.2 % (11.6-14.8); White Blood Cell Count 10.9 X10^3/uL (4.5-11.0)
[2022-09-27 21:44] LABS: Creatine Kinase 45 U/L (30-135)
[2022-09-27 21:46] LABS: Alanine Aminotransferase 18 IU/L (<35); Albumin 3.6 g/dL (3.5-5.0); Albumin Globulin Ratio 1.3 (1.0-2.8); Alkaline Phosphatase 88 U/L (38-126); Aspartate Aminotransferase 21 IU/L (14-36); BUN Creatinine Ratio 18.5 (6-22); Bilirubin Total 0.3 mg/dL (0.2-1.3); Blood Urea Nitrogen 12 mg/dL (7-17); Calcium 8.5 mg/dL (8.4-10.2); Carbon Dioxide 20 mmol/L (22-32); Chloride 104 mmol/L (98-107); Estimated Glomerular Filt Rate > 60 mL/min (>60); Globulin 2.8 g/dL (1.7-4.1); Glucose 159 mg/dL (80-110); HEMOLYSIS < 15 (0-50); Lipase 448 U/L (23-300); Potassium 3.4 mmol/L (3.4-5.1); Sodium 132 mmol/L (137-145); Total Protein 6.4 g/dL (6.3-8.2)
[2022-09-27 21:57] LABS: Troponin I < 0.012 ng/mL (0.01-0.034)
[2022-09-27] MEDS: HYDROMORPHONE 0.5 MG INJ IV (22:22)
--- NOTE | 2022-09-27 22:22 | ED.ABDPAIN ---
HPI - Abdominal Pain General Chief Complaint: Abdominal Pain Stated Complaint: Upper gastric pain Time Seen by Provider: 09/27/22 21:14 Source: patient Mode of arrival: Ambulatory History of Present Illness HPI narrative: Patient is a 67-year-old female history of gastric bypass, breast cancer on chemotherapy bimonthly and radiation presenting today with sudden onset right upper quadrant pain. It is radiating up into her chest. She feels short of breath. No fever chills. No nausea or vomiting. She previously had leak from her gastric bypass surgery. She is followed up at [facility]. She stopped her radiation about September 01. She has severe itching she has had itching ongoing for a while she takes hydroxyzine at home. Does not seem to help. She says it hurts to breathe it is really localized in her right upper quadrant Related Data Home Medications Medication Instructions Recorded Confirmed cetirizine 10 mg capsule (All Day 10 mg PO DAILY PRN 09/16/22 09/16/22 Allergy (cetirizine)) diphenoxylate-atropine 2.5 1 tab PO Q6-8H PRN 09/16/22 09/16/22 mg-0.025 mg tablet fexofenadine 180 mg tablet 180 mg PO DAILY 09/16/22 09/16/22 (Evelia Allergy) gabapentin 100 mg capsule 100 mg PO BID 09/16/22 09/16/22 ondansetron HCl 8 mg tablet 8 mg PO Q8H 09/16/22 09/16/22 Previous Rx's Medication Instructions Recorded alprazolam 0.25 mg tablet 0.25 mg PO TID #90 tabs 09/16/22 hydroxyzine pamoate 25 mg capsule 25 mg PO TID #180 caps 09/16/22 venlafaxine 37.5 mg 37.5 mg PO BEDTIME #90 tabs 09/16/22 tablet,extended release 24 hr vitamin B comp and C no.3 15 mg-10 1 cap PO BID #180 caps 09/16/22 mg-50 mg-5 mg-300 mg capsule (B Complex Plus Vitamin C) oxycodone 5 mg tablet 5 mg PO Q4H PRN pain #20 tabs 09/28/22 Allergies Allergy/AdvReac Type Severity Reaction Status Date / Time Sulfa (Sulfonamide Allergy Unknown Verified 01/05/22 10:45 Antibiotics) [SULFA (SULFONAMIDE ANTIBIOTICS)] Review of Systems Review of Systems Narrative: GENERAL: Denies chills, fatigue, malaise, fever, sweats, travel HEENT: Denies sinus pain, ear pain, sore throat, difficulty swallowing, neck pain RESPIRATORY: Denies dyspnea, cough, wheezing, hemoptysis, sputum. CARDIOVASCULAR: Denies chest pain, palpitations, orthopnea, edema GASTROINTESTINAL: See HPI : Denies dysuria, frequency, incontinence, hematuria, urinary retention, flank pain. MUSCULOSKELETAL: Denies weakness, joint pain, or bony pain SKIN: No rash, no erythema, no pruritus NEUROLOGIC: Denies weakness, dizziness, headache, numbness, change in speech, confusion PSYCHIATRIC: No concerning psychosocial issues. 12 point review of systems is negative except for those stated above and HPI Patient History Medical History Anxiety Ductal carcinoma of right breast HSV (herpes simplex virus) infection Insomnia Social History Smoking Status: Never smoker Smoking Status: Never smoker alcohol intake frequency: 0-2 drinks per day Alcohol type: hard liquor Substance Use Type: does not use Exam Initial Vital Signs Initial Vital Signs: Vital Signs Temperature 97 F L 09/27/22 20:54 Pulse Rate 64 09/27/22 20:54 Respiratory Rate 20 09/27/22 20:54 Blood Pressure 145/95 H 09/27/22 20:54 Pulse Oximetry 100 09/27/22 20:54 Oxygen Delivery Method 09/27/22 20:54 GENERAL: Alert 67-year-old female appears uncomfortable and in no acute distress. HEENT: Head atraumatic,EOMI, pupils reactive, face symmetric, moist mucous membranes CARDIOVASCULAR: Regular rate and rhythm without murmurs, rubs or gallops. RESPIRATORY: Breath sounds equal bilaterally, no wheezes rales or rhonchi. ABDOMEN: Soft, tender right upper quadrant positive Farris sign positive epigastric pain : No CVA tenderness EXTREMITIES: Normal range of motion, no clubbing or edema. Neurovascularly intact NEUROLOGICAL: Alert and oriented x4.Normal gait and speech. SKIN: Warm, dry, no laceration, no petechiae, no rashes or lesions. Course Orders Ordered: ED Orders 09/27/22 21:13 EKG-12 Lead Stat 09/27/22 21:15 US abdomen limited Stat 09/27/22 21:26 Complete Blood Count AUTO DIFF Stat Comprehensive Metabolic Panel Stat Lactate (Lactic Acid) Stat Lipase Stat Troponin & CK Cardiac Panel Stat 09/27/22 22:43 CT chest abd pel w con Stat Discontinued Medications Heparin Sodium (Porcine) (Heparin 500 Unit/5 Ml Port Flush) 500 unit IV PRN PRN PRN Reason: Flush Hydromorphone HCl (Hydromorphone 0.5 Mg Inj) 0.5 mg IV NOW ONE Stop: 09/27/22 22:19 Last Admin: 09/27/22 22:22 Dose: 0.5 mg Documented By: MANDA Hydromorphone HCl (Hydromorphone 1 Mg Inj) 1 mg IV NOW ONE Stop: 09/27/22 22:44 Last Admin: 09/27/22 23:01 Dose: 1 mg Documented By: MANDA Hydromorphone HCl (Hydromorphone 1 Mg Inj) 1 mg IV NOW ONE Stop: 09/28/22 01:53 Last Admin: 09/28/22 02:01 Dose: 1 mg Documented By: MANDA Oxycodone/Acetaminophen (Oxycodone/Apap 5/325 Prepack) 1 bottle MISC SEEINSTR ONE Stop: 09/28/22 02:17 Last Admin: 09/28/22 02:42 Dose: 1 bottle Documented By: MANDA Vital Signs Vital signs: Vital Signs - 8 hr 09/27/22 23:24 09/28/22 02:53 Pulse Rate 71 75 Respiratory Rate 18 16 Blood Pressure 141/67 H 132/65 Pulse Oximetry 98 97 Oxygen Delivery Method Room Air Room Air MDM - Abdominal Pain Lab Data Result diagrams: 09/27/22 21:26 09/27/22 21:26 Labs: Lab Results 09/27/22 09/27/22 09/27/22 Range/Units 21:26 21:26 21:26 WBC 10.9 (4.5-11.0) X10^3/uL RBC 3.91 L (4.0-5.2) X10^6/uL Hgb 9.3 L (12.0-16.0) g/dL Hct 28.8 L (36-46) % MCV 73.9 L (80-100) fL MCH 23.9 L (26-34) PG MCHC 32.4 (30-36) % RDW 18.2 H (11.6-14.8) % Plt Count 390 (150-400) X10^3/uL Neut % (Auto) 88.6 H (50-75) % Lymph % (Auto) 6.6 L (25-40) % Hendricks % (Auto) 4.0 (3-14) % Eos % (Auto) 0.2 L (2-4) % Baso % (Auto) 0.6 (0-2) % Neut # (Auto) 9600 H (3441-4555) /uL Lymph # (Auto) 700 L (2150-3384) /uL Hendricks # (Auto) 400 (0-900) /uL Eos # (Auto) 0 (0-450) /uL Baso # (Auto) 100 (0-100) /uL Sodium 132 L (137-145) mmol/L Potassium 3.4 (3.4-5.1) mmol/L Chloride 104 (98-107) mmol/L Carbon Dioxide 20 L (22-32) mmol/L BUN 12 (7-17) mg/dL Creatinine 0.65 (0.52-1.04) mg/dL Estimated GFR > 60 (>60) mL/min BUN/Creatinine Ratio 18.5 (6-22) Glucose 159 H (80-110) mg/dL Lactate (0.7-2.1) mmol/L Calcium 8.5 (8.4-10.2) mg/dL Total Bilirubin 0.3 (0.2-1.3) mg/dL AST 21 (14-36) IU/L ALT 18 (<35) IU/L Alkaline Phosphatase 88 (38-126) U/L Total Creatine Kinase 45 (30-135) U/L CK-MB (CK-2) TNP CK-MB (CK-2) Rel Index TNP Troponin I < 0.012 (0.01-0.034) ng/mL Total Protein 6.4 (6.3-8.2) g/dL Albumin 3.6 (3.5-5.0) g/dL Globulin 2.8 (1.7-4.1) g/dL Albumin/Globulin Ratio 1.3 (1.0-2.8) Lipase 448 H (23-300) U/L 09/27/22 Range/Units 21:26 WBC (4.5-11.0) X10^3/uL RBC (4.0-5.2) X10^6/uL Hgb (12.0-16.0) g/dL Hct (36-46) % MCV (80-100) fL MCH (26-34) PG MCHC (30-36) % RDW (11.6-14.8) % Plt Count (150-400) X10^3/uL Neut % (Auto) (50-75) % Lymph % (Auto) (25-40) % Hendricks % (Auto) (3-14) % Eos % (Auto) (2-4) % Baso % (Auto) (0-2) % Neut # (Auto) (9515-0188) /uL Lymph # (Auto) (7249-7430) /uL Hendricks # (Auto) (0-900) /uL Eos # (Auto) (0-450) /uL Baso # (Auto) (0-100) /uL Sodium (137-145) mmol/L Potassium (3.4-5.1) mmol/L Chloride (98-107) mmol/L Carbon Dioxide (22-32) mmol/L BUN (7-17) mg/dL Creatinine (0.52-1.04) mg/dL Estimated GFR (>60) mL/min BUN/Creatinine Ratio (6-22) Glucose (80-110) mg/dL Lactate 1.2 (0.7-2.1) mmol/L Calcium (8.4-10.2) mg/dL Total Bilirubin (0.2-1.3) mg/dL AST (14-36) IU/L ALT (<35) IU/L Alkaline Phosphatase (38-126) U/L Total Creatine Kinase (30-135) U/L CK-MB (CK-2) CK-MB (CK-2) Rel Index Troponin I (0.01-0.034) ng/mL Total Protein (6.3-8.2) g/dL Albumin (3.5-5.0) g/dL Globulin (1.7-4.1) g/dL Albumin/Globulin Ratio (1.0-2.8) Lipase (23-300) U/L Point of care testing: Urine Dip Bedside Urine Glucose Negative Bedside Urine Bilirubin - Negative Bedside Urine Ketone - Negative Bedside Urine Occult Blood - Negative Bedside Urine Protein - Negative Bedside Urine Urobilinogen - Negative Bedside Urine Nitrite - Negative Bedside Urine Leukocytes - Negative Esterase Imaging Data CT scan - abdomen/pelvis: Radiologist's Impression: nt: Gina Kenney MR#: [id number] : 1955 Acct:[id number] Age/Sex: 67 / F Date of Service: 09/27/22 Loc: ED Accession Number: [id number] ?? Procedure: CT chest abd pel w con Ordering Provider: Palmira Leonardo D.O. PROCEDURE:? CT CHEST ABD PEL W CON ? INDICATIONS:? ruq pain hx gastric bypass ? TECHNIQUE:? After the administration of intravenous contrast, axial sections acquired from the supraclavicular neck to the pubic symphysis.? Coronal and sagittal reformats were performed.? For radiation dose reduction, the following was used:? automated exposure control, adjustment of mA and/or kV according to patient size.? ? COMPARISON: ? Outside Film, CT, CT CHEST ABDOMEN PELVIS WITH CONTRAST, 01/21/2022, 13:43. ? FINDINGS:? Image quality:? Excellent.? ? CHEST:? Lower Neck: No lymphadenopathy by size criteria. Thyroid:? Visualized thyroid demonstrates no discrete nodules. Axillae: No lymphadenopathy by size criteria.? There are surgical clips within the right axilla. Chest Wall:? Right breast is surgically absent.? There is a left internal jugular Port-A-Cath with the tip extending into the right atrium. Bones: Visualized osseous structures demonstrate no suspicious lesions. ? Lungs and Airways:? No acute consolidation.? There is dependent atelectasis bilaterally.? The trachea and central airways are patent. Pleura: No pneumothorax or pleural effusions.? ? Heart: Heart size is normal.? No pericardial effusion. Thoracic Vessels: The aorta and pulmonary arteries are normal in size.? Mediastinum and Sylvia: No lymphadenopathy by size criteria. Esophagus: No wall thickening.? There is a small hiatal hernia. ? Lung bases:? Unremarkable.? ? Heart:? Heart is normal in size. ? ? ABDOMEN: Liver:? No discrete mass lesion. Gallbladder:? Within normal limits without calcified gallstones.? ? Biliary ducts:? No biliary ductal dilatation.? ? Pancreas:? Unremarkable.? ? Spleen:? Normal in size.? ? Adrenal Glands:? No adrenal nodules.? ? Kidneys and Ureters:? No hydronephrosis.? There is an exophytic renal cyst. ? ? Stomach and Bowel:? Postsurgical changes are demonstrated status post Elham-en-Y gastric bypass.? Stomach, small bowel loops, and colon are normal in caliber and wall thickness.? The appendix is normal in appearance. Peritoneum:? There is a small to moderate amount of intraperitoneal free fluid within the bilateral upper and lower quadrants.? No free air.? ? There is indistinct fat stranding and ground-glass opacity within the omentum anteriorly. ? Ventral Wall: ? No hernia.? Abdominal Nodes:? No retroperitoneal or mesenteric adenopathy by size criteria.? Vessels:? Aorta and inferior vena cava are normal in size.? ? PELVIS: Pelvic Organs:? Unremarkable.? ? Bladder:? Unremarkable.? ? Pelvic Nodes: No enlarged lymph nodes.? Miscellaneous: No inguinal hernias are seen. ? ? ? Bones:? Visualized osseous structures demonstrate no suspicious focal lesions. ? IMPRESSION:? ? 1.? Small to moderate of ascites is nonspecific but new compared to the prior study. ? 2.? New indistinct fat stranding within the omentum suspicious for omental caking. ? 3.? The constellation of findings are suggestive of peritoneal carcinomatosis. ? 4. Postsurgical changes status post gastric bypass without evidence of obstruction.? Dictated by: Nitesh Perez M.D. on 09/27/2022 at 23:46 ? ? ECG Data Interpretation: Normal sinus rhythm rate 60 p.r. interval 128 QRS [address] changes no T-wave inversions similar to previous EKG MDM Narrative Medical decision making narrative: The patient is found to have new ascites which may be causing her pain her gallbladder shows no sign cholelithiasis or cholecystitis. Blood work is overall reassuring. CT also shows probable peritoneal carcinomatosis with omental caking. Her pain is better controlled with Dilaudid. She is afebrile. At this time she is given report is and disc recommended close follow-up with her oncology team. We did make a call into the for a [facility] however we did not hear back from them. At this time no need for hospitalization. I suspect that the pain she is experiencing probably from the ascites and irritation. It even radiating up to her shoulder. Ultrasound and CT do not show anything specific in her gallbladder. Discharge Plan Departure Patient Disposition: Home Clinical Impression: Peritoneal carcinomatosis Instructions: DI for Breast Cancer Activity Restrictions/Additional Instructions: *You have been diagnosed with your scan reports that you have peritoneal carcinomatosis and ascites *What to do: At this time please call Basilio Rodriguez 1st thing in the morning your scans have been sent and you have been given copies of the report and disc. Please stay hydrated *Continue to take medications as directed Oxycodone 5 mg every 4-6 hours if needed for severe pain Tylenol 1000 mg every 6 hours if needed for [id number] pain *Follow up with your primary care provider in 2-3 days or call [phone] *Return to ER if you should have increasing pain shortness of breath, persistent nausea vomiting or any new, worsening or concerning symptoms CONTROLLED SUBSTANCE DISCHARGE (Narcotoic/benzodiazepine/Flexeril/Phenergan) 1. You have been prescribed narcotic medications, it does have acetaminophen/Tylenol/paracetamol in it, DO NOT TAKE MORE THAN 4,00mg in 24 hours of Tylenol. TRAMADOL DOES NOT CONTAIN TYLENOL 2. Please understand that we cannot provide further refills of narcotics, benzodiazepines or controlled substances through the ED and her pain management will need to be through your provider. 3. While on these medications you cannot drive or operate heavy machinery. 4. You cannot sign legal documents or perform any duties such as this. 5. As long as you're taking opiate pain medications he should also be taking a stool softener such as Colace, Dulcolax, MiraLAX or prune juice, to help avoid constipation. Prescriptions: New oxycodone 5 mg tablet 5 mg PO Q4H PRN (Reason: pain) Qty: 20 0RF No Action hydroxyzine pamoate 25 mg capsule 25 mg PO TID Qty: 180 1RF Rx Instructions: Take 1 capsule up to 3x/day gabapentin 100 mg capsule 100 mg PO BID Rx Instructions: Take 1 cap during the day and 2 caps at night diphenoxylate-atropine 2.5-0.025 mg tablet 1 tab PO Q6-8H PRN ondansetron HCl 8 mg tablet 8 mg PO Q8H fexofenadine [Evelia Allergy] 180 mg tablet 180 mg PO DAILY All Day Allergy (cetirizine) 10 mg capsule 10 mg PO DAILY PRN B Complex Plus Vitamin C [id number] mg capsule 1 cap PO BID Qty: 180 3RF Rx Instructions: give with food (meal/snack) twice daily for neuropathies venlafaxine 37.5 mg tablet extended release 24hr 37.5 mg PO BEDTIME Qty: 90 1RF alprazolam 0.25 mg tablet 0.25 mg PO TID Qty: 90 3RF Rx Instructions: Take 1/2 to 1 tab up to 3x/day as needed for panic attacks. Referrals: Mila Chou ARNP [Primary Care Provider] - Visit Report Forms: Patient Portal/API
--- NOTE | 2022-09-27 22:43 | DI.CT.S_ITS ---
PROCEDURE: CT CHEST ABD PEL W CON INDICATIONS: ruq pain hx gastric bypass TECHNIQUE: After the administration of intravenous contrast, axial sections acquired from the supraclavicular neck to the pubic symphysis. Coronal and sagittal reformats were performed. For radiation dose reduction, the following was used: automated exposure control, adjustment of mA and/or kV according to patient size. COMPARISON: Outside Film, CT, CT CHEST ABDOMEN PELVIS WITH CONTRAST, 01/21/2022, 13:43. FINDINGS: Image quality: Excellent. CHEST: Lower Neck: No lymphadenopathy by size criteria. Thyroid: Visualized thyroid demonstrates no discrete nodules. Axillae: No lymphadenopathy by size criteria. There are surgical clips within the right axilla. Chest Wall: Right breast is surgically absent. There is a left internal jugular Port-A-Cath with the tip extending into the right atrium. Bones: Visualized osseous structures demonstrate no suspicious lesions. Lungs and Airways: No acute consolidation. There is dependent atelectasis bilaterally. The trachea and central airways are patent. Pleura: No pneumothorax or pleural effusions. Heart: Heart size is normal. No pericardial effusion. Thoracic Vessels: The aorta and pulmonary arteries are normal in size. Mediastinum and Sylvia: No lymphadenopathy by size criteria. Esophagus: No wall thickening. There is a small hiatal hernia. Lung bases: Unremarkable. Heart: Heart is normal in size. ABDOMEN: Liver: No discrete mass lesion. Gallbladder: Within normal limits without calcified gallstones. Biliary ducts: No biliary ductal dilatation. Pancreas: Unremarkable. Spleen: Normal in size. Adrenal Glands: No adrenal nodules. Kidneys and Ureters: No hydronephrosis. There is an exophytic renal cyst. Stomach and Bowel: Postsurgical changes are demonstrated status post Elham-en-Y gastric bypass. Stomach, small bowel loops, and colon are normal in caliber and wall thickness. The appendix is normal in appearance. Peritoneum: There is a small to moderate amount of intraperitoneal free fluid within the bilateral upper and lower quadrants. No free air. There is indistinct fat stranding and ground-glass opacity within the omentum anteriorly. Ventral Wall: No hernia. Abdominal Nodes: No retroperitoneal or mesenteric adenopathy by size criteria. Vessels: Aorta and inferior vena cava are normal in size. PELVIS: Pelvic Organs: Unremarkable. Bladder: Unremarkable. Pelvic Nodes: No enlarged lymph nodes. Miscellaneous: No inguinal hernias are seen. Bones: Visualized osseous structures demonstrate no suspicious focal lesions. IMPRESSION: 1. Small to moderate of ascites is nonspecific but new compared to the prior study. 2. New indistinct fat stranding within the omentum suspicious for omental caking. 3. The constellation of findings are suggestive of peritoneal carcinomatosis. 4. Postsurgical changes status post gastric bypass without evidence of obstruction. Dictated by: Nitesh Perez M.D. on 09/27/2022 at 23:46 Approved by: Nitesh Perez M.D. on 09/27/2022 at 23:56
[2022-09-27] MEDS: HYDROMORPHONE 1 MG INJ IV (23:01)
[2022-09-27 23:24] VITALS: BP 141/67; PULSE 71; RESP 18; O2SAT 98
[2022-09-27 23:26] LABS: Lactate (Lactic Acid) 1.2 mmol/L (0.7-2.1)
[2022-09-28] MEDS: HYDROMORPHONE 1 MG INJ IV (02:01)
[2022-09-28] MEDS: OXYCODONE/APAP 5/325 PREPACK 1 BOTTLE MISC (02:42)
[2022-09-28 02:53] VITALS: BP 132/65; PULSE 75; RESP 16; O2SAT 97
== END 2022-09-28 03:04 | disposition home or self-care (01) ==
PROVIDERS: Emergency Provider Emergency Medicine; PCP Nurse Practitioner
DX: C78.6 Secondary malignant neoplasm of retroperitoneum and peritoneum (principal); R06.02 Shortness of breath; Z98.84 Bariatric surgery status
CPT/HCPCS: 71260; 74177; 76705; 80053; 81003; 82550; 83605; 83690; 84484; 85025; 93005; 96374; 96376; 99284; J1170; Q9967

== ENCOUNTER 2022-09-28 12:35 | Inpatient (IN) | payer MEDICARE, OTHER, SELFPAY ==
[2022-09-28] VITALS (21 sets, daily range): BP systolic 101–148; BP diastolic 53–67; PULSE 64–90; RESP 12–95; TEMP 36.6–37.4; O2SAT 93–100; BMI 25.0
[2022-09-28] MEDS: OXYCODONE IR 5 MG TABLET PO (15:17)
[2022-09-28 17:42] LABS: Add Manual Diff / Slide Review NO; Basophils Absolute Auto 0 /uL (0-100); Basophils Percent Auto 0.1 % (0-2); Eosinophils Absolute Auto 0 /uL (0-450); Hematocrit 30.5 % (36-46); Hemoglobin 9.4 g/dL (12.0-16.0); Lymphocytes Absolute Auto 600 /uL (1100-4500); Lymphocytes Percent Auto 4.7 % (25-40); Mean Corpuscular Volume 74.2 fL (80-100); Monocytes Absolute Auto 500 /uL (0-900); Monocytes Percent Auto 3.8 % (3-14); Neutrophils Absolute Auto 11200 /uL (1500-7000); Neutrophils Percent Auto 91.4 % (50-75); Platelet Count 418 X10^3/uL (150-400); Red Blood Cell Count 4.11 X10^6/uL (4.0-5.2); Red Cell Distribution Width 18.9 % (11.6-14.8); White Blood Cell Count 12.2 X10^3/uL (4.5-11.0)
--- NOTE | 2022-09-28 17:43 | ED.ABDPAIN ---
HPI - Abdominal Pain <Mikhail Marques MD - Last Filed: 09/28/22 18:04> General Chief Complaint: Abdominal Pain Stated Complaint: ABD and Chest pain Upper gastric Time Seen by Provider: 09/28/22 17:24 Mode of arrival: Family Vehicle History of Present Illness HPI narrative: Gina is a 67-year-old woman with recent completed therapy for breast cancer with mastectomy, radiation and chemotherapy. She is now on maintenance phase of that treatment. She is been doing very well and then 48 hours ago started to develop upper abdominal pain with severe nausea but no vomiting and no fever. She has a remote history of gastric bypass surgery with a complication a few weeks after the initial surgery. But this is all over 10 years ago. She is not had any significant abdominal problems since then. She has been taking naproxen at a fairly good dose recently and consistently. She is had no injury to explain this. The pain is quite severe. She came to the ER today because she was unable to get her pain medication prescribed from the pharmacy and she came here simply to get some pain medication so that she could be seen by her cancer care team in [place]. Because of the busyness of the ER I did not see her for the 1st time until she had been here for nearly 5 hours. Related Data Home Medications Medication Instructions Recorded Confirmed cetirizine 10 mg capsule (All Day 10 mg PO DAILY PRN Allergy Symptoms 09/16/22 09/28/22 Allergy (cetirizine)) diphenoxylate-atropine 2.5 1 tab PO Q6-8H PRN 09/16/22 09/16/22 mg-0.025 mg tablet fexofenadine 180 mg tablet 180 mg PO DAILY 09/16/22 09/16/22 (Evelia Allergy) gabapentin 100 mg capsule 100 mg PO QAM 09/16/22 09/28/22 ondansetron HCl 8 mg tablet 8 mg PO Q8H PRN Nausea 09/16/22 09/29/22 alprazolam 0.25 mg tablet 0.25 mg PO TID PRN Anxiety 09/28/22 09/29/22 gabapentin 100 mg tablet 200 mg PO BEDTIME 09/28/22 09/28/22 hydroxyzine pamoate 25 mg capsule 25 mg PO BID 09/29/22 09/29/22 Previous Rx's Medication Instructions Recorded vitamin B comp and C no.3 15 mg-10 1 cap PO BID #180 caps 09/16/22 mg-50 mg-5 mg-300 mg capsule (B Complex Plus Vitamin C) Allergies Allergy/AdvReac Type Severity Reaction Status Date / Time Sulfa (Sulfonamide Allergy Unknown Verified 09/28/22 12:47 Antibiotics) [SULFA (SULFONAMIDE ANTIBIOTICS)] Review of Systems <Mikhail Marques MD - Last Filed: 09/28/22 18:04> Review of Systems Narrative: Complete review of systems is negative other than as noted above. Patient History <Mikhail Marques MD - Last Filed: 09/28/22 18:04> Medical History Anxiety Ductal carcinoma of right breast HSV (herpes simplex virus) infection Insomnia Social History household members: spouse Smoking Status: Never smoker alcohol intake: former Smoking Status: Never smoker alcohol intake frequency: 0-2 drinks per day Alcohol type: hard liquor Substance Use Type: does not use Exam <Mikhail Marques MD - Last Filed: 09/28/22 18:04> Narrative Exam Narrative: GENERAL: Alert, mild distress able to speak calmly HEAD: Atraumatic. Normocephalic. EYES: Sclera are clear without icterus. Extraocular movements are full. ENT: No rhinorrhea NECK: Supple. Full range of motion. CARDIOVASCULAR: Normal rate and rhythm without murmur gallop or rub. RESPIRATORY: Clear to auscultation. Breath sounds equal bilaterally. No wheezes, rales, or rhonchi. GASTROINTESTINAL: Abdomen is flat with decreased bowel sounds. Extremely tender throughout with guarding and peritoneal signs. EXTREMITIES: No edema, full range of motion. No obvious trauma. BACK: Normal inspection, no CVA tenderness. NEURO: Nonfocal examination, normal speech, SKIN: No rash or erythema of visible areas PSYCH: Normally oriented. Normal range of affect. Appropriate behavior Initial Vital Signs Initial Vital Signs: Vital Signs Temperature 97.8 F 09/28/22 12:40 Pulse Rate 75 09/28/22 12:40 Respiratory Rate 20 09/28/22 12:40 Blood Pressure 113/53 L 09/28/22 12:40 Pulse Oximetry 98 09/28/22 12:40 Oxygen Delivery Method 09/28/22 12:40 <Palmira Leonardo DO - Last Filed: 09/29/22 03:57> Initial Vital Signs Initial Vital Signs: Vital Signs Temperature 97.8 F 09/28/22 12:40 Pulse Rate 75 09/28/22 12:40 Respiratory Rate 20 09/28/22 12:40 Blood Pressure 113/53 L 09/28/22 12:40 Pulse Oximetry 98 09/28/22 12:40 Oxygen Delivery Method 09/28/22 12:40 Course <Mikhail Marques MD - Last Filed: 09/28/22 18:04> Course Course Narrative: I saw the patient just now for the 1st time at approximately 5:30 p.m.. I ordered repeat laboratory data and more aggressive analgesics. At change of shift care will be transferred to Dr. Marin Orders Ordered: ED Orders 09/28/22 19:30 Blood Culture Stat Hydrocodone Bitart/Acetaminophen (Hydrocodone/Acet 5/325 Tablet) 1 tab PO Q4H PRN PRN Reason: Pain, Moderate (4-6) Hydromorphone HCl (Hydromorphone 0.5 Mg Inj) 0.5 mg IV Q4H PRN PRN Reason: Pain, Moderate (4-6) Hydromorphone HCl (Hydromorphone 1 Mg Inj) 1 mg IV Q4H PRN PRN Reason: Pain, Severe (7-10) Last Admin: 09/29/22 00:23 Dose: 1 mg Documented By: Lactated Ringer's (Lactated Ringers) 1,000 mls @ 100 mls/hr IV CONT [facility] Last Admin: 09/28/22 23:19 Dose: 100 mls/hr Documented By: Ondansetron HCl (Ondansetron 4 Mg/2 Ml Inj) 4 mg IV Q8HR PRN PRN Reason: Nausea And Vomiting Discontinued Medications Bupivacaine Liposome (Bupivacaine Liposome 266 Mg/20 Ml Vial) 266 mg INJ NOW ONE Stop: 09/28/22 22:27 Last Admin: 09/28/22 22:26 Dose: 133 mg Documented By: (2) Fentanyl (Fentanyl 100 Mcg/2 Ml Inj) 70 mcg 1 mcg/kg (70 mcg) IV Q1H [facility] Last Admin: 09/28/22 19:26 Dose: Not Given Documented By: Admin: 09/28/22 17:45 Dose: 70 mcg Documented By: EUGENIA Fentanyl (Fentanyl 100 Mcg/2 Ml Inj) 0 mcg IV Q5M PRN PRN Reason: Pain, Moderate (4-6) Hydromorphone HCl (Hydromorphone 1 Mg Inj) 1 mg IV NOW ONE Stop: 09/28/22 18:08 Last Admin: 09/28/22 19:07 Dose: 1 mg Documented By: ALICE Hydromorphone HCl (Hydromorphone 2 Mg Inj) 0 mg IV Q5M PRN PRN Reason: Pain, Moderate (4-6) Sodium Chloride (Normal Saline 0.9%) 1,000 mls @ 1,000 mls/hr IV BOLUS ONE Stop: 09/28/22 18:31 Last Infusion: 09/28/22 19:25 Dose: 0 mls/hr Documented By: Admin: 09/28/22 17:44 Dose: 1,000 mls/hr Documented By: EUGENIA Piperacillin Sod/Tazobactam (Sod 4.5 gm/ Sodium Chloride) 100 mls @ 25 mls/hr IV Q8H AYDIN Lactated Ringer's (Lactated Ringers) 1,000 mls @ 42 mls/hr IV CONT AYDIN Piperacillin Sod/Tazobactam (Sod 3.375 gm/ Sodium Chloride) 100 mls @ 25 mls/hr IV NOW ONE Stop: 09/28/22 21:25 Last Infusion: 09/28/22 20:45 Dose: 0 mls/hr Documented By: Admin: 09/28/22 20:30 Dose: 25 mls/hr Documented By: Lorazepam (Lorazepam 2 Mg/Ml Inj) 0.25 mg IV NOW PRN PRN Reason: Anxiety Naloxone HCl (Naloxone 0.4 Mg/Ml Vial) 0.2 mg IV Q2MIN PRN PRN Reason: Opiate Reversal Ondansetron HCl (Ondansetron 4 Mg/2 Ml Inj) 4 mg IV Q2HR PRN PRN Reason: Nausea And Vomiting Ondansetron HCl (Ondansetron 4 Mg/2 Ml Inj) 4 mg IV NOW PRN PRN Reason: Nausea And Vomiting Oxycodone HCl (Oxycodone Ir 5 Mg Tablet) 5 mg PO NOW ONE Stop: 09/28/22 15:11 Last Admin: 09/28/22 15:17 Dose: 5 mg Documented By: AKP Consultations Consultation #1: I spoke with Dr. Arita who is an oncologist in [place] who knows the patient well. She says that the CT scan suggesting the possibility of carcinomatosis from yesterday is likely inaccurate. She did review those images with her cancer team radiology colleague and though there is some degree of ascites or at least free fluid, carcinomatosis is not suspected based on those images. She felt that the patient's response to her cancer treatment was very impressive and good and the likelihood that she would have early recurrence with severe abdominal symptoms was extremely remote. Consultation #2: I placed a call to Dr. Grant for consultation but he is scrubbed into the case. I asked him to call when he is done with that case. Consultation #3: Spoke to Dr. Grant just now who agrees to come and see the patient. He requested a repeat CT scan with oral contrast. Vital Signs Vital signs: Vital Signs - 8 hr 09/28/22 12:40 09/28/22 13:51 09/28/22 14:00 Temperature 97.8 F Pulse Rate 75 67 66 Respiratory Rate 20 24 20 Blood Pressure 113/53 L 118/58 L 107/56 L Pulse Oximetry 98 100 97 Oxygen Delivery Method Room Air Room Air Room Air 09/28/22 14:30 09/28/22 15:00 09/28/22 15:30 Temperature Pulse Rate 64 72 67 Respiratory Rate 18 22 Blood Pressure 106/55 L 109/58 L 139/61 Pulse Oximetry 97 98 97 Oxygen Delivery Method Room Air Room Air Room Air 09/28/22 17:02 09/28/22 16:00 09/28/22 16:30 Temperature Pulse Rate 74 68 68 Respiratory Rate 12 22 Blood Pressure 127/59 L 122/58 L 129/61 Pulse Oximetry 99 96 96 Oxygen Delivery Method Room Air Room Air Room Air <Palmira Leonardo DO - Last Filed: 09/29/22 03:57> Orders Ordered: ED Orders 09/28/22 19:30 Blood Culture Stat Hydrocodone Bitart/Acetaminophen (Hydrocodone/Acet 5/325 Tablet) 1 tab PO Q4H PRN PRN Reason: Pain, Moderate (4-6) Hydromorphone HCl (Hydromorphone 0.5 Mg Inj) 0.5 mg IV Q4H PRN PRN Reason: Pain, Moderate (4-6) Hydromorphone HCl (Hydromorphone 1 Mg Inj) 1 mg IV Q4H PRN PRN Reason: Pain, Severe (7-10) Last Admin: 09/29/22 00:23 Dose: 1 mg Documented By: Lactated Ringer's (Lactated Ringers) 1,000 mls @ 100 mls/hr IV CONT [facility] Last Admin: 09/28/22 23:19 Dose: 100 mls/hr Documented By: Ondansetron HCl (Ondansetron 4 Mg/2 Ml Inj) 4 mg IV Q8HR PRN PRN Reason: Nausea And Vomiting Discontinued Medications Bupivacaine Liposome (Bupivacaine Liposome 266 Mg/20 Ml Vial) 266 mg INJ NOW ONE Stop: 09/28/22 22:27 Last Admin: 09/28/22 22:26 Dose: 133 mg Documented By: (2) Fentanyl (Fentanyl 100 Mcg/2 Ml Inj) 70 mcg 1 mcg/kg (70 mcg) IV Q1H [facility] Last Admin: 09/28/22 19:26 Dose: Not Given Documented By: Admin: 09/28/22 17:45 Dose: 70 mcg Documented By: EUGENIA Fentanyl (Fentanyl 100 Mcg/2 Ml Inj) 0 mcg IV Q5M PRN PRN Reason: Pain, Moderate (4-6) Hydromorphone HCl (Hydromorphone 1 Mg Inj) 1 mg IV NOW ONE Stop: 09/28/22 18:08 Last Admin: 09/28/22 19:07 Dose: 1 mg Documented By: ALICE Hydromorphone HCl (Hydromorphone 2 Mg Inj) 0 mg IV Q5M PRN PRN Reason: Pain, Moderate (4-6) Sodium Chloride (Normal Saline 0.9%) 1,000 mls @ 1,000 mls/hr IV BOLUS ONE Stop: 09/28/22 18:31 Last Infusion: 09/28/22 19:25 Dose: 0 mls/hr Documented By: Admin: 09/28/22 17:44 Dose: 1,000 mls/hr Documented By: EUGENIA Piperacillin Sod/Tazobactam (Sod 4.5 gm/ Sodium Chloride) 100 mls @ 25 mls/hr IV Q8H AYDIN Lactated Ringer's (Lactated Ringers) 1,000 mls @ 42 mls/hr IV CONT AYDIN Piperacillin Sod/Tazobactam (Sod 3.375 gm/ Sodium Chloride) 100 mls @ 25 mls/hr IV NOW ONE Stop: 09/28/22 21:25 Last Infusion: 09/28/22 20:45 Dose: 0 mls/hr Documented By: Admin: 09/28/22 20:30 Dose: 25 mls/hr Documented By: Lorazepam (Lorazepam 2 Mg/Ml Inj) 0.25 mg IV NOW PRN PRN Reason: Anxiety Naloxone HCl (Naloxone 0.4 Mg/Ml Vial) 0.2 mg IV Q2MIN PRN PRN Reason: Opiate Reversal Ondansetron HCl (Ondansetron 4 Mg/2 Ml Inj) 4 mg IV Q2HR PRN PRN Reason: Nausea And Vomiting Ondansetron HCl (Ondansetron 4 Mg/2 Ml Inj) 4 mg IV NOW PRN PRN Reason: Nausea And Vomiting Oxycodone HCl (Oxycodone Ir 5 Mg Tablet) 5 mg PO NOW ONE Stop: 09/28/22 15:11 Last Admin: 09/28/22 15:17 Dose: 5 mg Documented By: EUGENIA Vital Signs Vital signs: Vital Signs - 8 hr 09/28/22 12:40 09/28/22 13:51 09/28/22 14:00 Temperature 97.8 F Pulse Rate 75 67 66 Respiratory Rate 20 24 20 Blood Pressure 113/53 L 118/58 L 107/56 L Pulse Oximetry 98 100 97 Oxygen Delivery Method Room Air Room Air Room Air 09/28/22 14:30 09/28/22 15:00 09/28/22 15:30 Temperature Pulse Rate 64 72 67 Respiratory Rate 18 22 Blood Pressure 106/55 L 109/58 L 139/61 Pulse Oximetry 97 98 97 Oxygen Delivery Method Room Air Room Air Room Air 09/28/22 17:02 09/28/22 16:00 09/28/22 16:30 Temperature Pulse Rate 74 68 68 Respiratory Rate 12 22 Blood Pressure 127/59 L 122/58 L 129/61 Pulse Oximetry 99 96 96 Oxygen Delivery Method Room Air Room Air Room Air MDM - Abdominal Pain <Mikhail Marques MD - Last Filed: 09/28/22 18:04> Lab Data Result diagrams: 09/28/22 13:30 09/28/22 13:30 Labs: Lab Results 09/28/22 09/28/22 09/28/22 Range/Units 13:30 13:30 13:30 WBC 12.2 H (4.5-11.0) X10^3/uL RBC 4.11 (4.0-5.2) X10^6/uL Hgb 9.4 L (12.0-16.0) g/dL Hct 30.5 L (36-46) % MCV 74.2 L (80-100) fL MCH 23.0 L (26-34) PG MCHC 31.0 (30-36) % RDW 18.9 H (11.6-14.8) % Plt Count 418 H (150-400) X10^3/uL Neut % (Auto) 91.4 H (50-75) % Lymph % (Auto) 4.7 L (25-40) % Jay % (Auto) 3.8 (3-14) % Eos % (Auto) 0.0 L (2-4) % Baso % (Auto) 0.1 (0-2) % Neut # (Auto) 20543 H (0484-4183) /uL Lymph # (Auto) 600 L (8213-5943) /uL Jay # (Auto) 500 (0-900) /uL Eos # (Auto) 0 (0-450) /uL Baso # (Auto) 0 (0-100) /uL Sodium 132 L (137-145) mmol/L Potassium 4.0 (3.4-5.1) mmol/L Chloride 100 (98-107) mmol/L Carbon Dioxide 24 (22-32) mmol/L BUN 15 (7-17) mg/dL Creatinine 0.69 (0.52-1.04) mg/dL Estimated GFR > 60 (>60) mL/min BUN/Creatinine Ratio 21.7 (6-22) Glucose 163 H (80-110) mg/dL Lactate 1.1 (0.7-2.1) mmol/L Calcium 8.6 (8.4-10.2) mg/dL Total Bilirubin 0.6 (0.2-1.3) mg/dL AST 32 (14-36) IU/L ALT 18 (<35) IU/L Alkaline Phosphatase 75 (38-126) U/L Total Protein 6.3 (6.3-8.2) g/dL Albumin 3.4 L (3.5-5.0) g/dL Globulin 2.9 (1.7-4.1) g/dL Albumin/Globulin Ratio 1.2 (1.0-2.8) Lipase 598 H (23-300) U/L Urine Color Urine Appearance Urine pH (4.5-8.0) Ur Specific [place] (1.000-1.035) Urine Protein (Negative) Urine Glucose (UA) (Negative) g/dL Urine Ketones (NEGATIVE) Urine Occult Blood (Negative) Urine Nitrate (Negative) Urine Bilirubin (NEGATIVE) Urine Urobilinogen (0.2) E.U./dL Ur Leukocyte Esterase (NEGATIVE) Urine RBC (0-5/HPF) Urine WBC (0-5/HPF) Ur Squamous Epith Cells (0-5/HPF) Ur Transition Epith Cell (0-5/HPF) Urine Bacteria (None) Hyaline Casts (None) Urine Mucus (Negative) Ur Culture Indicated? SARS-CoV-2 (PCR) (Negative) 09/28/22 09/28/22 Range/Units 17:43 18:23 WBC (4.5-11.0) X10^3/uL RBC (4.0-5.2) X10^6/uL Hgb (12.0-16.0) g/dL Hct (36-46) % MCV (80-100) fL MCH (26-34) PG MCHC (30-36) % RDW (11.6-14.8) % Plt Count (150-400) X10^3/uL Neut % (Auto) (50-75) % Lymph % (Auto) (25-40) % Jay % (Auto) (3-14) % Eos % (Auto) (2-4) % Baso % (Auto) (0-2) % Neut # (Auto) (5244-0767) /uL Lymph # (Auto) (7544-5102) /uL Jay # (Auto) (0-900) /uL Eos # (Auto) (0-450) /uL Baso # (Auto) (0-100) /uL Sodium (137-145) mmol/L Potassium (3.4-5.1) mmol/L Chloride (98-107) mmol/L Carbon Dioxide (22-32) mmol/L BUN (7-17) mg/dL Creatinine (0.52-1.04) mg/dL Estimated GFR (>60) mL/min BUN/Creatinine Ratio (6-22) Glucose (80-110) mg/dL Lactate (0.7-2.1) mmol/L Calcium (8.4-10.2) mg/dL Total Bilirubin (0.2-1.3) mg/dL AST (14-36) IU/L ALT (<35) IU/L Alkaline Phosphatase (38-126) U/L Total Protein (6.3-8.2) g/dL Albumin (3.5-5.0) g/dL Globulin (1.7-4.1) g/dL Albumin/Globulin Ratio (1.0-2.8) Lipase (23-300) U/L Urine Color Dark yellow Urine Appearance Slightly cloudy Urine pH 5.0 (4.5-8.0) Ur Specific [place] >=1.030 H (1.000-1.035) Urine Protein 2+ H (Negative) Urine Glucose (UA) Trace H (Negative) g/dL Urine Ketones Trace H (NEGATIVE) Urine Occult Blood 1+ H (Negative) Urine Nitrate Negative (Negative) Urine Bilirubin Negative (NEGATIVE) Urine Urobilinogen 0.2 (0.2) E.U./dL Ur Leukocyte Esterase Negative (NEGATIVE) Urine RBC 0-1/hpf (0-5/HPF) Urine WBC 1-5/hpf (0-5/HPF) Ur Squamous Epith Cells 1-5 /hpf (0-5/HPF) Ur Transition Epith Cell 0-1/hpf (0-5/HPF) Urine Bacteria None seen (None) Hyaline Casts 1-5/lpf (None) Urine Mucus 1+ H (Negative) Ur Culture Indicated? Cult not indicated SARS-CoV-2 (PCR) Negative (Negative) <Palmira Leonardo, DO - Last Filed: 09/29/22 03:57> Lab Data Labs: Lab Results 09/28/22 09/28/22 09/28/22 Range/Units 13:30 13:30 13:30 WBC 12.2 H (4.5-11.0) X10^3/uL RBC 4.11 (4.0-5.2) X10^6/uL Hgb 9.4 L (12.0-16.0) g/dL Hct 30.5 L (36-46) % MCV 74.2 L (80-100) fL MCH 23.0 L (26-34) PG MCHC 31.0 (30-36) % RDW 18.9 H (11.6-14.8) % Plt Count 418 H (150-400) X10^3/uL Neut % (Auto) 91.4 H (50-75) % Lymph % (Auto) 4.7 L (25-40) % Jay % (Auto) 3.8 (3-14) % Eos % (Auto) 0.0 L (2-4) % Baso % (Auto) 0.1 (0-2) % Neut # (Auto) 74560 H (6540-0346) /uL Lymph # (Auto) 600 L (2178-6998) /uL Jay # (Auto) 500 (0-900) /uL Eos # (Auto) 0 (0-450) /uL Baso # (Auto) 0 (0-100) /uL Sodium 132 L (137-145) mmol/L Potassium 4.0 (3.4-5.1) mmol/L Chloride 100 (98-107) mmol/L Carbon Dioxide 24 (22-32) mmol/L BUN 15 (7-17) mg/dL Creatinine 0.69 (0.52-1.04) mg/dL Estimated GFR > 60 (>60) mL/min BUN/Creatinine Ratio 21.7 (6-22) Glucose 163 H (80-110) mg/dL Lactate 1.1 (0.7-2.1) mmol/L Calcium 8.6 (8.4-10.2) mg/dL Total Bilirubin 0.6 (0.2-1.3) mg/dL AST 32 (14-36) IU/L ALT 18 (<35) IU/L Alkaline Phosphatase 75 (38-126) U/L Total Protein 6.3 (6.3-8.2) g/dL Albumin 3.4 L (3.5-5.0) g/dL Globulin 2.9 (1.7-4.1) g/dL Albumin/Globulin Ratio 1.2 (1.0-2.8) Lipase 598 H (23-300) U/L Urine Color Urine Appearance Urine pH (4.5-8.0) Ur Specific [place] (1.000-1.035) Urine Protein (Negative) Urine Glucose (UA) (Negative) g/dL Urine Ketones (NEGATIVE) Urine Occult Blood (Negative) Urine Nitrate (Negative) Urine Bilirubin (NEGATIVE) Urine Urobilinogen (0.2) E.U./dL Ur Leukocyte Esterase (NEGATIVE) Urine RBC (0-5/HPF) Urine WBC (0-5/HPF) Ur Squamous Epith Cells (0-5/HPF) Ur Transition Epith Cell (0-5/HPF) Urine Bacteria (None) Hyaline Casts (None) Urine Mucus (Negative) Ur Culture Indicated? SARS-CoV-2 (PCR) (Negative) 09/28/22 09/28/22 Range/Units 17:43 18:23 WBC (4.5-11.0) X10^3/uL RBC (4.0-5.2) X10^6/uL Hgb (12.0-16.0) g/dL Hct (36-46) % MCV (80-100) fL MCH (26-34) PG MCHC (30-36) % RDW (11.6-14.8) % Plt Count (150-400) X10^3/uL Neut % (Auto) (50-75) % Lymph % (Auto) (25-40) % Jay % (Auto) (3-14) % Eos % (Auto) (2-4) % Baso % (Auto) (0-2) % Neut # (Auto) (2504-8568) /uL Lymph # (Auto) (9278-1403) /uL Jay # (Auto) (0-900) /uL Eos # (Auto) (0-450) /uL Baso # (Auto) (0-100) /uL Sodium (137-145) mmol/L Potassium (3.4-5.1) mmol/L Chloride (98-107) mmol/L Carbon Dioxide (22-32) mmol/L BUN (7-17) mg/dL Creatinine (0.52-1.04) mg/dL Estimated GFR (>60) mL/min BUN/Creatinine Ratio (6-22) Glucose (80-110) mg/dL Lactate (0.7-2.1) mmol/L Calcium (8.4-10.2) mg/dL Total Bilirubin (0.2-1.3) mg/dL AST (14-36) IU/L ALT (<35) IU/L Alkaline Phosphatase (38-126) U/L Total Protein (6.3-8.2) g/dL Albumin (3.5-5.0) g/dL Globulin (1.7-4.1) g/dL Albumin/Globulin Ratio (1.0-2.8) Lipase (23-300) U/L Urine Color Dark yellow Urine Appearance Slightly cloudy Urine pH 5.0 (4.5-8.0) Ur Specific [place] >=1.030 H (1.000-1.035) Urine Protein 2+ H (Negative) Urine Glucose (UA) Trace H (Negative) g/dL Urine Ketones Trace H (NEGATIVE) Urine Occult Blood 1+ H (Negative) Urine Nitrate Negative (Negative) Urine Bilirubin Negative (NEGATIVE) Urine Urobilinogen 0.2 (0.2) E.U./dL Ur Leukocyte Esterase Negative (NEGATIVE) Urine RBC 0-1/hpf (0-5/HPF) Urine WBC 1-5/hpf (0-5/HPF) Ur Squamous Epith Cells 1-5 /hpf (0-5/HPF) Ur Transition Epith Cell 0-1/hpf (0-5/HPF) Urine Bacteria None seen (None) Hyaline Casts 1-5/lpf (None) Urine Mucus 1+ H (Negative) Ur Culture Indicated? Cult not indicated SARS-CoV-2 (PCR) Negative (Negative) Imaging Data CT scan - abdomen/pelvis: Radiologist's Impression: Signed Patient: Gina Kenney MR#: [id number] : 1955 Acct:[id number] Age/Sex: 67 / F Date of Service: 09/28/22 Loc: Accession Number: [id number] ?? Procedure: CT abdomen pelvis w con Ordering Provider: Palmira Leonardo D.O. PROCEDURE:? CT ABDOMEN PELVIS W CON ? INDICATIONS:? possible gastric leak.... ? TECHNIQUE:? After the administration of oral and intravenous contrast, axial sections were acquired from the lung bases to the pubic symphysis.? Coronal and sagittal reformats were performed.? For radiation dose reduction, the following was used:? automated exposure control, adjustment of mA and/or kV according to patient size.? ? COMPARISON:? [facility], CT, CT CHEST ABD PEL W CON, 09/27/2022, 22:46. ? FINDINGS: Image quality:? Excellent.? ? Lung bases:? There is bibasilar atelectasis.? Heart size is normal. ? Solid organs:? Liver: The liver has no mass or intrahepatic biliary ductal dilatation. The portal vein and hepatic veins are patent. Biliary:? The gallbladder is distended with layering high density likely sludge or vicarious excretion of contrast.? Pancreas: The pancreas has no mass or ductal dilatation. There is no surrounding inflammation. Spleen: Normal size. There are no masses. Adrenals: No hypertrophy or nodules. Kidneys: No obstructive calculus or hydronephrosis.? No solid mass.? The right kidney has a 2 centimeter simple cyst of the superior pole.? ? Peritoneum and bowel:? Small hiatal hernia of the distal esophagus.? The stomach is status post gastric bypass surgery.? There is no evidence of an anastomotic leak.? The small bowel has a normal caliber and appearance. The terminal ileum is normal. The large bowel has a normal caliber and appearance.? Several small punctate areas of air in the anterior upper abdomen, likely due to recent surgery.? There is free fluid in the pelvis and extending into the colic gutters and around the liver. ? Nodes and vessels:? No retroperitoneal or mesenteric adenopathy by size criteria.? Aorta and inferior vena cava are normal in size.? ? Miscellaneous:? No abdominal wall mass or hernia. ? PELVIS:? Genitourinary:? The bladder has no wall thickening or mass.? ? Bones:? No suspicious bony lesions.? No vertebral body compression fractures.? ? IMPRESSION: 1. Ascites and pelvic fluid is unchanged compared to yesterday. 2. Postoperative changes of gastric bypass surgery with no evidence of anastomotic leak. 3. A few punctate foci of free air are seen in the abdomen which could be related to recent surgery, however no free air was seen on yesterday's CT concerning for a perforation.? ? Dictated by: Kenyon Howard M.D. on 09/28/2022 at 19:05 ? ? MDM Narrative Medical decision making narrative: Patient signed out to me by Dr. Marques, patient returns for worsening abdominal pain. Actually saw and evaluated patient last night. Dr. Kidd apparently talked oncology did not think that there was peritoneal carcinomatosis. Has surgery Dr. Grant is an ED to seen evaluated patient agrees that she is quite tender. He reviewed CT and we both spoke with Radiology there is a small amount of free air noted on her CT. At this time he will take her to the OR. She is given Dilaudid for pain which does seem to help. Patient's blood work is overall reassuring normal lactate actually both times. No significant leukocytosis. Discharge Plan Departure Patient Disposition: Admitted As Inpatient Clinical Impression: Perforated abdominal viscus Admit Date/Time: 09/28/22 19:25 Admit Provider: Elijah Grant
[2022-09-28] MEDS: SODIUM CHLORIDE 0.9% 1,000 ML 1000 ML IV (17:44)
[2022-09-28] MEDS: fentaNYL 100 MCG/2 ML INJ 70 MCG IV (17:45)
[2022-09-28 17:48] LABS: Lactate (Lactic Acid) 1.1 mmol/L (0.7-2.1)
[2022-09-28 17:54] LABS: Alanine Aminotransferase 18 IU/L (<35); Albumin 3.4 g/dL (3.5-5.0); Albumin Globulin Ratio 1.2 (1.0-2.8); Alkaline Phosphatase 75 U/L (38-126); Aspartate Aminotransferase 32 IU/L (14-36); BUN Creatinine Ratio 21.7 (6-22); Bilirubin Total 0.6 mg/dL (0.2-1.3); Blood Urea Nitrogen 15 mg/dL (7-17); Calcium 8.6 mg/dL (8.4-10.2); Carbon Dioxide 24 mmol/L (22-32); Chloride 100 mmol/L (98-107); Estimated Glomerular Filt Rate > 60 mL/min (>60); Globulin 2.9 g/dL (1.7-4.1); Glucose 163 mg/dL (80-110); HEMOLYSIS < 15 (0-50); Lipase 598 U/L (23-300); Sodium 132 mmol/L (137-145); Total Protein 6.3 g/dL (6.3-8.2)
--- NOTE | 2022-09-28 18:06 | DI.CT.S_ITS ---
PROCEDURE: CT ABDOMEN PELVIS W CON INDICATIONS: possible gastric leak.... TECHNIQUE: After the administration of oral and intravenous contrast, axial sections were acquired from the lung bases to the pubic symphysis. Coronal and sagittal reformats were performed. For radiation dose reduction, the following was used: automated exposure control, adjustment of mA and/or kV according to patient size. COMPARISON: [facility], CT, CT CHEST ABD PEL W CON, 09/27/2022, 22:46. FINDINGS: Image quality: Excellent. Lung bases: There is bibasilar atelectasis. Heart size is normal. Solid organs: Liver: The liver has no mass or intrahepatic biliary ductal dilatation. The portal vein and hepatic veins are patent. Biliary: The gallbladder is distended with layering high density likely sludge or vicarious excretion of contrast. Pancreas: The pancreas has no mass or ductal dilatation. There is no surrounding inflammation. Spleen: Normal size. There are no masses. Adrenals: No hypertrophy or nodules. Kidneys: No obstructive calculus or hydronephrosis. No solid mass. The right kidney has a 2 centimeter simple cyst of the superior pole. Peritoneum and bowel: Small hiatal hernia of the distal esophagus. The stomach is status post gastric bypass surgery. There is no evidence of an anastomotic leak. The small bowel has a normal caliber and appearance. The terminal ileum is normal. The large bowel has a normal caliber and appearance. Several small punctate areas of air in the anterior upper abdomen, likely due to recent surgery. There is free fluid in the pelvis and extending into the colic gutters and around the liver. Nodes and vessels: No retroperitoneal or mesenteric adenopathy by size criteria. Aorta and inferior vena cava are normal in size. Miscellaneous: No abdominal wall mass or hernia. PELVIS: Genitourinary: The bladder has no wall thickening or mass. Bones: No suspicious bony lesions. No vertebral body compression fractures. IMPRESSION: 1. Ascites and pelvic fluid is unchanged compared to yesterday. 2. Postoperative changes of gastric bypass surgery with no evidence of anastomotic leak. 3. A few punctate foci of free air are seen in the abdomen which could be related to recent surgery, however no free air was seen on yesterday's CT concerning for a perforation. Dictated by: Kenyon Howard M.D. on 09/28/2022 at 19:05 Approved by: Kenyon Howard M.D. on 09/28/2022 at 19:17
[2022-09-28 18:09] LABS: COVID19 -Nasal RAPID Negative (Negative)
[2022-09-28 18:37] LABS: Bilirubin Urine UA NEGATIVE (NEGATIVE); Glucose Urine UA TRACE g/dL (Negative); Ketones Urine UA TRACE (NEGATIVE); Leukocyte Esterase Urine UA NEGATIVE (NEGATIVE); Nitrite Urine UA NEGATIVE (Negative); Occult Blood Urine UA 1+ (Negative); Protein Urine UA 2+ (Negative); Specific Gravity Urine UA >=1.030 (1.000-1.035); Urobilinogen Urine UA 0.2 E.U./dL (0.2)
[2022-09-28 18:38] LABS: Appearance Urine UA Slightly Cloudy
[2022-09-28 18:39] LABS: Color Urine UA Dark Yellow
[2022-09-28] MEDS: HYDROMORPHONE 1 MG INJ IV (19:07)
[2022-09-28 19:17] LABS: Bacteria Urine None Seen; Mucus Urine 1+ (Negative); RBC Urine 0-1/HPF (0-5/HPF); Squamous Epithelial Cell Urine 1-5 /HPF (0-5/HPF); Transitional Epi Cells Urine 0-1/HPF (0-5/HPF); WBC Urine 1-5/HPF (0-5/HPF)
[2022-09-28 19:18] LABS: Culture Indicated Urine Cult Not Indicated; Hyaline Casts Urine 1-5/LPF
--- NOTE | 2022-09-28 19:32 | P.HP_ITS ---
History of Present Illness History of Present Illness Date Patient Seen: 09/28/22 Time Patient Seen: 19:32 Chief complaint: ABD and Chest pain Upper gastric Narrative: Gina is a 67-year-old woman who has advanced breast cancer that has been treated recently in [place] with neoadjuvant chemotherapy, a mastectomy with a sentinel lymph node biopsy and several rounds of radiation. These therapies all take place within the past several months. She reportedly had a good response to the treatment. About 2 days ago she started to developed significant abdominal pain mostly on the right side. She came into the ER last night and a CT was reported as suspicious for peritoneal carcinomatosis and she was discharged. Her oncologists in [place] felt this was highly unlikely. She came back to the ER today with persistent abdominal pain and a repeat CT scan shows a few locules of free air under the diaphragm suggestive of a hollow viscus perforation. She had a remote laparoscopic gastric bypass surgery over 10 years ago which was complicated by a leak requiring her to return to the OR few weeks later. Patient History Medical History Anxiety Ductal carcinoma of right breast HSV (herpes simplex virus) infection Insomnia Family & Social History Safety & Behavioral: Feels Safe in Current Yes Environment Been Physically Hurt or No Threatened By a Person Tobacco & Substance use: Smoking Status Never smoker alcohol intake frequency 0-2 drinks per day Substance Use Type does not use Meds Home Medications and Allergies Home Medications Medication Instructions Recorded Confirmed Type alprazolam 0.25 mg tablet 0.25 mg PO TID #90 tabs 09/16/22 09/16/22 Rx cetirizine 10 mg capsule (All Day 10 mg PO DAILY PRN 09/16/22 09/16/22 History Allergy (cetirizine)) diphenoxylate-atropine 2.5 1 tab PO Q6-8H PRN 09/16/22 09/16/22 History mg-0.025 mg tablet fexofenadine 180 mg tablet 180 mg PO DAILY 09/16/22 09/16/22 History (Evelia Allergy) gabapentin 100 mg capsule 100 mg PO BID 09/16/22 09/16/22 History hydroxyzine pamoate 25 mg capsule 25 mg PO TID #180 caps 09/16/22 09/16/22 Rx ondansetron HCl 8 mg tablet 8 mg PO Q8H 09/16/22 09/16/22 History venlafaxine 37.5 mg 37.5 mg PO BEDTIME #90 tabs 09/16/22 09/16/22 Rx tablet,extended release 24 hr vitamin B comp and C no.3 15 mg-10 1 cap PO BID #180 caps 09/16/22 09/16/22 Rx mg-50 mg-5 mg-300 mg capsule (B Complex Plus Vitamin C) oxycodone 5 mg tablet 5 mg PO Q4H PRN pain #20 tabs 09/28/22 Rx Allergies Allergy/AdvReac Type Severity Reaction Status Date / Time Sulfa (Sulfonamide Allergy Unknown Verified 09/28/22 12:47 Antibiotics) [SULFA (SULFONAMIDE ANTIBIOTICS)] Exam Vital Signs (past 8 hours): - 09/28/22 12:40 09/28/22 13:51 09/28/22 14:00 Temperature 97.8 F Pulse Rate 75 67 66 Respiratory Rate 20 24 20 Blood Pressure 113/53 L 118/58 L 107/56 L Pulse Oximetry 98 100 97 Oxygen Delivery Method Room Air Room Air Room Air 09/28/22 14:30 09/28/22 15:00 09/28/22 15:30 Temperature Pulse Rate 64 72 67 Respiratory Rate 18 22 Blood Pressure 106/55 L 109/58 L 139/61 Pulse Oximetry 97 98 97 Oxygen Delivery Method Room Air Room Air Room Air 09/28/22 17:02 09/28/22 16:00 09/28/22 16:30 Temperature Pulse Rate 74 68 68 Respiratory Rate 12 22 Blood Pressure 127/59 L 122/58 L 129/61 Pulse Oximetry 99 96 96 Oxygen Delivery Method Room Air Room Air Room Air Oxygen Delivery Method Room Air Const General: ill appearing Other: Generalized abdominal peritonitis Objective Labs Result Diagrams: 09/28/22 13:30 09/28/22 13:30 Labs: Laboratory Results - last 24 hr 09/28/22 09/28/22 09/28/22 13:30 13:30 13:30 WBC 12.2 H RBC 4.11 Hgb 9.4 L Hct 30.5 L MCV 74.2 L MCH 23.0 L MCHC 31.0 RDW 18.9 H Plt Count 418 H Neut % (Auto) 91.4 H Lymph % (Auto) 4.7 L [place] % (Auto) 3.8 Eos % (Auto) 0.0 L Baso % (Auto) 0.1 Neut # (Auto) 96380 H Lymph # (Auto) 600 L [place] # (Auto) 500 Eos # (Auto) 0 Baso # (Auto) 0 Sodium 132 L Potassium 4.0 Chloride 100 Carbon Dioxide 24 BUN 15 Creatinine 0.69 Estimated GFR > 60 BUN/Creatinine Ratio 21.7 Glucose 163 H Lactate 1.1 Calcium 8.6 Total Bilirubin 0.6 AST 32 ALT 18 Alkaline Phosphatase 75 Total Protein 6.3 Albumin 3.4 L Globulin 2.9 Albumin/Globulin Ratio 1.2 Lipase 598 H Urine Color Urine Appearance Urine pH Ur Specific [place] Urine Protein Urine Glucose (UA) Urine Ketones Urine Occult Blood Urine Nitrate Urine Bilirubin Urine Urobilinogen Ur Leukocyte Esterase Urine RBC Urine WBC Ur Squamous Epith Cells Ur Transition Epith Cell Urine Bacteria Hyaline Casts Urine Mucus Ur Culture Indicated? SARS-CoV-2 (PCR) 09/28/22 09/28/22 17:43 18:23 WBC RBC Hgb Hct MCV MCH MCHC RDW Plt Count Neut % (Auto) Lymph % (Auto) [place] % (Auto) Eos % (Auto) Baso % (Auto) Neut # (Auto) Lymph # (Auto) [place] # (Auto) Eos # (Auto) Baso # (Auto) Sodium Potassium Chloride Carbon Dioxide BUN Creatinine Estimated GFR BUN/Creatinine Ratio Glucose Lactate Calcium Total Bilirubin AST ALT Alkaline Phosphatase Total Protein Albumin Globulin Albumin/Globulin Ratio Lipase Urine Color Dark yellow Urine Appearance Slightly cloudy Urine pH 5.0 Ur Specific [place] >=1.030 H Urine Protein 2+ H Urine Glucose (UA) Trace H Urine Ketones Trace H Urine Occult Blood 1+ H Urine Nitrate Negative Urine Bilirubin Negative Urine Urobilinogen 0.2 Ur Leukocyte Esterase Negative Urine RBC 0-1/hpf Urine WBC 1-5/hpf Ur Squamous Epith Cells 1-5 /hpf Ur Transition Epith Cell 0-1/hpf Urine Bacteria None seen Hyaline Casts 1-5/lpf Urine Mucus 1+ H Ur Culture Indicated? Cult not indicated SARS-CoV-2 (PCR) Negative Assessment & Plan Assessment and plan (1) Perforated abdominal viscus: Status: Acute Plan Gina is a 67-year-old woman who has free fluid and free air and peritonitis suggestive of a perforated hollow viscus. She will need an exploratory laparotomy to find and address the site of the perforation. We reviewed the risks and benefits and she would like to proceed. Time Spent With Patient Critical Care time: I spent a total of [] minutes of critical care time on this patient's care today; this time is exclusive of procedural time.
[2022-09-28] MEDS: PIPERACILLIN/TAZO 3.375 GM in SODIUM CHLORIDE 0.9% 100 ML IV (20:30)
--- NOTE | 2022-09-28 20:44 | SUR.OPER ---
Supine on padded OR bed, head on pillow, arms secured on padded arm boards at <90 degrees abduction, legs uncrossed, safety belt at thigh
--- NOTE | 2022-09-28 22:23 | P.OP_ITS ---
Operative Date/Time/Diagnoses Date of procedure: 09/28/22 Time of procedure: 22:23 Pre-op diagnosis: Perforated viscus Post-op diagnosis: same Procedure & Clinicians Procedure: Exploratory laparotomy, omental patch of perforated duodenal ulcer and gastrostomy tube Same procedure as scheduled: Yes Surgeon: Elijah Grant Anesthesia Type: General Operative Notes Procedure in detail: The patient was on Zosyn. The patient was brought to the operating room, placed on the table in the supine position and general endotracheal anesthesia was induced. The abdomen was prepped and draped in the usual fashion. A time-out was performed. We made a upper midline incision from the umbilicus to the xiphoid. Peritoneum was divided between tonsil clamps. Once we entered the abdomen bilious ascites was aspirated. Upon exploration we quickly found the source of the perforation which was a 1 cm round hole along the anterior wall of the first portion of the duodenum. We placed 2 2-0 silk sutures that would eventually close the perforation transversely but left them on tied. We then created a tongue of omentum using the LigaSure and laid the time omentum over the perforation. We then tied the 2 2-0 silk sutures over the area time of omentum. We then placed a 19 round [place] drain over the repair and brought it out through a right abdominal stab incision. We irrigated all 4 quadrants of the abdomen with 3 L of warm saline. We then created a gastrostomy in the midportion of the gastric remnant and placed a gastrostomy tube through the left upper quadrant abdominal wall and brought it into the gastrostomy. We placed 3- 0 silk pursestring suture around the gastrostomy and it is not bit tight around the tube. We also placed 2 interrupted 3-0 silk sutures to hold the gastric remnant against the abdominal wall. We then closed the midline incision using 0 PDS reinforced by multiple interrupted 0 Vicryl internal retention sutures. Skin tim were used to close the skin. EBL: 30 mL Post-operative Condition: stable Disposition: PACU
[2022-09-28] MEDS: BUPIVACAINE LIPOSOME 266 MG/20 ML VIAL INJ (22:26)
[2022-09-28] MEDS: LACTATED RINGERS 1,000 ML 100 ML IV (23:19)
[2022-09-29] VITALS (8 sets, daily range): BP systolic 100–120; BP diastolic 51–65; PULSE 67–86; RESP 16–18; TEMP 36.3–36.8; O2SAT 93–97; BMI 25.0
[2022-09-29] MEDS: HYDROMORPHONE 1 MG INJ IV ×7 (00:23→22:11)
[2022-09-29 05:53] LABS: Add Manual Diff / Slide Review NO; Basophils Absolute Auto 0 /uL (0-100); Eosinophils Absolute Auto 0 /uL (0-450); Hematocrit 26.8 % (36-46); Hemoglobin 8.6 g/dL (12.0-16.0); Lymphocytes Absolute Auto 500 /uL (1100-4500); Lymphocytes Percent Auto 3.5 % (25-40); Mean Corpuscular HGB Conc 32.2 % (30-36); Mean Corpuscular Hemoglobin 23.5 PG (26-34); Monocytes Absolute Auto 400 /uL (0-900); Monocytes Percent Auto 2.7 % (3-14); Neutrophils Absolute Auto 14000 /uL (1500-7000); Neutrophils Percent Auto 93.8 % (50-75); Platelet Count 388 X10^3/uL (150-400); Red Blood Cell Count 3.67 X10^6/uL (4.0-5.2); Red Cell Distribution Width 18.3 % (11.6-14.8)
[2022-09-29 06:08] LABS: BUN Creatinine Ratio 22.4 (6-22); Blood Urea Nitrogen 15 mg/dL (7-17); Carbon Dioxide 24 mmol/L (22-32); Chloride 102 mmol/L (98-107); Estimated Glomerular Filt Rate > 60 mL/min (>60); Glucose 145 mg/dL (80-110); HEMOLYSIS < 15 (0-50); Potassium 4.2 mmol/L (3.4-5.1); Sodium 134 mmol/L (137-145)
--- NOTE | 2022-09-29 08:54 | PC.NURSE ---
Addendum entered by Erica Schultz R.N. 09/29/22 18:05: Patient up to the bathroom x2, she sat up in the chair for a couple of hours and felt a lot better after she was able to move around. Her gtube put out 50cc of bile and andres drain 90cc if ss drainage. Patient would like to have more pain medication at 1830. She is a one person assist with walker back to bed. Patient just given 1mg of iv dilaudid and she is in bed, she does not want her scds on tonight. Addendum entered by Erica Schultz R.N. 09/29/22 15:49: Patient states that the 1mg of iv dilaudid given to her at around 1430 did not help her pain, called and asked to either increase dose to 2mg of decrease frequency of dose. He has ordered iv dilaudid every two hours. Additional 1mg dose given to patient at 1550. Dilaudid and normal saline pushed slower and patient stated that she feels fine. Addendum entered by Erica Schultz R.N. 09/29/22 15:14: Patient states that she thinks that she needs more pain medication, called and left a message to see if we can give another one mg and then add 2mg of iv dilaudid every 4 hours as needed. Awaiting his call. Patients states that she thinks our normal saline may have caused her some flushing when administered. Explained to her that when we give her the next pain medications will push slower with the saline. She is itchy, lotion given to patient and she sais that her arms are feeling better now. Addendum entered by Erica Schultz R.N. 09/29/22 14:55: Patient given 1mg of iv dilaudid, will check on patient soon to see if this has been adequate for pain. Addendum entered by Erica Schultz R.N. 09/29/22 14:37: Patient complained of pain, just gave 1mg of iv dilaudid to patient. She is lying supine and resting comfortably. Original Note: Assess- Patient is alert and oriented x4. She denies pain or nausea at this time. Next pain medication will be do at 0900 if needed. Patient has a hx of breast cancer, she had a mastectomy in August, scar is healed up. She has a port that is accessed to her l.upper chest for ivf, which she is tolerated well. Dressing to incisions is cdi. Patient has a ANDRES drain to the right side of her incisions that is putting out ss fluid. She also has a Gastrostomy tube that is putting out bile contents. She is up with a one person assist and is steady on her feet. Her is attentive to care. Patient is resting and is npo at this time.
[2022-09-29] MEDS: PANTOPRAZOLE 40 MG VIAL IV ×2 (09:24→20:05)
[2022-09-29] MEDS: LACTATED RINGERS 1,000 ML 100 ML IV ×2 (09:24→19:53)
--- NOTE | 2022-09-29 11:30 | CM.DANOTE ---
DCP Assessment Patient is 67 y/o female who presented to ED due to concern for upper gastric pain on 09/27/22 and 09/28/22. Patient was admitted to due to perforated abdominal viscus, patient had exploratory Laparotomy surgery on 09/28/[address] Grant. Patient's PCP is JUVENCIO Spears. Patient has Medicare and for Life insurance. Patient is currently an oncology patient at [facility]. Patient has hx of Advanced Breast Cancer, mastectomy, Radiation tx. BOILERMAKER'S ASSISTANT and DCP Madeline, RN enter room to meet with patient. Patient presents as A/Ox3 and endorses independence with ADLs at baseline. Patient presents in room with , it is reported that patient resides at home with in [place] off the grid. It is reported that they rely on solar power and well water. The address provided in EMR is patient's PO box. Patient denies DCP needs upon d/c at this time, DCPs provide patient with phone number if there are any changes. Plan: f/u with POC, no DCP needs at this time. Patient to d/c to home upon medical clearance with . Kenisha Vaughn [facility] Discharge Planning/Care Management CM Discharge Assessment Start: 09/29/22 11:28 Freq: Status: Active Protocol: Document 09/29/22 11:28 LN (Rec: 09/29/22 11:29 LN [id number]) Discharge Planning Assessment Advance Directives? No Advance Directives on File No History Provided By Patient,Significant Other, Medical Record Has Patient been admitted in last 30 No days? Prior Living Arrangements House Household Members spouse Type of transportation used prior to Drives own vehicle admit Independent with ADL's Yes Is patient alert and oriented? Yes Discharge Plan Home Referrals Initiated None needed Please Provide Date Initial DC 09/29/22 Assessment Was Performed
--- NOTE | 2022-09-29 12:50 | P.PN_ITS ---
Subjective Subjective Date Patient Seen: 09/29/22 Time Patient Seen: 12:50 Interval history: Feeling much better today. Not much appetite. Exam Vital Signs (past 8 hours): - 09/29/22 08:53 Temperature 98.0 F Pulse Rate 77 Respiratory Rate 16 Blood Pressure 100/59 L Pulse Oximetry 96 Oxygen Flow Rate 0 Oxygen Delivery Method Room Air Oxygen Flow Rate 0 Narrative Exam Narrative: Abdomen soft ANDRES drain is serosanguineous with no hint of bile G-tube drainage is bilious Objective Labs Result Diagrams: 09/29/22 05:25 09/29/22 05:25 Labs: Laboratory Results - last 24 hr 09/28/22 09/28/22 09/28/22 13:30 13:30 13:30 WBC 12.2 H RBC 4.11 Hgb 9.4 L Hct 30.5 L MCV 74.2 L MCH 23.0 L MCHC 31.0 RDW 18.9 H Plt Count 418 H Neut % (Auto) 91.4 H Lymph % (Auto) 4.7 L [place] % (Auto) 3.8 Eos % (Auto) 0.0 L Baso % (Auto) 0.1 Neut # (Auto) 64640 H Lymph # (Auto) 600 L [place] # (Auto) 500 Eos # (Auto) 0 Baso # (Auto) 0 Sodium 132 L Potassium 4.0 Chloride 100 Carbon Dioxide 24 BUN 15 Creatinine 0.69 Estimated GFR > 60 BUN/Creatinine Ratio 21.7 Glucose 163 H Lactate 1.1 Calcium 8.6 Total Bilirubin 0.6 AST 32 ALT 18 Alkaline Phosphatase 75 Total Protein 6.3 Albumin 3.4 L Globulin 2.9 Albumin/Globulin Ratio 1.2 Lipase 598 H Urine Color Urine Appearance Urine pH Ur Specific [place] Urine Protein Urine Glucose (UA) Urine Ketones Urine Occult Blood Urine Nitrate Urine Bilirubin Urine Urobilinogen Ur Leukocyte Esterase Urine RBC Urine WBC Ur Squamous Epith Cells Ur Transition Epith Cell Urine Bacteria Hyaline Casts Urine Mucus Ur Culture Indicated? SARS-CoV-2 (PCR) 09/28/22 09/28/22 09/29/22 17:43 18:23 05:25 WBC 15.0 H RBC 3.67 L Hgb 8.6 L Hct 26.8 L MCV 73.0 L MCH 23.5 L MCHC 32.2 RDW 18.3 H Plt Count 388 Neut % (Auto) 93.8 H Lymph % (Auto) 3.5 L [place] % (Auto) 2.7 L Eos % (Auto) 0.0 L Baso % (Auto) 0.0 Neut # (Auto) 99877 H Lymph # (Auto) 500 L [place] # (Auto) 400 Eos # (Auto) 0 Baso # (Auto) 0 Sodium Potassium Chloride Carbon Dioxide BUN Creatinine Estimated GFR BUN/Creatinine Ratio Glucose Lactate Calcium Total Bilirubin AST ALT Alkaline Phosphatase Total Protein Albumin Globulin Albumin/Globulin Ratio Lipase Urine Color Dark yellow Urine Appearance Slightly cloudy Urine pH 5.0 Ur Specific [place] >=1.030 H Urine Protein 2+ H Urine Glucose (UA) Trace H Urine Ketones Trace H Urine Occult Blood 1+ H Urine Nitrate Negative Urine Bilirubin Negative Urine Urobilinogen 0.2 Ur Leukocyte Esterase Negative Urine RBC 0-1/hpf Urine WBC 1-5/hpf Ur Squamous Epith Cells 1-5 /hpf Ur Transition Epith Cell 0-1/hpf Urine Bacteria None seen Hyaline Casts 1-5/lpf Urine Mucus 1+ H Ur Culture Indicated? Cult not indicated SARS-CoV-2 (PCR) Negative 09/29/22 05:25 WBC RBC Hgb Hct MCV MCH MCHC RDW Plt Count Neut % (Auto) Lymph % (Auto) [place] % (Auto) Eos % (Auto) Baso % (Auto) Neut # (Auto) Lymph # (Auto) [place] # (Auto) Eos # (Auto) Baso # (Auto) Sodium 134 L Potassium 4.2 Chloride 102 Carbon Dioxide 24 BUN 15 Creatinine 0.67 Estimated GFR > 60 BUN/Creatinine Ratio 22.4 H Glucose 145 H Lactate Calcium 8.0 L Total Bilirubin AST ALT Alkaline Phosphatase Total Protein Albumin Globulin Albumin/Globulin Ratio Lipase Urine Color Urine Appearance Urine pH Ur Specific [place] Urine Protein Urine Glucose (UA) Urine Ketones Urine Occult Blood Urine Nitrate Urine Bilirubin Urine Urobilinogen Ur Leukocyte Esterase Urine RBC Urine WBC Ur Squamous Epith Cells Ur Transition Epith Cell Urine Bacteria Hyaline Casts Urine Mucus Ur Culture Indicated? SARS-CoV-2 (PCR) PFSH Medical History Anxiety Ductal carcinoma of right breast HSV (herpes simplex virus) infection Insomnia Social History household members: spouse Smoking Status: Never smoker alcohol intake: former Assessment & Plan Assessment and plan (1) Perforated abdominal viscus: Status: Acute Plan Doing well postop day 1 following exploratory laparotomy, omental patch of perforated duodenal ulcer and gastrostomy tube. Clear liquids today Lovenox tonight Time Spent With Patient Critical Care time: I spent a total of [] minutes of critical care time on this patient's care today; this time is exclusive of procedural time.
[2022-09-29] MEDS: ENOXAPARIN 40 MG/0.4 ML SYRINGE SUBCUT (13:23)
[2022-09-30] MEDS: HYDROMORPHONE 1 MG INJ IV ×4 (02:37→21:52)
[2022-09-30 03:05] VITALS: BP 115/64; PULSE 76; RESP 17; TEMP 36.8; O2SAT 96
[2022-09-30] MEDS: LACTATED RINGERS 1,000 ML 100 ML IV (05:49)
[2022-09-30] MEDS: ENOXAPARIN 40 MG/0.4 ML SYRINGE SUBCUT (08:31)
[2022-09-30] MEDS: PANTOPRAZOLE 40 MG VIAL IV ×2 (08:32→21:52)
--- NOTE | 2022-09-30 10:08 | PC.NURSE ---
Addendum entered by Erica Schultz R.N. 09/30/22 10:24: Patient had 100cc of serous drainage out of KAIN drain when emptied, in room and supportive of care. Original Note: Patient states that she feels a bit better today, she was up in the chair for breakfast and tolerated her clear liquids well. Patient is a one person sba with walker. Dressing to cdi. Patients kain drain is putting out serous drainage and gtube is putting out a brown color. She is tolerating her ivf, and has not had a problem with nausea. Patient was given 1mg of dilaudid and this brought her pain down from a 7. She is back to bed and has her scds off at this time. Port is flushing good, and has good blood draw back.
[2022-09-30 12:27] VITALS: BP 140/68; PULSE 92; RESP 20; TEMP 37.1; O2SAT 92
--- NOTE | 2022-09-30 15:28 | PM.PN.1 ---
Subjective Subjective Date Patient Seen: 09/30/22 Time Patient Seen: 15:28 Interval history: Gina is doing better today. Her pain is much more manageable. She has tolerated clear liquids. Exam Vital Signs (past 8 hours): - 09/30/22 12:27 Temperature 98.7 F Pulse Rate 92 H Respiratory Rate 20 Blood Pressure 140/68 Pulse Oximetry 92 Oxygen Delivery Method Room Air Oxygen Flow Rate 0 Narrative Exam Narrative: Abdomen soft ANDRES drain is serosanguineous but filler block inserter remover than yesterday G-tube output is bilious Objective Labs Result Diagrams: 09/29/22 05:25 09/29/22 05:25 [facility] Medical History Anxiety Ductal carcinoma of right breast HSV (herpes simplex virus) infection Insomnia Social History household members: spouse Smoking Status: Never smoker alcohol intake: former Assessment & Plan Assessment and plan (1) Perforated abdominal viscus: Status: Acute Plan Doing well following omental patch of perforated duodenal ulcer and gastrostomy tube placement. Will advance to regular diet today. We will perform an upper GI tomorrow with contrast injected into the gastrostomy tube rule out leak Time Spent With Patient Critical Care time: I spent a total of [] minutes of critical care time on this patient's care today; this time is exclusive of procedural time.
--- NOTE | 2022-09-30 16:47 | PC.NURSE ---
Pt having relatively uneventful day, Right chest port now HL ANDRES patent, gastric tube patent/intact, Possible D/C home tomorrow. Call light w/in reach, pt calls appropriately for needs. Continue w/plan of care.
[2022-09-30 19:20] VITALS: BP 134/68; PULSE 87; RESP 18; TEMP 37.1; O2SAT 94
[2022-10-01] VITALS: BP 124/57; PULSE 81; RESP 18; TEMP 36.6; O2SAT 93
[2022-10-01 05:29] VITALS: BP 138/63; PULSE 70; RESP 18; TEMP 36.5; O2SAT 94
--- NOTE | 2022-10-01 06:53 | PC.NURSE ---
Patient's G tube intact with light green drainage, 100 cc out for 12 hr shift. ANDRES drain intact with serous drainage, 135 cc out for 12 hr shift. ANDRES site dressing loose with small amount serous drainage, area cleansed with NS and drsg changed. Patient's abd pain much improved, received Dil 1mg IV x1 at bedtime. Patient slept well.
--- NOTE | 2022-10-01 07:48 | DI.RAD.S_ITS ---
PROCEDURE: FL UPPER GI SERIES INDICATIONS: Inject contrast into G tube. Use 50% of the normal volume. Recent repair of perforated ulcer at the first portion of the duodenum. COMPARISON: [facility], CT, CT ABDOMEN PELVIS W CON, 09/28/2022, 18:17. FINDINGS: Preprocedural diesel locomotive firer/fireman film demonstrates a percutaneous gastrostomy tube projecting over the left upper quadrant of the abdomen. Skin tim are present. No dilated gas-filled loops of bowel visualized in the upper abdomen. Surgical tim project over the left upper quadrant from prior Elham-en-Y gastric bypass. With injection of contrast through the G-tube, the excluded stomach is opacified. No leak of contrast from the distal stomach at the site of the G-tube is visualized. Gastric emptying and opacification of the proximal-mid duodenum eventually visualized with RPO positioning of the patient. No leak of contrast from the proximal or mid duodenum identified. Approximately 50 cc Gastrografin injected through the G-tube. The tube was flushed with approximately 75 cc of water. IMPRESSION: No leak from the proximal-mid duodenum visualized. Dictated by: Bo Michaels M.D. on 10/01/2022 at 15:28 Approved by: Bo Michaels M.D. on 10/01/2022 at 15:38
[2022-10-01 08:00] VITALS: BP 135/77; PULSE 68; RESP 18; TEMP 36.7; O2SAT 94
[2022-10-01] MEDS: ENOXAPARIN 40 MG/0.4 ML SYRINGE SUBCUT (09:52)
[2022-10-01] MEDS: HYDROCODONE/ACET 5/325 TABLET 1 TAB PO ×2 (09:53→21:01)
[2022-10-01] MEDS: PANTOPRAZOLE 40 MG VIAL IV (09:53)
[2022-10-01 12:14] VITALS: BP 121/64; PULSE 66; RESP 18; TEMP 36.4; O2SAT 95
[2022-10-01] MEDS: HYDROMORPHONE 0.5 MG INJ IV ×2 (12:30→18:10)
--- NOTE | 2022-10-01 13:12 | PM.PNPO.1 ---
Subjective Subjective Date Patient Seen: 10/01/22 Time Patient Seen: 13:12 Interval history: worsening abdominal pain with eating today. Continuing to require IV pain medication. Positive flatus Exam Vital Signs (past 8 hours): - 10/01/22 05:29 10/01/22 08:00 10/01/22 12:14 Temperature 97.7 F 98.0 F 97.5 F L Pulse Rate 70 68 66 Respiratory Rate 18 18 18 Blood Pressure 138/63 135/77 121/64 Pulse Oximetry 94 94 95 Oxygen Flow Rate 0 0 0 Oxygen Delivery Method Room Air Oxygen Flow Rate 0 Narrative Exam Narrative: general adult woman alert oriented no acute distress Abdomen soft appropriately tender to palpation. ANDRES drain serosanguineous. Gastric tube with clear content Objective Labs Result Diagrams: 09/29/22 05:25 09/29/22 05:25 [facility] Medical History Anxiety Ductal carcinoma of right breast HSV (herpes simplex virus) infection Insomnia Social History household members: spouse Smoking Status: Never smoker alcohol intake: former Assessment & Plan Post-op Postoperative Procedures: Procedures Operation Date: 09/28/22 21:15 Actual Procedure Side Surgeon p Exploratory Laparotomy , Omental patch and gatrostomy tube Not Applicable Elijah Grant MD Postoperative plan narrative: 67-year-old woman history of Elham-en-Y gastric bypass postoperative day 3 status post exploratory laparotomy and Deon patch repair of perforated peptic ulcer. - follow-up upper GI series, if okay drain removal and close gastrostomy tube - wean IV pain medication as able
--- NOTE | 2022-10-01 19:06 | PC.NURSE ---
Pt J/P drain dressing and gastric tube dressing CDI. Gastric tube output light yellow/green color and 110 ml output for 12 hours shift and J/P drain output serosanguineous color 150 ml output for 12 hours shift.
[2022-10-01 20:14] VITALS: BP 143/72; PULSE 63; RESP 18; TEMP 36.4; O2SAT 98
[2022-10-01] MEDS: PANTOPRAZOLE DR 40 MG TABLET PO (20:36)
[2022-10-02] MEDS: HYDROMORPHONE 1 MG INJ IV ×5 (01:17→15:45)
[2022-10-02 04:54] VITALS: BP 133/72; PULSE 68; RESP 18; TEMP 36.4; O2SAT 96
[2022-10-02 07:37] VITALS: BP 139/73; PULSE 72; RESP 18; TEMP 36.3; O2SAT 93
[2022-10-02] MEDS: PANTOPRAZOLE DR 40 MG TABLET PO (09:06)
[2022-10-02] MEDS: HYDROCODONE/ACET 5/325 TABLET 1 TAB PO ×2 (09:07→14:01)
[2022-10-02] MEDS: ENOXAPARIN 40 MG/0.4 ML SYRINGE SUBCUT (09:07)
--- NOTE | 2022-10-02 17:04 | PC.NURSE ---
Pt was discharged today following surgery. Pt is to follow up with PCP and other members of her care team as needed. Pt A&Ox4 upon discharge, port de-accessed at the time of discharge. 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 Pt able to verbalize when to return to the ED ff needed and when to follow up with care team providers. Discharge instructions were explained to pt and pt's spouse, all questions answered at time of discharge. Pt wheeled out to the parking lot by this RN and was driven home by her .
--- NOTE | 2022-10-09 13:07 | PM.CALLCOV.1 ---
Call Coverage Note Note Narrative of Care Provided: Ms. Kenney called to request a refill of some pain medicine. She had surgery on 09/28 and was discharged on 10/02. She is overall doing fairly well but the pain medicine is helping. She denies having constipation. Able to eat. He has a follow-up arranged. She requested oxycodone over hydrocodone because she notices that the hydrocodone that tends to cause urinary retention for her. I have phoned in a new prescription to her preferred pharmacy.
--- NOTE | 2022-10-19 11:25 | P.DS_ITS ---
History of Present Illness History of Present Illness Chief complaint: ABD and Chest pain Upper gastric Narrative: Gina is a 67-year-old woman who has advanced breast cancer that has been treated recently in [place] with neoadjuvant chemotherapy, a mastectomy with a sentinel lymph node biopsy and several rounds of radiation. These therapies all take place within the past several months. She reportedly had a good response to the treatment. About 2 days ago she started to developed significant abdominal pain mostly on the right side. She came into the ER last night and a CT was reported as suspicious for peritoneal carcinomatosis and she was discharged. Her oncologists in [place] felt this was highly unlikely. She came back to the ER today with persistent abdominal pain and a repeat CT scan shows a few locules of free air under the diaphragm suggestive of a hollow viscus perforation. She had a remote laparoscopic gastric bypass surgery over 10 years ago which was complicated by a leak requiring her to return to the OR few weeks later. Discharge Providers Provider Date of admission: 09/28/22 19:25 Discharge Date: 10/02/22 Primary care physician: JUVENCIO Spears Discharge provider: Elijah Grant MD Summary Hospital Course Discharge Diagnosis: Perforated ulcer perforated ulcer Hospital Course: The patient underwent an ex lap with an omental patch for a perforated duodenal ulcer. She recovered on the floor and her diet was advanced. A Gastrografin drain study was performed using the G-tube that had been placed into the remnant stomach to confirm that the omental patch was sealed. She was discharged home when she was able to eat and drink and her pain was controlled. Exam Vital Signs (past 8 hours): Oxygen Delivery Method Room Air Oxygen Flow Rate 0 Objective Labs Result Diagrams: 09/29/22 05:25 09/29/22 05:25 [facility] Medical History Anxiety Ductal carcinoma of right breast HSV (herpes simplex virus) infection Insomnia Social History household members: spouse Smoking Status: Never smoker alcohol intake: former Discharge Plan Discharge Plan Patient Disposition: Home Provider Discharge Comment: Keep G tube capped. Discharge orders & Medications Prescriptions: New omeprazole 40 mg capsule,delayed release(DR/EC) 40 mg PO BID Qty: 90 0RF Continued gabapentin 100 mg capsule 100 mg PO QAM diphenoxylate-atropine 2.5-0.025 mg tablet 1 tab PO Q6-8H PRN (Reason: Allergy Symptoms) ondansetron HCl 8 mg tablet 8 mg PO Q8H PRN (Reason: Nausea) fexofenadine [Evelia Allergy] 180 mg tablet 180 mg PO DAILY All Day Allergy (cetirizine) 10 mg capsule 10 mg PO DAILY PRN (Reason: Allergy Symptoms) B Complex Plus Vitamin C 21-61-44-5-300 mg capsule 1 cap PO BID Qty: 180 3RF Rx Instructions: give with food (meal/snack) twice daily for neuropathies alprazolam 0.25 mg tablet 0.25 mg PO TID PRN (Reason: Anxiety) Rx Instructions: Take 1/2 to 1 tab up to 3x/day as needed for panic attacks. gabapentin 100 mg Tablet 200 mg PO BEDTIME hydroxyzine pamoate 25 mg capsule 25 mg PO BID No Action oxycodone 5 mg tablet 5 mg PO Q6H PRN (Reason: pain) Qty: 20 0RF Rx Instructions: may take 1-2 tabs every 6 hours for pain as needed. Best to take with tylenol 1000 mg Q6 hours. hydrocodone-acetaminophen 5-325 mg tablet 1 tab PO Q8H PRN (Reason: pain) Qty: 10 0RF Follow up/Referrals: Mila Chou ARNP [Primary Care Provider] - Visit Report/Discharge Packet Instructions: Gastric Ulcer, Duodenal Ulcer, DI for Charlie-Garcia Drains Discharge Data Primary Care Provider: Mila Chou
== END 2022-10-02 16:04 | disposition home or self-care (01) | DRG 330 ==
LOC: ED 19:24 → AC 19:48
PROVIDERS: Family Medicine Addiction Medicine; Admitting Provider Surgery; Emergency Provider Emergency Medicine; PCP Nurse Practitioner; Referring Provider Emergency Medicine; Visit Provider Surgery
PROC: 0DJU0ZZ Inspection of Omentum, Open Approach (ICD-10-PCS; CPT 49000; principal; 2022-09-28 21:15)
DX: K26.5 Chronic or unspecified duodenal ulcer with perforation (principal); C78.6 Secondary malignant neoplasm of retroperitoneum and peritoneum; R06.02 Shortness of breath; F41.9 Anxiety disorder, unspecified; Z20.822 Contact with and (suspected) exposure to COVID-19; Z98.84 Bariatric surgery status
CPT/HCPCS: 36415; 43840; 49905; 71260; 74177; 74240; 76705; 80048; 80053; 81001; 81003; 82550; 83605; 83690; 84484; 85025; 87040; 87635; 93005; 96374; 96376; 99222; 99284; C9803; C9113; C9290; J1100; J1170; J1642; J1650; J2250; J2405; J2543; J2704; J3010; Q9967

== ENCOUNTER → 2022-12-09 15:16 | Outpatient (CLI) | payer MEDICARE, OTHER, SELFPAY ==
[2022-10-18 10:53] VITALS: BMI 25.0
[2022-12-11 17:27] LABS: H. Pylori Antigen Stool Negative (Negative)
== END ==
PROVIDERS: PCP Nurse Practitioner; Referring Provider Internal Medicine; Visit Provider Internal Medicine
DX: L29.8 Other pruritus (principal)
CPT/HCPCS: 87045; 87177; 87338; 87899

== ENCOUNTER → 2023-01-17 13:26 | Outpatient (CLI) | payer MEDICARE, OTHER, SELFPAY ==
[2022-12-20 15:46] VITALS: BMI 25.0
[2023-01-20 14:25] LABS: H. Pylori Antigen Stool Negative (Negative)
== END ==
PROVIDERS: PCP Nurse Practitioner; Referring Provider Internal Medicine; Visit Provider Internal Medicine
DX: L29.8 Other pruritus (principal)
CPT/HCPCS: 87177; 87338

== ENCOUNTER → 2023-03-23 17:11 | Outpatient (CLI) | payer MEDICARE, OTHER, SELFPAY ==
[2022-12-20 15:46] VITALS: BMI 25.0
[2023-03-23 17:38] LABS: Appearance Urine UA CLEAR; Bilirubin Urine UA NEGATIVE (NEGATIVE); Color Urine UA YELLOW; Glucose Urine UA NEGATIVE (Negative); Ketones Urine UA NEGATIVE (NEGATIVE); Leukocyte Esterase Urine UA NEGATIVE (NEGATIVE); Nitrite Urine UA NEGATIVE (Negative); Occult Blood Urine UA NEGATIVE (Negative); Protein Urine UA NEGATIVE (Negative); Urobilinogen Urine UA 0.2 E.U./dL (0.2)
[2023-03-23 17:40] LABS: pH Urine UA 5.5 (4.5-8.0)
[2023-03-23 17:46] LABS: Bacteria Urine None Seen; Culture Indicated Urine Cult Not Indicated; RBC Urine None Seen (0-5/HPF); Urine Comments Microscopic Normal; WBC Urine None Seen (0-5/HPF)
== END ==
PROVIDERS: PCP Nurse Practitioner; Referring Provider Nurse Practitioner; Visit Provider Nurse Practitioner
DX: R39.15 Urgency of urination (principal)
CPT/HCPCS: 81001

== ENCOUNTER → 2023-06-22 15:07 | Outpatient (CLI) | payer MEDICARE, OTHER, SELFPAY ==
[2022-12-20 15:46] VITALS: BMI 25.0
[2023-06-22 18:40] LABS: Urine N gonorrhoeae NOT DETECTED
[2023-06-22 18:46] LABS: Urine Chlamydia NOT DETECTED
[2023-06-23 17:39] LABS: Hepatitis B Surface Antigen NEGATIVE s/c (NEGATIVE)
[2023-06-23 17:59] LABS: HIV 1 & 2 Ab/Ag 4th Gen Combo NEGATIVE (NEGATIVE); Hep C Virus Ab w/Reflex Quant NEGATIVE s/c (NEGATIVE)
[2023-06-24 01:15] LABS: HSV 2 IGG AB < 0.91 index (0.00-0.90)
[2023-06-24 08:10] LABS: RPR Screen Non Reactive (Non Reactive)
== END ==
PROVIDERS: PCP Nurse Practitioner; Referring Provider Nurse Practitioner; Visit Provider Nurse Practitioner
DX: Z11.3 Encounter for screening for infections with a predominantly sexual mode of transmission (principal)
CPT/HCPCS: 36415; 86592; 86695; 86696; 86803; 87340; 87389; 87491; 87591

== ENCOUNTER → 2024-03-27 12:04 | Outpatient (CLI) | payer MEDICARE, OTHER, SELFPAY ==
[2023-08-02 16:58] VITALS: BMI 25.0
--- NOTE | 2024-03-27 12:06 | DI.RAD.S_ITS ---
PROCEDURE: XR KNEE RT 3V INDICATIONS: pain deep inside x 1 week, R>l TECHNIQUE: 3 views of the knee were acquired. COMPARISON: [facility], CR, XR KNEE LT 3V, 03/27/2024, 12:13. FINDINGS: Bones: No fractures or dislocations. Mild tricompartmental joint space narrowing and juxta-articular osteophytosis. No suspicious bony lesions. Soft tissues: Moderate joint effusion. No suspicious soft tissue calcifications. IMPRESSION: 1. No acute osseous abnormality. If clinical symptoms persist, consider repeat radiograph in 10-14 days versus cross-sectional imaging. 2. Moderate suprapatellar joint effusion. 3. Mild tricompartmental osteoarthritis. Dictated by: Mikayla Radford M.D. on 03/27/2024 at 17:23 Approved by: Mikayla Radford M.D. on 03/27/2024 at 17:24
--- NOTE | 2024-03-27 12:06 | DI.RAD.S_ITS ---
PROCEDURE: XR KNEE LT 3V INDICATIONS: pain x 1 week R>L TECHNIQUE: 3 views of the knee were acquired. COMPARISON: [facility], CR, XR KNEE RT 3V, 03/27/2024, 12:13. FINDINGS: Bones: No fractures or dislocations. Moderate medial and mild lateral and patellofemoral compartment joint space narrowing and juxta-articular osteophytosis. No suspicious bony lesions. Soft tissues: Small joint effusion. No suspicious soft tissue calcifications. IMPRESSION: 1. No acute osseous abnormality. If clinical symptoms persist, consider repeat radiograph in 10-14 days versus cross-sectional imaging. 2. Tricompartmental osteoarthritis, moderate in the medial compartment. Dictated by: Mikayla Radford M.D. on 03/27/2024 at 17:22 Approved by: Mikayla Radford M.D. on 03/27/2024 at 17:23
[2024-03-27 14:44] LABS: Add Manual Diff / Slide Review NO; Basophils Absolute Auto 100 /uL (0-100); Basophils Percent Auto 1.2 % (0-2); Eosinophils Absolute Auto 300 /uL (0-450); Eosinophils Percent Auto 4.7 % (2-4); Hematocrit 44.1 % (36-46); Hemoglobin 14.8 g/dL (12.0-16.0); Lymphocytes Absolute Auto 1900 /uL (1100-4500); Lymphocytes Percent Auto 33.3 % (25-40); Mean Corpuscular HGB Conc 33.4 % (30-36); Mean Corpuscular Hemoglobin 31.2 PG (26-34); Mean Corpuscular Volume 93.5 fL (80-100); Monocytes Absolute Auto 500 /uL (0-900); Monocytes Percent Auto 8.3 % (3-14); Neutrophils Absolute Auto 3000 /uL (1500-7000); Neutrophils Percent Auto 52.5 % (50-75); Platelet Count 400 X10^3/uL (150-400); Red Blood Cell Count 4.72 X10^6/uL (4.0-5.2); Red Cell Distribution Width 13.5 % (11.6-14.8); White Blood Cell Count 5.7 X10^3/uL (4.5-11.0)
[2024-03-27 15:10] LABS: Erythrocyte Sedimentation Rate 7 MM/HR (0-20)
[2024-03-27 15:20] LABS: C-Reactive Protein Quant < 0.5 mg/dL (<1.0); Uric Acid 6.8 mg/dL (2.5-6.2)
[2024-04-05 17:10] LABS: HLA B27 Negative (.)
== END ==
PROVIDERS: PCP Nurse Practitioner; Referring Provider Physician Assistant; Visit Provider Physician Assistant
DX: M17.0 Bilateral primary osteoarthritis of knee (principal); M25.561 Pain in right knee; M25.562 Pain in left knee
CPT/HCPCS: 36415; 73562; 81374; 84550; 85025; 85651; 86140

== ENCOUNTER 2024-09-26 08:15 | Outpatient (RCR) | payer MEDICARE, OTHER, SELFPAY ==
[2023-08-02 16:58] VITALS: BMI 25.0
--- NOTE | 2024-08-23 16:46 | PT.OIE ---
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 History of duodenal ulcer History of gastric bypass (01/25/18) HSV (herpes simplex virus) infection Hyperlipidemia Insomnia Invasive ductal carcinoma of breast (~01/2022) Viral wart on finger Past Surgical History (Last Updated 06/12/24 @ 10:12 by JUVENCIO Spears) History of bariatric surgery History of exploratory laparotomy History of mastectomy Visit Care Team Role Provider Type JUVENCIO Spears Family Provider Advanced Pattern Grader Cutter Primary Care Provider Specialty: Family Practice Address: [address] [place] [address] Email: [email or web address] Jaison Jeong PA-C Attending Provider Advanced Pattern Grader Cutter Referring Provider Specialty: Orthopedics Orthopedic Surgery Address: [address] [place] [address], [facility] Email: [email or web address] Physical Therapy Initial Evaluation PT-OP-A Visit Information Start: 08/16/24 10:12 Freq: Status: Active Protocol: Document 08/23/24 08:45 [facility] (Rec: 08/23/24 09:45 [facility] [id number]) Out-Patient Physical Therapy Visit Information Visit Information Visit Type Initial Evaluation Visit Note 12/07 Visit Start Time 08:45 Visit Stop Time 09:42 Visit Number 1 Number of MOSS GATHERER Visits 0 PT-OP-B Current Condition Start: 08/16/24 10:12 Freq: Status: Active Protocol: Document 08/23/24 08:45 [facility] (Rec: 08/23/24 09:45 [facility] [id number]) Current Condition History of Current Condition Onset Date worsening past few months Current Complaints B knee pain, LBP History of Current Condition Pt reports started having trouble w/knees about 3 or 4 months ago. She reports it may have been uneven ground carrying something but had so specific injury. Has done some xrays and OA was noted. Then her back gave out started about a month ago and had a lot of pain and was concerned about using pain meds d/t ulcers. Now she is using tylenol daily and does it once a day (650mg in AM) and gabapentin 1x/day and occasionally at night if having difficulty sleeping. By end of the day, caitlin starts to feels the back . Moving feels better. hx of neck pain pain and arm numbness that has been constant for many years and did do PT for it. Hx of ulcer surgery in 2021. when back pain first started, could only roll out of bed then scoot down the stairs. hx of bypass bariatric surgery (had a 2nd surgery d/t something wrong right after) about 18 years old and 2 c sections and during one of those take a tumor off the uterus. hx of R masectomy and chemo and has had B foot neuropathy since chemo. Has had chronic LBP in the past and has had to be careful. Pt reports she is busy all day long and has 2 flights of stairs and has to up/down often. Also tends chickens outside and does her own yard work and gardening. Does have to do lifting. At night, feels like she has to stretch out so will stretch in the evening. Treatment Goals Patient/Caregiver Goals strengthen knees to avoid TKA for a while longer, strengthen back,be able to reciprocate stairs, improve balance PT-OP-C Subjective Start: 08/16/24 10:12 Freq: Status: Active Protocol: Document 08/23/24 08:45 [facility] (Rec: 08/23/24 09:45 [facility] [id number]) Patient Questionnaires Oswestry Low Back Index Oswestry Score 50 OP-PT Pain Assessment Location B knees Pain Location Details ant knees to shins Description With Movement Pain Aggravating Factors Stair Climbing Other Pain Aggravating Factors uneven ground Pain Alleviating Factors Medication back pain Pain Location Details low back into B buttocks Description- Other numb Radiating Location B ant lat legs & L lat thigh Pain Aggravating Factors Lifting Other Pain Aggravating Factors 1st thing in Am, standing up after sitting Pain Alleviating Factors Heat,Medication PT-OP-D Balance Start: 08/16/24 10:12 Freq: Status: Active Protocol: Document 08/23/24 08:45 [facility] (Rec: 08/23/24 09:45 [facility] [id number]) Balance Tests Single Limb Standing Single Limb- Right 8 sec Single Limb- Left 7 sec PT-OP-G Mobility & Gait Start: 08/16/24 10:12 Freq: Status: Active Protocol: Document 08/23/24 08:45 [facility] (Rec: 08/23/24 09:45 [facility] [id number]) OP Gait Assessment Comments Gait Comments dec wt acceptance w/LLE w/SB into L trunk w/wt acceptance, dec push off, dec trunk and UE movement Stair Climbing Evaluation Comments Stair Climbing Comments step to down stairs LLE leading and recip up w/rail use both up/down PT-OP-J Posture/Palpation/Skin Start: 08/16/24 10:12 Freq: Status: Active Protocol: Document 08/23/24 08:45 [facility] (Rec: 08/23/24 09:45 [facility] [id number]) Posture Evaluation [facility] Postural Classification System [facility] Postural Classifications Posterior/Anterior Vertical Compression Test 0 Lumbar Protective Mechanism Left AP 0 Lumbar Protective Mechanism Right AP 0 Lumbar Protective Mechanism Left PA 0 Lumbar Protective Mechanism Right PA 0 Comments Posture Comments L foot turne dout more than R, R shoulder more rounded fwd, R pelvic shear and R turnk rot , R iliac crest higher, equal greater trocahnters PT-OP-K Range of Motion Start: 08/16/24 10:12 Freq: Status: Active Protocol: Document 08/23/24 08:45 [facility] (Rec: 08/23/24 09:45 [facility] [id number]) Lumbar Spine Range of Motion Lumbar Spine Active Percentage Flexion 40 Extension 75 Rotation Left 40 Rotation Right 40 Lateral Flexion Left 75 Lateral Flexion Right 75 Comments feels tight w/rot PT-OP-L Special Tests Start: 08/16/24 10:12 Freq: Status: Active Protocol: Document 08/23/24 08:45 [facility] (Rec: 08/23/24 09:45 [facility] [id number]) Special Tests Lumbar Spine Special Tests Straight Leg Raise Test Results neg about 90 deg B Anuel Test Results positive R RF and quad, L hip flexor Slump Test Results neg B PT-OP-M Strength Start: 08/16/24 10:12 Freq: Status: Active Protocol: Document 08/23/24 08:45 [facility] (Rec: 08/23/24 09:45 [facility] [id number]) Hip Strength Hip Manual Muscle Testing Right Flexion (L2) 3+ Fair+ Extension (S1) 3+ Fair+ Abduction 3+ Fair+ Adduction 4- Good- External Rotation 3+ Fair+ Internal Rotation 3+ Fair+ Left Flexion (L2) 3+ Fair+ Extension (S1) 3+ Fair+ Abduction 3+ Fair+ Adduction 4 Good External Rotation 3+ Fair+ Internal Rotation 3+ Fair+ Knee Strength Knee Manual Muscle Testing Right Flexion (S2) 3+ Fair+ Extension (L3) 4- Good- Left Flexion (S2) 4- Good- Extension (L3) 4- Good- Ankle/Foot Strength Ankle and Foot Manual Muscle Testing Right Dorsiflexion (L4) 5 Normal Plantarflexion (S1) 5 Normal Left Dorsiflexion (L4) 5 Normal Plantarflexion (S1) 5 Normal Comments Pf tested seated PT-OP-Q Treatments Start: 08/16/24 10:12 Freq: Status: Active Protocol: Document 08/23/24 08:45 [facility] (Rec: 08/23/24 09:45 [facility] [id number]) Self-Care/Home Management Treatment Education Other Education 15 min: edu re: how abdominal surgeries likely affected tension in back and potenially L shoulder. discussed how scar tissue can pull and over time cause wear and tear and change of movement patterns. Discussed how abdomen does not fold and move well w/her ROM. Discussed how abdominal surgery has also affected core strength and how she is overall weak in hips and knees likely contributing to pain PT-OP-T Assessment and Plan Start: 08/16/24 10:12 Freq: Status: Active Protocol: Document 08/23/24 08:45 [facility] (Rec: 08/23/24 09:45 [facility] [id number]) Physical Therapy Assessment Rehab Potential Rehabilitation Potential Good Evaluation Complexity Number of Personal Factors/Comorbidities 3 or More Number of Body Systems Impaired 4 or More Clinical Presentation at Evaluation Evolving Impairments Impairments Activity Tolerance,Balance, Functional Activities, Functional Mobility,Gait,Pain, Posture,ROM,Soft Tissue Mobility,Strength,Transfers Goals posture Short Term Goal (STG) Pt will score at least 2/5 VCT to show improved postural stability to allow greater ease with upright activities STG Duration 09/28 Director Compensation Goal (LTG) Pt will score at least 4/5 VCT to show improved postural stability to allow greater ease with upright activities LTG Duration 10/28 balance Mcfp Goal (LTG) Pt will be able to do SLS 15 sec to show improved balacne LTG Duration 10/28 activity Short Term Goal (STG) Pt will be able to reciprocate up stairs w/o rail w/o pain or feel of LOB STG Duration 09/28 Director Compensation Goal (LTG) Pt will be able to reciprocate down stairs w/o rail w/o knee or back pain LTG Duration 10/28 strength Short Term Goal (STG) Pt will be indep w/HEP STG Duration 09/28 Mcfp Goal (LTG) Pt will score at least 4+/5 on all BLE MMT and at least 3/5 LPM to show improved stability to allow greater ease w/daily activties. LTG Duration 11/01 Assessment Summary Assessment Pt presents w/about 1 month ago onset of severe LBP to L leg pain that has improved w/ tylenol and gabapentin use, but has been unable to stop taking these. She had onset of B knee pain about 3 months ago also, which also still limits her. She has recent ( 2021) hx of exploratory surgery with large incision that they ended up finding ulcers to treat. At this time, it appears like this scar tissue limits her mobility in back and may related to her back and knee pain. Her pelvis being uneven likely relates to her bakc and knee pain and does affect her gait mechanics . Pt would benefit from skilled PT to address deficits and improve mobility and decrease pain. Physical Therapy Plan Frequency and Duration Frequency of Treatment 2x/Week Duration of treatment (weeks) 10 Plan of Care Start Date 08/23/24 Plan of Care End Date 11/01/24 Therapeutic Interventions Therapeutic Interventions Balance Training,Gait Training ,Home Exercise Program,Joint Mobilizations,Manual Therapy, Neuromuscular Re-education, Patient/Caregiver Education, Self-Care/Home Management,Soft Tissue Mobilization,Taping, Therapeutic Activities, Therapeutic Exercises Modalities Cold Pack/Ice Massage,Electric Stimulation,Hot Packs, Infrared Therapy,Traction- Mechanical,Ultrasound Next Visit Focus/Plan Next Note Type Treatment Note Next Visit Plan manual: to abdominal scar tissue, innominate and hip correction HEP: sit to stands, bridges, LTR, paloff press and further core work, side steps
--- NOTE | 2024-08-23 16:46 | PT.OPPOC ---
Physical, Occupational & Speech Therapy At [facility] Current Diagnoses Pain in right knee (08/23/24) Pain in left knee (08/23/24) Radiculopathy, lumbar region (08/23/24) Abnormal posture (08/23/24) Weakness (08/23/24) Visit Care Team Role Provider Type JUVENCIO Spears Family Provider Advanced Light Technician Primary Care Provider Specialty: Family Practice Address: [address] [place] [address], [id number] Email: [email or web address] Jaison Jeong PA-C Attending Provider Advanced Light Technician Referring Provider Specialty: Orthopedics Orthopedic Surgery Address: [address] [place] [address], [facility] Email: [email or web address] Plan Of Care PT-OP-B Current Condition Start: 08/16/24 10:12 Freq: Status: Active Protocol: Document 08/23/24 08:45 [facility] (Rec: 08/23/24 09:45 [facility] [id number]) Current Condition History of Current Condition Onset Date worsening past few months Current Complaints B knee pain, LBP History of Current Condition Pt reports started having trouble w/knees about 3 or 4 months ago. She reports it may have been uneven ground carrying something but had so specific injury. Has done some xrays and OA was noted. Then her back gave out started about a month ago and had a lot of pain and was concerned about using pain meds d/t ulcers. Now she is using tylenol daily and does it once a day (650mg in AM) and gabapentin 1x/day and occasionally at night if having difficulty sleeping. By end of the day, seh starts to feels the back . Moving feels better. hx of neck pain pain and arm numbness that has been constant for many years and did do PT for it. Hx of ulcer surgery in 2021. when back pain first started, could only roll out of bed then scoot down the stairs. hx of bypass bariatric surgery (had a 2nd surgery d/t something wrong right after) about 18 years old and 2 c sections and during one of those take a tumor off the uterus. hx of R masectomy and chemo and has had B foot neuropathy since chemo. Has had chronic LBP in the past and has had to be careful. Pt reports she is busy all day long and has 2 flights of stairs and has to up/down often. Also tends chickens outside and does her own yard work and gardening. Does have to do lifting. At night, feels like she has to stretch out so will stretch in the evening. Treatment Goals Patient/Caregiver Goals strengthen knees to avoid TKA for a while longer, strengthen back,be able to reciprocate stairs, improve balance PT-OP-T Assessment and Plan Start: 08/16/24 10:12 Freq: Status: Active Protocol: Document 08/23/24 08:45 [facility] (Rec: 08/23/24 09:45 [facility] [id number]) Physical Therapy Assessment Rehab Potential Rehabilitation Potential Good Evaluation Complexity Number of Personal Factors/Comorbidities 3 or More Number of Body Systems Impaired 4 or More Clinical Presentation at Evaluation Evolving Impairments Impairments Activity Tolerance,Balance, Functional Activities, Functional Mobility,Gait,Pain, Posture,ROM,Soft Tissue Mobility,Strength,Transfers Goals posture Short Term Goal (STG) Pt will score at least 2/5 VCT to show improved postural stability to allow greater ease with upright activities STG Duration 09/28 Senior Living Goal (LTG) Pt will score at least 4/5 VCT to show improved postural stability to allow greater ease with upright activities LTG Duration 10/28 balance Senior Living Goal (LTG) Pt will be able to do SLS 15 sec to show improved balacne LTG Duration 10/28 activity Short Term Goal (STG) Pt will be able to reciprocate up stairs w/o rail w/o pain or feel of LOB STG Duration 09/28 Senior Living Goal (LTG) Pt will be able to reciprocate down stairs w/o rail w/o knee or back pain LTG Duration 10/28 strength Short Term Goal (STG) Pt will be indep w/HEP STG Duration 09/28 Law Office Assistant Goal (LTG) Pt will score at least 4+/5 on all BLE MMT and at least 3/5 LPM to show improved stability to allow greater ease w/daily activties. LTG Duration 12/5 Assessment Summary Assessment Pt presents w/about 1 month ago onset of severe LBP to L leg pain that has improved w/ tylenol and gabapentin use, but has been unable to stop taking these. She had onset of B knee pain about 3 months ago also, which also still limits her. She has recent ( 2021) hx of exploratory surgery with large incision that they ended up finding ulcers to treat. At this time, it appears like this scar tissue limits her mobility in back and may related to her back and knee pain. Her pelvis being uneven likely relates to her bakc and knee pain and does affect her gait mechanics . Pt would benefit from skilled PT to address deficits and improve mobility and decrease pain. Physical Therapy Plan Frequency and Duration Frequency of Treatment 2x/Week Duration of treatment (weeks) 10 Plan of Care Start Date 08/23/24 Plan of Care End Date 11/01/24 Therapeutic Interventions Therapeutic Interventions Balance Training,Gait Training ,Home Exercise Program,Joint Mobilizations,Manual Therapy, Neuromuscular Re-education, Patient/Caregiver Education, Self-Care/Home Management,Soft Tissue Mobilization,Taping, Therapeutic Activities, Therapeutic Exercises Modalities Cold Pack/Ice Massage,Electric Stimulation,Hot Packs, Infrared Therapy,Traction- Mechanical,Ultrasound Next Visit Focus/Plan Next Note Type Treatment Note Next Visit Plan manual: to abdominal scar tissue, innominate and hip correction HEP: sit to stands, bridges, LTR, paloff press and further core work, side steps Plan of Care Dates Plan of Care Start Date 08/23/24 Plan of Care End Date 11/01/24 Electronically Signed by: Maria Fernanda Chawla, PT 08/23/24 [id number] If you are in agreement with this Plan of Care, please return a signed and dated copy. I have reviewed this Plan of Care and certify that the skilled therapy services above are required to meet the patient?s needs. Physician Signature Date Printed Name and Credentials Clinical Instructor Signature Printed Name and Credentials
--- NOTE | 2024-08-28 08:15 | PT.OTN ---
Current Diagnoses Pain in right knee (08/28/24) Pain in left knee (08/28/24) Radiculopathy, lumbar region (08/28/24) Abnormal posture (08/28/24) Weakness (08/28/24) Physical Therapy Treatment Note PT-OP-A Visit Information Start: 08/16/24 10:12 Freq: Status: Active Protocol: Document 08/28/24 07:32 SP (Rec: 08/28/24 08:17 SP [id number]) Out-Patient Physical Therapy Visit Information Visit Information Visit Type Treatment Note Visit Note 01/07 Visit Start Time 07:32 Visit Stop Time 08:15 Visit Number 2 Number of CURLING MACHINE OPERATOR Visits 1 PT-OP-B Current Condition Start: 08/16/24 10:12 Freq: Status: Active Protocol: Document 08/23/24 08:45 [facility] (Rec: 08/23/24 09:45 LR [id number]) Current Condition History of Current Condition Onset Date worsening past few months Current Complaints B knee pain, LBP History of Current Condition Pt reports started having trouble w/knees about 3 or 4 months ago. She reports it may have been uneven ground carrying something but had so specific injury. Has done some xrays and OA was noted. Then her back gave out started about a month ago and had a lot of pain and was concerned about using pain meds d/t ulcers. Now she is using tylenol daily and does it once a day (650mg in AM) and gabapentin 1x/day and occasionally at night if having difficulty sleeping. By end of the day, seh starts to feels the back . Moving feels better. hx of neck pain pain and arm numbness that has been constant for many years and did do PT for it. Hx of ulcer surgery in 2021. when back pain first started, could only roll out of bed then scoot down the stairs. hx of bypass bariatric surgery (had a 2nd surgery d/t something wrong right after) about 18 years old and 2 c sections and during one of those take a tumor off the uterus. hx of R masectomy and chemo and has had B foot neuropathy since chemo. Has had chronic LBP in the past and has had to be careful. Pt reports she is busy all day long and has 2 flights of stairs and has to up/down often. Also tends chickens outside and does her own yard work and gardening. Does have to do lifting. At night, feels like she has to stretch out so will stretch in the evening. Treatment Goals Patient/Caregiver Goals strengthen knees to avoid TKA for a while longer, strengthen back,be able to reciprocate stairs, improve balance PT-OP-C Subjective Start: 08/16/24 10:12 Freq: Status: Active Protocol: Document 08/28/24 07:32 SP (Rec: 08/28/24 08:17 SP [id number]) OP-PT Subjective Patient Comments Patient Comments Pt reports took a s hower and helped warm up her back this am. Her R knee bothering her. She also has shooting pain in archs of her feet and this am noticed bruises on her toes and wondering if some circulation issues. PT-OP-D Balance Start: 08/16/24 10:12 Freq: Status: Active Protocol: Document 08/23/24 08:45 [facility] (Rec: 08/23/24 09:45 [facility] [id number]) Balance Tests Single Limb Standing Single Limb- Right 8 sec Single Limb- Left 7 sec PT-OP-G Mobility & Gait Start: 08/16/24 10:12 Freq: Status: Active Protocol: Document 08/23/24 08:45 [facility] (Rec: 08/23/24 09:45 [facility] [id number]) OP Gait Assessment Comments Gait Comments dec wt acceptance w/LLE w/SB into L trunk w/wt acceptance, dec push off, dec trunk and UE movement Stair Climbing Evaluation Comments Stair Climbing Comments step to down stairs LLE leading and recip up w/rail use both up/down PT-OP-J Posture/Palpation/Skin Start: 08/16/24 10:12 Freq: Status: Active Protocol: Document 08/23/24 08:45 [facility] (Rec: 08/23/24 09:45 [facility] [id number]) Posture Evaluation Wolfgang Postural Classification System Wolfgang Postural Classifications Posterior/Anterior Vertical Compression Test 0 Lumbar Protective Mechanism Left AP 0 Lumbar Protective Mechanism Right AP 0 Lumbar Protective Mechanism Left PA 0 Lumbar Protective Mechanism Right PA 0 Comments Posture Comments L foot turne dout more than R, R shoulder more rounded fwd, R pelvic shear and R turnk rot , R iliac crest higher, equal greater trocahnters PT-OP-K Range of Motion Start: 08/16/24 10:12 Freq: Status: Active Protocol: Document 08/23/24 08:45 [facility] (Rec: 08/23/24 09:45 [facility] [id number]) Lumbar Spine Range of Motion Lumbar Spine Active Percentage Flexion 40 Extension 75 Rotation Left 40 Rotation Right 40 Lateral Flexion Left 75 Lateral Flexion Right 75 Comments feels tight w/rot PT-OP-L Special Tests Start: 08/16/24 10:12 Freq: Status: Active Protocol: Document 08/23/24 08:45 [facility] (Rec: 08/23/24 09:45 [facility] [id number]) Special Tests Lumbar Spine Special Tests Straight Leg Raise Test Results neg about 90 deg B Anuel Test Results positive R RF and quad, L hip flexor Slump Test Results neg B PT-OP-M Strength Start: 08/16/24 10:12 Freq: Status: Active Protocol: Document 08/23/24 08:45 [facility] (Rec: 08/23/24 09:45 [facility] [id number]) Hip Strength Hip Manual Muscle Testing Right Flexion (L2) 3+ Fair+ Extension (S1) 3+ Fair+ Abduction 3+ Fair+ Adduction 4- Good- External Rotation 3+ Fair+ Internal Rotation 3+ Fair+ Left Flexion (L2) 3+ Fair+ Extension (S1) 3+ Fair+ Abduction 3+ Fair+ Adduction 4 Good External Rotation 3+ Fair+ Internal Rotation 3+ Fair+ Knee Strength Knee Manual Muscle Testing Right Flexion (S2) 3+ Fair+ Extension (L3) 4- Good- Left Flexion (S2) 4- Good- Extension (L3) 4- Good- Ankle/Foot Strength Ankle and Foot Manual Muscle Testing Right Dorsiflexion (L4) 5 Normal Plantarflexion (S1) 5 Normal Left Dorsiflexion (L4) 5 Normal Plantarflexion (S1) 5 Normal Comments Pf tested seated PT-OP-Q Treatments Start: 08/16/24 10:12 Freq: Status: Active Protocol: Document 08/28/24 07:32 SP (Rec: 08/28/24 08:17 SP [id number]) Therapeutic Exercises Supine Exercises TA trg Supine Exercise Name TA /c PPT preLTR Resistance tactile cue under pt back Reps/Minutes 5 SH x5 Comments cued neutral spine, level pelvis for core facilitation, tends to lift back LTR Supine Exercise Name 1. QL stretch opp LB 2. TA obliques- added to HEP /c HO Side bilateral Reps/Minutes 1. 20 SH x3 reps 2. Comments 1. cued painfree range gentle QL stretch 2. cued lvl pelvis TA/PPT slow ROM Manual Therapy Treatment Consent Patient gave verbal consent for manual Yes treatment Soft Tissue Mobilization Psoas Mobilization Type Sustained Pressure,Other Body Position Hooklying Comments /c breath, requested feedback pressure comfort. abdominal and C section scar Body Location Dane scar and Rec Abd prox and distal, obilque at ribcage Mobilization Type Myofascial Release,Sustained Pressure,Other Body Position Hooklying Comments /c breath , ed on self application PT-OP-T Assessment and Plan Start: 08/16/24 10:12 Freq: Status: Active Protocol: Document 08/28/24 07:32 SP (Rec: 08/28/24 08:17 SP [id number]) Physical Therapy Assessment Goals posture Short Term Goal (STG) Pt will score at least 2/5 VCT to show improved postural stability to allow greater ease with upright activities STG Duration 09/28 Jail Goal (LTG) Pt will score at least 4/5 VCT to show improved postural stability to allow greater ease with upright activities LTG Duration 10/28 balance Truck Spotter Goal (LTG) Pt will be able to do SLS 15 sec to show improved balacne LTG Duration 10/28 activity Short Term Goal (STG) Pt will be able to reciprocate up stairs w/o rail w/o pain or feel of LOB STG Duration 09/28 Jail Goal (LTG) Pt will be able to reciprocate down stairs w/o rail w/o knee or back pain LTG Duration 10/28 strength Short Term Goal (STG) Pt will be indep w/HEP STG Duration 09/28 Jail Goal (LTG) Pt will score at least 4+/5 on all BLE MMT and at least 3/5 LPM to show improved stability to allow greater ease w/daily activties. LTG Duration 12 Assessment Summary Assessment Pt report increased lumbar mobility post manual. Education provided for self application MFR to improve abdominal tightness reduction. Education HEP lumbar rotation AROM QL stretch and level pelvis with PPT & TA to allow abdominal oblique facilitation improved reduction in lumbar extension. Physical Therapy Plan Frequency and Duration Frequency of Treatment 2x/Week Duration of treatment (weeks) 10 Plan of Care Start Date 08/23/24 Plan of Care End Date 11/01/24 Therapeutic Interventions Therapeutic Interventions Balance Training,Gait Training ,Home Exercise Program,Joint Mobilizations,Manual Therapy, Neuromuscular Re-education, Patient/Caregiver Education, Self-Care/Home Management,Soft Tissue Mobilization,Taping, Therapeutic Activities, Therapeutic Exercises Modalities Cold Pack/Ice Massage,Electric Stimulation,Hot Packs, Infrared Therapy,Traction- Mechanical,Ultrasound Next Visit Focus/Plan Next Note Type Treatment Note Next Visit Plan Recheck LTR HEP initiated POC: manual: to abdominal scar tissue, innominate and hip correction HEP: sit to stands, bridges, LTR, paloff press and further core work, side steps
--- NOTE | 2024-08-30 08:15 | PT.OTN ---
Current Diagnoses Pain in right knee (08/30/24) Pain in left knee (08/30/24) Radiculopathy, lumbar region (08/30/24) Abnormal posture (08/30/24) Weakness (08/30/24) Physical Therapy Treatment Note PT-OP-A Visit Information Start: 08/16/24 10:12 Freq: Status: Active Protocol: Document 08/30/24 07:33 SP (Rec: 08/30/24 08:17 SP [id number]) Out-Patient Physical Therapy Visit Information Visit Information Visit Type Treatment Note Visit Note 02/04 Visit Start Time 07:33 Visit Stop Time 08:15 Visit Number 3 Number of TERMINAL SYSTEM OPERATOR Visits 2 PT-OP-B Current Condition Start: 08/16/24 10:12 Freq: Status: Active Protocol: Document 08/23/24 08:45 LR (Rec: 08/23/24 09:45 LR [id number]) Current Condition History of Current Condition Onset Date worsening past few months Current Complaints B knee pain, LBP History of Current Condition Pt reports started having trouble w/knees about 3 or 4 months ago. She reports it may have been uneven ground carrying something but had so specific injury. Has done some xrays and OA was noted. Then her back gave out started about a month ago and had a lot of pain and was concerned about using pain meds d/t ulcers. Now she is using tylenol daily and does it once a day (650mg in AM) and gabapentin 1x/day and occasionally at night if having difficulty sleeping. By end of the day, seh starts to feels the back . Moving feels better. hx of neck pain pain and arm numbness that has been constant for many years and did do PT for it. Hx of ulcer surgery in 2021. when back pain first started, could only roll out of bed then scoot down the stairs. hx of bypass bariatric surgery (had a 2nd surgery d/t something wrong right after) about 18 years old and 2 c sections and during one of those take a tumor off the uterus. hx of R masectomy and chemo and has had B foot neuropathy since chemo. Has had chronic LBP in the past and has had to be careful. Pt reports she is busy all day long and has 2 flights of stairs and has to up/down often. Also tends chickens outside and does her own yard work and gardening. Does have to do lifting. At night, feels like she has to stretch out so will stretch in the evening. Treatment Goals Patient/Caregiver Goals strengthen knees to avoid TKA for a while longer, strengthen back,be able to reciprocate stairs, improve balance PT-OP-C Subjective Start: 08/16/24 10:12 Freq: Status: Active Protocol: Document 08/30/24 07:33 SP (Rec: 08/30/24 08:17 SP [id number]) OP-PT Subjective Patient Comments Patient Comments Pt reports scar area was sore after last tx but not bad and can see how it may affect how she moves. Noted csection scar bright pink in color. She reports was gardening and irritated her knees so took yesterday to recover. Is compliant with LTR given. Noted slight bruise R foot lalteral corner of 2nd toe and L foot lateral nail of 5th toe. She feels like has gloves on her bilateral feet over the past 2 years since Chemo. She reported L massectomy scar seems less mobile. PT-OP-D Balance Start: 08/16/24 10:12 Freq: Status: Active Protocol: Document 08/23/24 08:45 [facility] (Rec: 08/23/24 09:45 [facility] [id number]) Balance Tests Single Limb Standing Single Limb- Right 8 sec Single Limb- Left 7 sec PT-OP-G Mobility & Gait Start: 08/16/24 10:12 Freq: Status: Active Protocol: Document 08/23/24 08:45 [facility] (Rec: 08/23/24 09:45 [facility] [id number]) OP Gait Assessment Comments Gait Comments dec wt acceptance w/LLE w/SB into L trunk w/wt acceptance, dec push off, dec trunk and UE movement Stair Climbing Evaluation Comments Stair Climbing Comments step to down stairs LLE leading and recip up w/rail use both up/down PT-OP-J Posture/Palpation/Skin Start: 08/16/24 10:12 Freq: Status: Active Protocol: Document 08/23/24 08:45 [facility] (Rec: 08/23/24 09:45 [facility] [id number]) Posture Evaluation Wolfgang Postural Classification System Wolfgang Postural Classifications Posterior/Anterior Vertical Compression Test 0 Lumbar Protective Mechanism Left AP 0 Lumbar Protective Mechanism Right AP 0 Lumbar Protective Mechanism Left PA 0 Lumbar Protective Mechanism Right PA 0 Comments Posture Comments L foot turne dout more than R, R shoulder more rounded fwd, R pelvic shear and R turnk rot , R iliac crest higher, equal greater trocahnters PT-OP-K Range of Motion Start: 08/16/24 10:12 Freq: Status: Active Protocol: Document 08/23/24 08:45 [facility] (Rec: 08/23/24 09:45 [facility] [id number]) Lumbar Spine Range of Motion Lumbar Spine Active Percentage Flexion 40 Extension 75 Rotation Left 40 Rotation Right 40 Lateral Flexion Left 75 Lateral Flexion Right 75 Comments feels tight w/rot PT-OP-L Special Tests Start: 08/16/24 10:12 Freq: Status: Active Protocol: Document 08/23/24 08:45 [facility] (Rec: 08/23/24 09:45 [facility] [id number]) Special Tests Lumbar Spine Special Tests Straight Leg Raise Test Results neg about 90 deg B Anuel Test Results positive R RF and quad, L hip flexor Slump Test Results neg B PT-OP-M Strength Start: 08/16/24 10:12 Freq: Status: Active Protocol: Document 08/23/24 08:45 [facility] (Rec: 08/23/24 09:45 [facility] [id number]) Hip Strength Hip Manual Muscle Testing Right Flexion (L2) 3+ Fair+ Extension (S1) 3+ Fair+ Abduction 3+ Fair+ Adduction 4- Good- External Rotation 3+ Fair+ Internal Rotation 3+ Fair+ Left Flexion (L2) 3+ Fair+ Extension (S1) 3+ Fair+ Abduction 3+ Fair+ Adduction 4 Good External Rotation 3+ Fair+ Internal Rotation 3+ Fair+ Knee Strength Knee Manual Muscle Testing Right Flexion (S2) 3+ Fair+ Extension (L3) 4- Good- Left Flexion (S2) 4- Good- Extension (L3) 4- Good- Ankle/Foot Strength Ankle and Foot Manual Muscle Testing Right Dorsiflexion (L4) 5 Normal Plantarflexion (S1) 5 Normal Left Dorsiflexion (L4) 5 Normal Plantarflexion (S1) 5 Normal Comments Pf tested seated PT-OP-Q Treatments Start: 08/16/24 10:12 Freq: Status: Active Protocol: Document 08/30/24 07:33 SP (Rec: 08/30/24 08:17 SP [id number]) Therapeutic Exercises Supine Exercises bridge Supine Exercise Name segmental bridge- added to HEP /c HO Reps/Minutes 3-5 SH Comments good form, reduction LB recruitment Anuel stretch Supine Exercise Name initiated in PT- added to HEP /c HO Side bilateral Equipment Used /c opp LE KTC Reps/Minutes 30-60 Comments 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, good feedback hip flexor and quad stretch HS stretch /c AP Supine Exercise Name trialed in PT Side bilateral Reps/Minutes x10 APs TA trg Supine Exercise Name TA /c PPT preLTR Resistance tactile cue under pt back Reps/Minutes 5 SH x5 Comments cued neutral spine, level pelvis for core facilitation LTR Supine Exercise Name TA obliques- HEP reviewed Side bilateral Equipment Used hands under pelvis for self feedback keep level Reps/Minutes 2 SH x10 Comments cued lvl pelvis TA/PPT slow ROM Manual Therapy Treatment Soft Tissue Mobilization abdominal and C section scar Body Location Dane scar and Rec Abd prox and distal, obilque at inferior ribcage Mobilization Type Myofascial Release Body Position Hooklying Comments Noted pink skin above c- section scar possible from prior tx with reports soreness . Gentle light MF glides /c breath and adjustment in pressure feedback from pt Joint Mobilizations B ankle Joint talocrual PA B knee Joint B tib fib, tib femoral Direction P<>A PT-OP-T Assessment and Plan Start: 08/16/24 10:12 Freq: Status: Active Protocol: Document 08/30/24 07:33 SP (Rec: 08/30/24 08:17 SP [id number]) Physical Therapy Assessment Goals posture Short Term Goal (STG) Pt will score at least 2/5 VCT to show improved postural stability to allow greater ease with upright activities STG Duration 09/28 Ruling Technician Goal (LTG) Pt will score at least 4/5 VCT to show improved postural stability to allow greater ease with upright activities LTG Duration 10/28 balance Custodial Goal (LTG) Pt will be able to do SLS 15 sec to show improved balacne LTG Duration 12 activity Short Term Goal (STG) Pt will be able to reciprocate up stairs w/o rail w/o pain or feel of LOB STG Duration 09/28 Custodial Goal (LTG) Pt will be able to reciprocate down stairs w/o rail w/o knee or back pain LTG Duration 10/28 strength Short Term Goal (STG) Pt will be indep w/HEP STG Duration 09/28 Ruling Technician Goal (LTG) Pt will score at least 4+/5 on all BLE MMT and at least 3/5 LPM to show improved stability to allow greater ease w/daily activties. LTG Duration 11/01 Assessment Summary Assessment Pt level pelvis at arrival. Pt good tolerance and feedback for adjustments in pressure manual. Initiated Anuel stretch for quad and hip flexor mobility with good feedback stretch response reported and incorporated segmental bridge for core hip mobility with improvement in form after cues for segmental lift and lower with slow pacing. Physical Therapy Plan Frequency and Duration Frequency of Treatment 2x/Week Duration of treatment (weeks) 10 Plan of Care Start Date 08/23/24 Plan of Care End Date 11/01/24 Therapeutic Interventions Therapeutic Interventions Balance Training,Gait Training ,Home Exercise Program,Joint Mobilizations,Manual Therapy, Neuromuscular Re-education, Patient/Caregiver Education, Self-Care/Home Management,Soft Tissue Mobilization,Taping, Therapeutic Activities, Therapeutic Exercises Modalities Cold Pack/Ice Massage,Electric Stimulation,Hot Packs, Infrared Therapy,Traction- Mechanical,Ultrasound Next Visit Focus/Plan Next Note Type Treatment Note Next Visit Plan Recheck LTR and supine HEP initiated. POC: manual: to abdominal scar tissue, innominate and hip correction Suggested HEP: sit to stands, bridges, LTR, paloff press and further core work, side steps
--- NOTE | 2024-09-03 09:42 | PT.OTN ---
Current Diagnoses Pain in right knee (09/03/24) Pain in left knee (09/03/24) Radiculopathy, lumbar region (09/03/24) Abnormal posture (09/03/24) Weakness (09/03/24) Physical Therapy Treatment Note PT-OP-A Visit Information Start: 08/16/24 10:12 Freq: Status: Active Protocol: Document 09/03/24 09:02 SP (Rec: 09/03/24 09:51 SP [id number]) Out-Patient Physical Therapy Visit Information Visit Information Visit Type Treatment Note Visit Note 03/07 Visit Start Time 09:02 Visit Stop Time 09:42 Visit Number 4 Number of COMPLETION ENGINEER Visits 3 PT-OP-B Current Condition Start: 08/16/24 10:12 Freq: Status: Active Protocol: Document 08/23/24 08:45 LR (Rec: 08/23/24 09:45 LR [id number]) Current Condition History of Current Condition Onset Date worsening past few months Current Complaints B knee pain, LBP History of Current Condition Pt reports started having trouble w/knees about 3 or 4 months ago. She reports it may have been uneven ground carrying something but had so specific injury. Has done some xrays and OA was noted. Then her back gave out started about a month ago and had a lot of pain and was concerned about using pain meds d/t ulcers. Now she is using tylenol daily and does it once a day (650mg in AM) and gabapentin 1x/day and occasionally at night if having difficulty sleeping. By end of the day, seh starts to feels the back . Moving feels better. hx of neck pain pain and arm numbness that has been constant for many years and did do PT for it. Hx of ulcer surgery in 2021. when back pain first started, could only roll out of bed then scoot down the stairs. hx of bypass bariatric surgery (had a 2nd surgery d/t something wrong right after) about 18 years old and 2 c sections and during one of those take a tumor off the uterus. hx of R masectomy and chemo and has had B foot neuropathy since chemo. Has had chronic LBP in the past and has had to be careful. Pt reports she is busy all day long and has 2 flights of stairs and has to up/down often. Also tends chickens outside and does her own yard work and gardening. Does have to do lifting. At night, feels like she has to stretch out so will stretch in the evening. Treatment Goals Patient/Caregiver Goals strengthen knees to avoid TKA for a while longer, strengthen back,be able to reciprocate stairs, improve balance PT-OP-C Subjective Start: 08/16/24 10:12 Freq: Status: Active Protocol: Document 09/03/24 09:02 SP (Rec: 09/03/24 09:51 SP [id number]) OP-PT Subjective Patient Comments Patient Comments Pt reports feels the manual is helping in her trunk/pelvis mobility. She stated doesn't have the bed height at home as table in here for Anuel stretch. She stated tried to go without Tylenol but hurts her knees. Does have spasms during Anuel stretch into upper/mid back. PT-OP-D Balance Start: 08/16/24 10:12 Freq: Status: Active Protocol: Document 08/23/24 08:45 [facility] (Rec: 08/23/24 09:45 [facility] [id number]) Balance Tests Single Limb Standing Single Limb- Right 8 sec Single Limb- Left 7 sec PT-OP-G Mobility & Gait Start: 08/16/24 10:12 Freq: Status: Active Protocol: Document 08/23/24 08:45 [facility] (Rec: 08/23/24 09:45 [facility] [id number]) OP Gait Assessment Comments Gait Comments dec wt acceptance w/LLE w/SB into L trunk w/wt acceptance, dec push off, dec trunk and UE movement Stair Climbing Evaluation Comments Stair Climbing Comments step to down stairs LLE leading and recip up w/rail use both up/down PT-OP-J Posture/Palpation/Skin Start: 08/16/24 10:12 Freq: Status: Active Protocol: Document 08/23/24 08:45 [facility] (Rec: 08/23/24 09:45 [facility] [id number]) Posture Evaluation Wolfgang Postural Classification System Wolfgang Postural Classifications Posterior/Anterior Vertical Compression Test 0 Lumbar Protective Mechanism Left AP 0 Lumbar Protective Mechanism Right AP 0 Lumbar Protective Mechanism Left PA 0 Lumbar Protective Mechanism Right PA 0 Comments Posture Comments L foot turne dout more than R, R shoulder more rounded fwd, R pelvic shear and R turnk rot , R iliac crest higher, equal greater trocahnters PT-OP-K Range of Motion Start: 08/16/24 10:12 Freq: Status: Active Protocol: Document 08/23/24 08:45 [facility] (Rec: 08/23/24 09:45 [facility] [id number]) Lumbar Spine Range of Motion Lumbar Spine Active Percentage Flexion 40 Extension 75 Rotation Left 40 Rotation Right 40 Lateral Flexion Left 75 Lateral Flexion Right 75 Comments feels tight w/rot PT-OP-L Special Tests Start: 08/16/24 10:12 Freq: Status: Active Protocol: Document 08/23/24 08:45 [facility] (Rec: 08/23/24 09:45 [facility] [id number]) Special Tests Lumbar Spine Special Tests Straight Leg Raise Test Results neg about 90 deg B Anuel Test Results positive R RF and quad, L hip flexor Slump Test Results neg B PT-OP-M Strength Start: 08/16/24 10:12 Freq: Status: Active Protocol: Document 08/23/24 08:45 [facility] (Rec: 08/23/24 09:45 [facility] [id number]) Hip Strength Hip Manual Muscle Testing Right Flexion (L2) 3+ Fair+ Extension (S1) 3+ Fair+ Abduction 3+ Fair+ Adduction 4- Good- External Rotation 3+ Fair+ Internal Rotation 3+ Fair+ Left Flexion (L2) 3+ Fair+ Extension (S1) 3+ Fair+ Abduction 3+ Fair+ Adduction 4 Good External Rotation 3+ Fair+ Internal Rotation 3+ Fair+ Knee Strength Knee Manual Muscle Testing Right Flexion (S2) 3+ Fair+ Extension (L3) 4- Good- Left Flexion (S2) 4- Good- Extension (L3) 4- Good- Ankle/Foot Strength Ankle and Foot Manual Muscle Testing Right Dorsiflexion (L4) 5 Normal Plantarflexion (S1) 5 Normal Left Dorsiflexion (L4) 5 Normal Plantarflexion (S1) 5 Normal Comments Pf tested seated PT-OP-Q Treatments Start: 08/16/24 10:12 Freq: Status: Active Protocol: Document 09/03/24 09:02 SP (Rec: 09/03/24 09:51 SP [id number]) Therapeutic Exercises Supine Exercises Piriformis Stretch Supine Exercise Name added to HEP /c HO Side bilateral Resistance leg over opp bent knee, pulled toward opp shld Reps/Minutes 30 x2 each LE Comments good feedback buttocks stretch , 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 4 Supine Exercise Name added to HEP /c HO Side bilateral Resistance R ankle over L knee, L foot inside R thigh Reps/Minutes 30 x2 each LE Comments cued PPT for spinal support, no LB recruitment bridge Supine Exercise Name segmental bridge Reps/Minutes 5 SH x10 Comments good form, reduction LB recruitment Anuel stretch Supine Exercise Name reviewed Side bilateral Equipment Used /c opp LE KTC Reps/Minutes 30-60 Comments Cued pressing LB into table for PPT- improved no LB recruitment, better str HS stretch /c AP Supine Exercise Name added to HEP /c HO Side bilateral Equipment Used grasp behind thigh, opp LE straight Reps/Minutes x10 APs Comments cued PPT, CHARM FILTER OPERATOR HELPER Sitting Exercises TA STS Sitting Exercise Name intiated TA with neutral pelvis during assess sit<> stand Reps/Minutes x5 reps Comments cued TA and CHARM FILTER OPERATOR HELPER asc/descend sit for spinal support. Manual Therapy Treatment Consent Patient gave verbal consent for manual Yes treatment Soft Tissue Mobilization legs Body Location B quad, ITB, TFL, peroneals Mobilization Type Myofascial Release,Rolling, Sustained Pressure,Other Body Position Hooklying Comments MF glides MWM peroneals /c APs Psoas Mobilization Type Sustained Pressure,Other Body Position Hooklying Comments /c breath abdominal and C section scar Body Location Dane scar and Rec Abd prox and distal, obilque at inferior ribcage L>R Mobilization Type Myofascial Release Body Position Hooklying Comments Gentle light MF glides /c breath and adjustment in pressure feedback from pt PT-OP-T Assessment and Plan Start: 08/16/24 10:12 Freq: Status: Active Protocol: Document 09/03/24 09:02 [facility] (Rec: 09/03/24 09:51 SP [id number]) Physical Therapy Assessment Goals posture Short Term Goal (STG) Pt will score at least 2/5 VCT to show improved postural stability to allow greater ease with upright activities STG Duration 09/28 Detention Goal (LTG) Pt will score at least 4/5 VCT to show improved postural stability to allow greater ease with upright activities LTG Duration 10/28 balance Candy Feeder Goal (LTG) Pt will be able to do SLS 15 sec to show improved balacne LTG Duration 10/28 activity Short Term Goal (STG) Pt will be able to reciprocate up stairs w/o rail w/o pain or feel of LOB STG Duration 09/28 Candy Feeder Goal (LTG) Pt will be able to reciprocate down stairs w/o rail w/o knee or back pain LTG Duration 10/28 strength Short Term Goal (STG) Pt will be indep w/HEP STG Duration 09/28 Candy Feeder Goal (LTG) Pt will score at least 4+/5 on all BLE MMT and at least 3/5 LPM to show improved stability to allow greater ease w/daily activties. LTG Duration 11/01 Assessment Summary Assessment Pt responds well to manual, decreased sensitivity over C- section scar today and improvement in light pink vs dark pink last tx. Pt reports manual and stretching helping in decreased anterior thigh, hip and abdominal tightness. Progressed further hip flexibility with good feedback this feels good response: added piriformis, fig 4 and changed HS /c AP grasp behind thigh. Initiated TA /c neutral pelvis during STS for improved back and abdiminal engagement transfers with reports doesn't hurt back but does feel it in her knees so limited reps. Pt would benefit from continued core and LE strengthening next tx. Physical Therapy Plan Frequency and Duration Frequency of Treatment 2x/Week Duration of treatment (weeks) 10 Plan of Care Start Date 08/23/24 Plan of Care End Date 11/01/24 Therapeutic Interventions Therapeutic Interventions Balance Training,Gait Training ,Home Exercise Program,Joint Mobilizations,Manual Therapy, Neuromuscular Re-education, Patient/Caregiver Education, Self-Care/Home Management,Soft Tissue Mobilization,Taping, Therapeutic Activities, Therapeutic Exercises Modalities Cold Pack/Ice Massage,Electric Stimulation,Hot Packs, Infrared Therapy,Traction- Mechanical,Ultrasound Next Visit Focus/Plan Next Note Type Treatment Note Next Visit Plan Recheck HEP. Progress core and LE strengthening next tx. POC: manual: to abdominal scar tissue, innominate and hip correction Suggested HEP: sit to stands, bridges, LTR, paloff press and further core work, side steps
--- NOTE | 2024-09-06 09:24 | PT.OTN ---
Current Diagnoses Pain in right knee (09/06/24) Pain in left knee (09/06/24) Radiculopathy, lumbar region (09/06/24) Abnormal posture (09/06/24) Weakness (09/06/24) Physical Therapy Treatment Note PT-OP-A Visit Information Start: 08/16/24 10:12 Freq: Status: Active Protocol: Document 09/06/24 08:13 [facility] (Rec: 09/06/24 09:23 [facility] [id number]) Out-Patient Physical Therapy Visit Information Visit Information Visit Type Treatment Note Visit Note 04/06 Visit Start Time 08:16 Visit Stop Time 09:01 Visit Number 5 Number of INSPECTOR [employer] BOARDS Visits 0 PT-OP-B Current Condition Start: 08/16/24 10:12 Freq: Status: Active Protocol: Document 08/23/24 08:45 [facility] (Rec: 08/23/24 09:45 [facility] [id number]) Current Condition History of Current Condition Onset Date worsening past few months Current Complaints B knee pain, LBP History of Current Condition Pt reports started having trouble w/knees about 3 or 4 months ago. She reports it may have been uneven ground carrying something but had so specific injury. Has done some xrays and OA was noted. Then her back gave out started about a month ago and had a lot of pain and was concerned about using pain meds d/t ulcers. Now she is using tylenol daily and does it once a day (650mg in AM) and gabapentin 1x/day and occasionally at night if having difficulty sleeping. By end of the day, seh starts to feels the back . Moving feels better. hx of neck pain pain and arm numbness that has been constant for many years and did do PT for it. Hx of ulcer surgery in 2021. when back pain first started, could only roll out of bed then scoot down the stairs. hx of bypass bariatric surgery (had a 2nd surgery d/t something wrong right after) about 18 years old and 2 c sections and during one of those take a tumor off the uterus. hx of R masectomy and chemo and has had B foot neuropathy since chemo. Has had chronic LBP in the past and has had to be careful. Pt reports she is busy all day long and has 2 flights of stairs and has to up/down often. Also tends chickens outside and does her own yard work and gardening. Does have to do lifting. At night, feels like she has to stretch out so will stretch in the evening. Treatment Goals Patient/Caregiver Goals strengthen knees to avoid TKA for a while longer, strengthen back,be able to reciprocate stairs, improve balance PT-OP-C Subjective Start: 08/16/24 10:12 Freq: Status: Active Protocol: Document 09/06/24 08:13 [facility] (Rec: 09/06/24 09:23 [facility] [id number]) OP-PT Subjective Patient Comments Patient Comments Pt reports R>L knee have been bothering her most recently. Some upper back inc discomfort recently too. PT-OP-D Balance Start: 08/16/24 10:12 Freq: Status: Active Protocol: Document 08/23/24 08:45 [facility] (Rec: 08/23/24 09:45 [facility] [id number]) Balance Tests Single Limb Standing Single Limb- Right 8 sec Single Limb- Left 7 sec PT-OP-G Mobility & Gait Start: 08/16/24 10:12 Freq: Status: Active Protocol: Document 08/23/24 08:45 [facility] (Rec: 08/23/24 09:45 [facility] [id number]) OP Gait Assessment Comments Gait Comments dec wt acceptance w/LLE w/SB into L trunk w/wt acceptance, dec push off, dec trunk and UE movement Stair Climbing Evaluation Comments Stair Climbing Comments step to down stairs LLE leading and recip up w/rail use both up/down PT-OP-J Posture/Palpation/Skin Start: 08/16/24 10:12 Freq: Status: Active Protocol: Document 08/23/24 08:45 [facility] (Rec: 08/23/24 09:45 [facility] [id number]) Posture Evaluation Wolfgang Postural Classification System Wolfgang Postural Classifications Posterior/Anterior Vertical Compression Test 0 Lumbar Protective Mechanism Left AP 0 Lumbar Protective Mechanism Right AP 0 Lumbar Protective Mechanism Left PA 0 Lumbar Protective Mechanism Right PA 0 Comments Posture Comments L foot turne dout more than R, R shoulder more rounded fwd, R pelvic shear and R turnk rot , R iliac crest higher, equal greater trocahnters PT-OP-K Range of Motion Start: 08/16/24 10:12 Freq: Status: Active Protocol: Document 08/23/24 08:45 [facility] (Rec: 08/23/24 09:45 [facility] [id number]) Lumbar Spine Range of Motion Lumbar Spine Active Percentage Flexion 40 Extension 75 Rotation Left 40 Rotation Right 40 Lateral Flexion Left 75 Lateral Flexion Right 75 Comments feels tight w/rot PT-OP-L Special Tests Start: 08/16/24 10:12 Freq: Status: Active Protocol: Document 08/23/24 08:45 [facility] (Rec: 08/23/24 09:45 [facility] [id number]) Special Tests Lumbar Spine Special Tests Straight Leg Raise Test Results neg about 90 deg B Anuel Test Results positive R RF and quad, L hip flexor Slump Test Results neg B PT-OP-M Strength Start: 08/16/24 10:12 Freq: Status: Active Protocol: Document 08/23/24 08:45 [facility] (Rec: 08/23/24 09:45 [facility] [id number]) Hip Strength Hip Manual Muscle Testing Right Flexion (L2) 3+ Fair+ Extension (S1) 3+ Fair+ Abduction 3+ Fair+ Adduction 4- Good- External Rotation 3+ Fair+ Internal Rotation 3+ Fair+ Left Flexion (L2) 3+ Fair+ Extension (S1) 3+ Fair+ Abduction 3+ Fair+ Adduction 4 Good External Rotation 3+ Fair+ Internal Rotation 3+ Fair+ Knee Strength Knee Manual Muscle Testing Right Flexion (S2) 3+ Fair+ Extension (L3) 4- Good- Left Flexion (S2) 4- Good- Extension (L3) 4- Good- Ankle/Foot Strength Ankle and Foot Manual Muscle Testing Right Dorsiflexion (L4) 5 Normal Plantarflexion (S1) 5 Normal Left Dorsiflexion (L4) 5 Normal Plantarflexion (S1) 5 Normal Comments Pf tested seated PT-OP-Q Treatments Start: 08/16/24 10:12 Freq: Status: Active Protocol: Document 09/06/24 08:13 [facility] (Rec: 09/06/24 09:23 [facility] [id number]) Therapeutic Exercises Supine Exercises bridge Supine Exercise Name segmental bridge Equipment Used L2 at knees Reps/Minutes 10 sec x5 Comments good form, reduction LB recruitment Sidelying Exercises open book Side bilateral Reps/Minutes 5 Comments cues for motion clamshell Sidelying Exercise Name HEP Side bilateral Resistance L2 Reps/Minutes 15 Sitting Exercises TA STS Sitting Exercise Name from lowest height far table Equipment Used L2 at knees Reps/Minutes 10 Comments cues knees apart Standing Exercises sidesteps Standing Exercise Name HEP Side bilateral Equipment Used L2 at knees, L3 at knees Reps/Minutes 20ft ea resistance Comments tried at ankle but pain in knees Manual Therapy Treatment Consent Patient gave verbal consent for manual Yes treatment Soft Tissue Mobilization legs Body Location R quad, ITB, patellar tendon, add Mobilization Type Myofascial Release,Rolling, Sustained Pressure Joint Mobilizations B knee Comments 1. R Patellofemoral sup, inf, med 2. AP tibia w/c/r flex PT-OP-T Assessment and Plan Start: 08/16/24 10:12 Freq: Status: Active Protocol: Document 09/06/24 08:13 [facility] (Rec: 09/06/24 09:23 [facility] [id number]) Physical Therapy Assessment Goals posture Short Term Goal (STG) Pt will score at least 2/5 VCT to show improved postural stability to allow greater ease with upright activities STG Duration 09/28 Half-Way Goal (LTG) Pt will score at least 4/5 VCT to show improved postural stability to allow greater ease with upright activities LTG Duration 10/28 balance Integrity Analyst Goal (LTG) Pt will be able to do SLS 15 sec to show improved balacne LTG Duration 10/28 activity Short Term Goal (STG) Pt will be able to reciprocate up stairs w/o rail w/o pain or feel of LOB STG Duration 09/28 Half-Way Goal (LTG) Pt will be able to reciprocate down stairs w/o rail w/o knee or back pain LTG Duration 10/28 strength Short Term Goal (STG) Pt will be indep w/HEP STG Duration 09/28 Integrity Analyst Goal (LTG) Pt will score at least 4+/5 on all BLE MMT and at least 3/5 LPM to show improved stability to allow greater ease w/daily activties. LTG Duration 12 Assessment Summary Assessment Pt had improved knee ext in standing and supine after manual and improved knee flex in supine w/greater ease with sit to stand after manual to R knee. DId well with exercises , unable to do SL bridge yet but was able to add band for more difficulty Physical Therapy Plan Frequency and Duration Frequency of Treatment 2x/Week Duration of treatment (weeks) 10 Plan of Care Start Date 08/23/24 Plan of Care End Date 11/01/24 Next Visit Focus/Plan Next Note Type Treatment Note Next Visit Plan Work on knee and hip mobility and ankle mobility to improve knee tracking and pain. check pt tolerance to tape and try taping B knees for dec pain; recheck new exercises
--- NOTE | 2024-09-18 09:02 | PT.OTN ---
Current Diagnoses Pain in right knee (09/18/24) Pain in left knee (09/18/24) Radiculopathy, lumbar region (09/18/24) Abnormal posture (09/18/24) Weakness (09/18/24) Physical Therapy Treatment Note PT-OP-A Visit Information Start: 08/16/24 10:12 Freq: Status: Active Protocol: Document 09/18/24 08:18 [facility] (Rec: 09/18/24 09:07 [facility] [id number]) Out-Patient Physical Therapy Visit Information Visit Information Visit Type Treatment Note Visit Note 05/07 Visit Start Time 08:18 Visit Stop Time 09:02 Visit Number 6 Number of WIRELESS SALES REPRESENTATIVE Visits 1 PT-OP-B Current Condition Start: 08/16/24 10:12 Freq: Status: Active Protocol: Document 08/23/24 08:45 [facility] (Rec: 08/23/24 09:45 [facility] [id number]) Current Condition History of Current Condition Onset Date worsening past few months Current Complaints B knee pain, LBP History of Current Condition Pt reports started having trouble w/knees about 3 or 4 months ago. She reports it may have been uneven ground carrying something but had so specific injury. Has done some xrays and OA was noted. Then her back gave out started about a month ago and had a lot of pain and was concerned about using pain meds d/t ulcers. Now she is using tylenol daily and does it once a day (650mg in AM) and gabapentin 1x/day and occasionally at night if having difficulty sleeping. By end of the day, seh starts to feels the back . Moving feels better. hx of neck pain pain and arm numbness that has been constant for many years and did do PT for it. Hx of ulcer surgery in 2021. when back pain first started, could only roll out of bed then scoot down the stairs. hx of bypass bariatric surgery (had a 2nd surgery d/t something wrong right after) about 18 years old and 2 c sections and during one of those take a tumor off the uterus. hx of R masectomy and chemo and has had B foot neuropathy since chemo. Has had chronic LBP in the past and has had to be careful. Pt reports she is busy all day long and has 2 flights of stairs and has to up/down often. Also tends chickens outside and does her own yard work and gardening. Does have to do lifting. At night, feels like she has to stretch out so will stretch in the evening. Treatment Goals Patient/Caregiver Goals strengthen knees to avoid TKA for a while longer, strengthen back,be able to reciprocate stairs, improve balance PT-OP-C Subjective Start: 08/16/24 10:12 Freq: Status: Active Protocol: Document 09/18/24 08:18 [facility] (Rec: 09/18/24 09:07 [facility] [id number]) OP-PT Subjective Patient Comments Patient Comments Pt reports performing pelvic tuck and helping on stairs and moving around in bed and feels is helping support her back, not feeling at much but her knees still bothersome. PT-OP-D Balance Start: 08/16/24 10:12 Freq: Status: Active Protocol: Document 08/23/24 08:45 [facility] (Rec: 08/23/24 09:45 [facility] [id number]) Balance Tests Single Limb Standing Single Limb- Right 8 sec Single Limb- Left 7 sec PT-OP-G Mobility & Gait Start: 08/16/24 10:12 Freq: Status: Active Protocol: Document 08/23/24 08:45 [facility] (Rec: 08/23/24 09:45 [facility] [id number]) OP Gait Assessment Comments Gait Comments dec wt acceptance w/LLE w/SB into L trunk w/wt acceptance, dec push off, dec trunk and UE movement Stair Climbing Evaluation Comments Stair Climbing Comments step to down stairs LLE leading and recip up w/rail use both up/down PT-OP-J Posture/Palpation/Skin Start: 08/16/24 10:12 Freq: Status: Active Protocol: Document 08/23/24 08:45 [facility] (Rec: 08/23/24 09:45 [facility] [id number]) Posture Evaluation Wolfgang Postural Classification System Wolfgang Postural Classifications Posterior/Anterior Vertical Compression Test 0 Lumbar Protective Mechanism Left AP 0 Lumbar Protective Mechanism Right AP 0 Lumbar Protective Mechanism Left PA 0 Lumbar Protective Mechanism Right PA 0 Comments Posture Comments L foot turne dout more than R, R shoulder more rounded fwd, R pelvic shear and R turnk rot , R iliac crest higher, equal greater trocahnters PT-OP-K Range of Motion Start: 08/16/24 10:12 Freq: Status: Active Protocol: Document 08/23/24 08:45 [facility] (Rec: 08/23/24 09:45 [facility] [id number]) Lumbar Spine Range of Motion Lumbar Spine Active Percentage Flexion 40 Extension 75 Rotation Left 40 Rotation Right 40 Lateral Flexion Left 75 Lateral Flexion Right 75 Comments feels tight w/rot PT-OP-L Special Tests Start: 08/16/24 10:12 Freq: Status: Active Protocol: Document 08/23/24 08:45 [facility] (Rec: 08/23/24 09:45 [facility] [id number]) Special Tests Lumbar Spine Special Tests Straight Leg Raise Test Results neg about 90 deg B Anuel Test Results positive R RF and quad, L hip flexor Slump Test Results neg B PT-OP-M Strength Start: 08/16/24 10:12 Freq: Status: Active Protocol: Document 08/23/24 08:45 [facility] (Rec: 08/23/24 09:45 [facility] [id number]) Hip Strength Hip Manual Muscle Testing Right Flexion (L2) 3+ Fair+ Extension (S1) 3+ Fair+ Abduction 3+ Fair+ Adduction 4- Good- External Rotation 3+ Fair+ Internal Rotation 3+ Fair+ Left Flexion (L2) 3+ Fair+ Extension (S1) 3+ Fair+ Abduction 3+ Fair+ Adduction 4 Good External Rotation 3+ Fair+ Internal Rotation 3+ Fair+ Knee Strength Knee Manual Muscle Testing Right Flexion (S2) 3+ Fair+ Extension (L3) 4- Good- Left Flexion (S2) 4- Good- Extension (L3) 4- Good- Ankle/Foot Strength Ankle and Foot Manual Muscle Testing Right Dorsiflexion (L4) 5 Normal Plantarflexion (S1) 5 Normal Left Dorsiflexion (L4) 5 Normal Plantarflexion (S1) 5 Normal Comments Pf tested seated PT-OP-Q Treatments Start: 08/16/24 10:12 Freq: Status: Active Protocol: Document 09/18/24 08:18 [facility] (Rec: 09/18/24 09:07 [facility] [id number]) Therapeutic Exercises Supine Exercises bridge Supine Exercise Name segmental bridge Equipment Used L2 at knees Reps/Minutes 10 sec x8 Comments good form, no LB recruitment, cued higher if tolerant Sidelying Exercises clamshell Sidelying Exercise Name HEP Side bilateral Resistance L2 at distal thighs Reps/Minutes 15 (hold 3 SH) Comments good form and pacing Standing Exercises sidesteps Standing Exercise Name Lateral, forward, backward Side bilateral Equipment Used L3 at knees Reps/Minutes 20ft ea resistance x3 laps each Comments cued PPT pelvic tuck with TA- pnfree Manual Therapy Treatment Consent Patient gave verbal consent for manual Yes treatment Soft Tissue Mobilization legs Body Location R>L quad, ITB, patellar tendon Mobilization Type Myofascial Release,Rolling, Sustained Pressure Comments manual and self application manual and use rolling pin Joint Mobilizations B knee Comments 1. R Patellofemoral sup, inf, med 2. AP tibia w/c/r flex Ed and hand over hand for self application long sitting Taping Ktaping Body Location B fat pad and med/lat patellar stability Treatment Focus patellar tendon and patellar stability Type of Tape Kinesio Tape Comments manual and education how to Ktape, pt purchased and will continue home with pic taken with her phone. PT-OP-T Assessment and Plan Start: 08/16/24 10:12 Freq: Status: Active Protocol: Document 09/18/24 08:18 [facility] (Rec: 09/18/24 09:07 [facility] [id number]) Physical Therapy Assessment Goals posture Short Term Goal (STG) Pt will score at least 2/5 VCT to show improved postural stability to allow greater ease with upright activities STG Duration 09/28 Fpc Goal (LTG) Pt will score at least 4/5 VCT to show improved postural stability to allow greater ease with upright activities LTG Duration 10/28 balance Fpc Goal (LTG) Pt will be able to do SLS 15 sec to show improved balacne LTG Duration 10/28 activity Short Term Goal (STG) Pt will be able to reciprocate up stairs w/o rail w/o pain or feel of LOB STG Duration 09/28 Nurse Intern Goal (LTG) Pt will be able to reciprocate down stairs w/o rail w/o knee or back pain LTG Duration 10/28 strength Short Term Goal (STG) Pt will be indep w/HEP STG Duration 09/28 Nurse Intern Goal (LTG) Pt will score at least 4+/5 on all BLE MMT and at least 3/5 LPM to show improved stability to allow greater ease w/daily activties. LTG Duration 12 Assessment Summary Assessment Pt good feedback response to manual, reports decreased knee tightness and good understanding of how to apply manual and Ktaping. Cues for slower pacing reps and longer hold during resisted bridge and clamshells improved TA control and progress strengthening. No pain with continued progression resistance band walk on LB. Cues for more TKE and less knee flexed B kneed descending for quad support, still little discomfort and instabiltiy need light rail support. Physical Therapy Plan Frequency and Duration Frequency of Treatment 2x/Week Duration of treatment (weeks) 10 Plan of Care Start Date 08/23/24 Plan of Care End Date 11/01/24 Therapeutic Interventions Therapeutic Interventions Balance Training,Gait Training ,Home Exercise Program,Joint Mobilizations,Manual Therapy, Neuromuscular Re-education, Patient/Caregiver Education, Self-Care/Home Management,Soft Tissue Mobilization,Taping, Therapeutic Activities, Therapeutic Exercises Modalities Cold Pack/Ice Massage,Electric Stimulation,Hot Packs, Infrared Therapy,Traction- Mechanical,Ultrasound Next Visit Focus/Plan Next Note Type Treatment Note Next Visit Plan Work on knee and hip mobility and ankle mobility to improve knee tracking and pain. check pt tolerance to tape and try taping B knees for dec pain; recheck new exercises
--- NOTE | 2024-09-26 09:32 | PT.OTN ---
Current Diagnoses Pain in right knee (09/26/24) Pain in left knee (09/26/24) Radiculopathy, lumbar region (09/26/24) Abnormal posture (09/26/24) Weakness (09/26/24) Physical Therapy Treatment Note PT-OP-A Visit Information Start: 08/16/24 10:12 Freq: Status: Active Protocol: Document 09/26/24 08:19 [facility] (Rec: 09/26/24 09:32 [facility] [id number]) Out-Patient Physical Therapy Visit Information Visit Information Visit Type Progress Note Visit Note 12/07 Visit Start Time 08:20 Visit Stop Time 09:00 Visit Number 7 Number of DIET KITCHEN COOK Visits 0 PT-OP-B Current Condition Start: 08/16/24 10:12 Freq: Status: Active Protocol: Document 08/23/24 08:45 [facility] (Rec: 08/23/24 09:45 [facility] [id number]) Current Condition History of Current Condition Onset Date worsening past few months Current Complaints B knee pain, LBP History of Current Condition Pt reports started having trouble w/knees about 3 or 4 months ago. She reports it may have been uneven ground carrying something but had so specific injury. Has done some xrays and OA was noted. Then her back gave out started about a month ago and had a lot of pain and was concerned about using pain meds d/t ulcers. Now she is using tylenol daily and does it once a day (650mg in AM) and gabapentin 1x/day and occasionally at night if having difficulty sleeping. By end of the day, seh starts to feels the back . Moving feels better. hx of neck pain pain and arm numbness that has been constant for many years and did do PT for it. Hx of ulcer surgery in 2021. when back pain first started, could only roll out of bed then scoot down the stairs. hx of bypass bariatric surgery (had a 2nd surgery d/t something wrong right after) about 18 years old and 2 c sections and during one of those take a tumor off the uterus. hx of R masectomy and chemo and has had B foot neuropathy since chemo. Has had chronic LBP in the past and has had to be careful. Pt reports she is busy all day long and has 2 flights of stairs and has to up/down often. Also tends chickens outside and does her own yard work and gardening. Does have to do lifting. At night, feels like she has to stretch out so will stretch in the evening. Treatment Goals Patient/Caregiver Goals strengthen knees to avoid TKA for a while longer, strengthen back,be able to reciprocate stairs, improve balance PT-OP-C Subjective Start: 08/16/24 10:12 Freq: Status: Active Protocol: Document 09/26/24 08:19 [facility] (Rec: 09/26/24 09:32 [facility] [id number]) OP-PT Subjective Patient Comments Patient Comments Reports back is better but knees still give a bit of trouble. PT-OP-D Balance Start: 08/16/24 10:12 Freq: Status: Active Protocol: Document 09/26/24 08:19 [facility] (Rec: 09/26/24 09:32 [facility] [id number]) Balance Tests Single Limb Standing Single Limb- Right 12 sec Single Limb- Left >30 sec PT-OP-G Mobility & Gait Start: 08/16/24 10:12 Freq: Status: Active Protocol: Document 08/23/24 08:45 [facility] (Rec: 08/23/24 09:45 [facility] [id number]) OP Gait Assessment Comments Gait Comments dec wt acceptance w/LLE w/SB into L trunk w/wt acceptance, dec push off, dec trunk and UE movement Stair Climbing Evaluation Comments Stair Climbing Comments step to down stairs LLE leading and recip up w/rail use both up/down PT-OP-J Posture/Palpation/Skin Start: 08/16/24 10:12 Freq: Status: Active Protocol: Document 09/26/24 08:19 [facility] (Rec: 09/26/24 09:32 [facility] [id number]) Posture Evaluation Wolfgang Postural Classification System Wolfgang Postural Classifications Posterior/Anterior Vertical Compression Test 2 Lumbar Protective Mechanism Left AP 0 Lumbar Protective Mechanism Right AP 1 Lumbar Protective Mechanism Left PA 3 Lumbar Protective Mechanism Right PA 1 PT-OP-K Range of Motion Start: 08/16/24 10:12 Freq: Status: Active Protocol: Document 08/23/24 08:45 [facility] (Rec: 08/23/24 09:45 [facility] [id number]) Lumbar Spine Range of Motion Lumbar Spine Active Percentage Flexion 40 Extension 75 Rotation Left 40 Rotation Right 40 Lateral Flexion Left 75 Lateral Flexion Right 75 Comments feels tight w/rot PT-OP-L Special Tests Start: 08/16/24 10:12 Freq: Status: Active Protocol: Document 08/23/24 08:45 [facility] (Rec: 08/23/24 09:45 [facility] [id number]) Special Tests Lumbar Spine Special Tests Straight Leg Raise Test Results neg about 90 deg B Anuel Test Results positive R RF and quad, L hip flexor Slump Test Results neg B PT-OP-M Strength Start: 08/16/24 10:12 Freq: Status: Active Protocol: Document 09/26/24 08:19 [facility] (Rec: 09/26/24 09:32 [facility] [id number]) Hip Strength Hip Manual Muscle Testing Right Flexion (L2) 4- Good- Extension (S1) 4- Good- Abduction 4 Good Adduction 4 Good External Rotation 3+ Fair+ Internal Rotation 4- Good- Left Flexion (L2) 3+ Fair+ Extension (S1) 4- Good- Abduction 4- Good- Adduction 4 Good External Rotation 4- Good- Internal Rotation 4+ Good+ Knee Strength Knee Manual Muscle Testing Right Flexion (S2) 4- Good- Extension (L3) 4+ Good+ Comments pain in knee w/flex Left Flexion (S2) 4 Good Extension (L3) 4+ Good+ Ankle/Foot Strength Ankle and Foot Manual Muscle Testing Right Dorsiflexion (L4) 5 Normal Plantarflexion (S1) 5 Normal Left Dorsiflexion (L4) 5 Normal Plantarflexion (S1) 5 Normal Comments Pf tested seated PT-OP-Q Treatments Start: 08/16/24 10:12 Freq: Status: Active Protocol: Document 09/26/24 08:19 [facility] (Rec: 09/26/24 09:32 [facility] [id number]) Therapeutic Exercises Supine Exercises bridge Supine Exercise Name SL partial Side bilateral Reps/Minutes 10 ea Comments cues control and core TA trg Supine Exercise Name B flex isometric for core facilitation Side bilateral Reps/Minutes 30 sec Sidelying Exercises clamshell Sidelying Exercise Name HEP Side bilateral Resistance L2 at distal thighs Reps/Minutes 15 (hold 3 SH) Comments encouraged to use band at home Standing Exercises stretch Standing Exercise Name calf stretch Side bilateral Resistance step Reps/Minutes 1 min squat Standing Exercise Name cues hips back Side bilateral Equipment Used w/band around knees L2, bar in front prn Reps/Minutes 15 Comments chair behind-partial range step ups Standing Exercise Name lat Side bilateral Equipment Used 4 in Reps/Minutes 10 ea Comments cues hip hinge and knee alignment Other Exercises isometrics Other Exercise Name B MMT, lPM and VCT Manual Therapy Treatment Consent Patient gave verbal consent for manual Yes treatment Soft Tissue Mobilization legs Body Location R calf, quad Mobilization Type Myofascial Release,Rolling, Sustained Pressure Comments w/flex and ext Joint Mobilizations B knee Comments 1. R Patellofemoral sup, inf, med 2. PA tibia w/APs 3. tibfib proximal PA fib w/ APs PT-OP-T Assessment and Plan Start: 08/16/24 10:12 Freq: Status: Active Protocol: Document 09/26/24 08:19 [facility] (Rec: 09/26/24 09:32 [facility] [id number]) Physical Therapy Assessment Goals posture Short Term Goal (STG) Pt will score at least 2/5 VCT to show improved postural stability to allow greater ease with upright activities STG Duration achieved 09/26 Penitentiary Goal (LTG) Pt will score at least 4/5 VCT to show improved postural stability to allow greater ease with upright activities LTG Duration 10/28 balance Penitentiary Goal (LTG) Pt will be able to do SLS 15 sec to show improved balacne 09/26-achieved L, 12 sec R LTG Duration 10/28 activity Short Term Goal (STG) Pt will be able to reciprocate up stairs w/o rail w/o pain or feel of LOB 09/26-some discomfort STG Duration 09/28 Mail Handler Goal (LTG) Pt will be able to reciprocate down stairs w/o rail w/o knee or back pain 09/26-feels wobbly and notes some knee pain B LTG Duration 10/28 strength Short Term Goal (STG) Pt will be indep w/HEP 09/26-has had visitors has has done less recently in past week but compliant prior STG Duration 09/28 Mail Handler Goal (LTG) Pt will score at least 4+/5 on all BLE MMT and at least 3/5 LPM to show improved stability to allow greater ease w/daily activties. 10-improved LTG Duration 11/01 Assessment Summary Assessment Pt had improved R knee flex after manual care. She was able to advance exercises today. Dec control on steps and required cues Physical Therapy Plan Frequency and Duration Frequency of Treatment 2x/Week Duration of treatment (weeks) 10 Plan of Care Start Date 08/23/24 Plan of Care End Date 11/01/24 Therapeutic Interventions Therapeutic Interventions Balance Training,Gait Training ,Home Exercise Program,Joint Mobilizations,Manual Therapy, Neuromuscular Re-education, Patient/Caregiver Education, Self-Care/Home Management,Soft Tissue Mobilization,Taping, Therapeutic Activities, Therapeutic Exercises Modalities Cold Pack/Ice Massage,Electric Stimulation,Hot Packs, Infrared Therapy,Traction- Mechanical,Ultrasound Next Visit Focus/Plan Next Note Type Treatment Note Next Visit Plan Work on knee and hip mobility and ankle mobility to improve knee tracking and pain. check pt tolerance to tape and try taping B knees for dec pain; consider leg press
--- NOTE | 2024-09-28 08:08 | PT-OP ANOTE ---
Pt was 21 minutes late for appt when arrived. Schedulers notified pt >15 min late for appt and would have to cancel appt.
--- NOTE | 2024-11-07 08:02 | PT.OPDS ---
Current Diagnoses Pain in right knee (09/26/24) Pain in left knee (09/26/24) Radiculopathy, lumbar region (09/26/24) Abnormal posture (09/26/24) Weakness (09/26/24) Visit Care Team Role Provider Type JUVENCIO Spears Family Provider Advanced Tetryl Wringer Operator Primary Care Provider Specialty: Family Practice Address: Email: [email or web address] Jaison Jeong PA-C Attending Provider Advanced Tetryl Wringer Operator Referring Provider Specialty: Orthopedics Orthopedic Surgery [facility]: [facility] [place], [address] Email: [email or web address] Visit Number Visit Number 7 Discharge Summary PT-OP-B Current Condition Start: 08/16/24 10:12 Freq: Status: Active Protocol: Document 08/23/24 08:45 [facility] (Rec: 08/23/24 09:45 [facility] [id number]) Current Condition History of Current Condition Onset Date worsening past few months Current Complaints B knee pain, LBP History of Current Condition Pt reports started having trouble w/knees about 3 or 4 months ago. She reports it may have been uneven ground carrying something but had so specific injury. Has done some xrays and OA was noted. Then her back gave out started about a month ago and had a lot of pain and was concerned about using pain meds d/t ulcers. Now she is using tylenol daily and does it once a day (650mg in AM) and gabapentin 1x/day and occasionally at night if having difficulty sleeping. By end of the day, seh starts to feels the back . Moving feels better. hx of neck pain pain and arm numbness that has been constant for many years and did do PT for it. Hx of ulcer surgery in 2021. when back pain first started, could only roll out of bed then scoot down the stairs. hx of bypass bariatric surgery (had a 2nd surgery d/t something wrong right after) about 18 years old and 2 c sections and during one of those take a tumor off the uterus. hx of R masectomy and chemo and has had B foot neuropathy since chemo. Has had chronic LBP in the past and has had to be careful. Pt reports she is busy all day long and has 2 flights of stairs and has to up/down often. Also tends chickens outside and does her own yard work and gardening. Does have to do lifting. At night, feels like she has to stretch out so will stretch in the evening. Treatment Goals Patient/Caregiver Goals strengthen knees to avoid TKA for a while longer, strengthen back,be able to reciprocate stairs, improve balance PT-OP-C Subjective Start: 08/16/24 10:12 Freq: Status: Active Protocol: Document 09/26/24 08:19 [facility] (Rec: 09/26/24 09:32 [facility] [id number]) OP-PT Subjective Patient Comments Patient Comments Reports back is better but knees still give a bit of trouble. PT-OP-D Balance Start: 08/16/24 10:12 Freq: Status: Active Protocol: Document 09/26/24 08:19 [facility] (Rec: 09/26/24 09:32 [facility] [id number]) Balance Tests Single Limb Standing Single Limb- Right 12 sec Single Limb- Left >30 sec PT-OP-G Mobility & Gait Start: 08/16/24 10:12 Freq: Status: Active Protocol: Document 08/23/24 08:45 [facility] (Rec: 08/23/24 09:45 [facility] [id number]) OP Gait Assessment Comments Gait Comments dec wt acceptance w/LLE w/SB into L trunk w/wt acceptance, dec push off, dec trunk and UE movement Stair Climbing Evaluation Comments Stair Climbing Comments step to down stairs LLE leading and recip up w/rail use both up/down PT-OP-J Posture/Palpation/Skin Start: 08/16/24 10:12 Freq: Status: Active Protocol: Document 09/26/24 08:19 [facility] (Rec: 09/26/24 09:32 [facility] [id number]) Posture Evaluation Wolfgang Postural Classification System Wolfgang Postural Classifications Posterior/Anterior Vertical Compression Test 2 Lumbar Protective Mechanism Left AP 0 Lumbar Protective Mechanism Right AP 1 Lumbar Protective Mechanism Left PA 3 Lumbar Protective Mechanism Right PA 1 PT-OP-K Range of Motion Start: 08/16/24 10:12 Freq: Status: Active Protocol: Document 08/23/24 08:45 [facility] (Rec: 08/23/24 09:45 [facility] [id number]) Lumbar Spine Range of Motion Lumbar Spine Active Percentage Flexion 40 Extension 75 Rotation Left 40 Rotation Right 40 Lateral Flexion Left 75 Lateral Flexion Right 75 Comments feels tight w/rot PT-OP-L Special Tests Start: 08/16/24 10:12 Freq: Status: Active Protocol: Document 08/23/24 08:45 [facility] (Rec: 08/23/24 09:45 [facility] [id number]) Special Tests Lumbar Spine Special Tests Straight Leg Raise Test Results neg about 90 deg B Anuel Test Results positive R RF and quad, L hip flexor Slump Test Results neg B PT-OP-M Strength Start: 08/16/24 10:12 Freq: Status: Active Protocol: Document 09/26/24 08:19 [facility] (Rec: 09/26/24 09:32 [facility] [id number]) Hip Strength Hip Manual Muscle Testing Right Flexion (L2) 4- Good- Extension (S1) 4- Good- Abduction 4 Good Adduction 4 Good External Rotation 3+ Fair+ Internal Rotation 4- Good- Left Flexion (L2) 3+ Fair+ Extension (S1) 4- Good- Abduction 4- Good- Adduction 4 Good External Rotation 4- Good- Internal Rotation 4+ Good+ Knee Strength Knee Manual Muscle Testing Right Flexion (S2) 4- Good- Extension (L3) 4+ Good+ Comments pain in knee w/flex Left Flexion (S2) 4 Good Extension (L3) 4+ Good+ Ankle/Foot Strength Ankle and Foot Manual Muscle Testing Right Dorsiflexion (L4) 5 Normal Plantarflexion (S1) 5 Normal Left Dorsiflexion (L4) 5 Normal Plantarflexion (S1) 5 Normal Comments Pf tested seated PT-OP-T Assessment and Plan Start: 08/16/24 10:12 Freq: Status: Active Protocol: Document 11/07/24 08:01 [facility] (Rec: 11/07/24 08:02 [facility] [id number]) Physical Therapy Assessment Goals posture Short Term Goal (STG) Pt will score at least 2/5 VCT to show improved postural stability to allow greater ease with upright activities STG Duration achieved 09/26 Vice President Of Manufacturing Goal (LTG) Pt will score at least 4/5 VCT to show improved postural stability to allow greater ease with upright activities LTG Duration 10/28 balance Snf Goal (LTG) Pt will be able to do SLS 15 sec to show improved balacne 09/26-achieved L, 12 sec R LTG Duration 10/28 activity Short Term Goal (STG) Pt will be able to reciprocate up stairs w/o rail w/o pain or feel of LOB 09/26-some discomfort STG Duration 09/28 Snf Goal (LTG) Pt will be able to reciprocate down stairs w/o rail w/o knee or back pain 09/26-feels wobbly and notes some knee pain B LTG Duration 10/28 strength Short Term Goal (STG) Pt will be indep w/HEP 09/26-has had visitors has has done less recently in past week but compliant prior STG Duration 09/28 Snf Goal (LTG) Pt will score at least 4+/5 on all BLE MMT and at least 3/5 LPM to show improved stability to allow greater ease w/daily activties. 08/30-improved LTG Duration 11/01 Assessment Summary Assessment Pt cancelled all appts and called front saying she felt like she no longer needed PT. She has not been seen since Sep 26. DC d/t no longer attending. She was improving w /PT until she cancelled all visits. Physical Therapy Plan Discharge Physical Therapy Discharge Reasons Patient Request
== END 2024-11-14 15:20 | disposition home or self-care (01) ==
LOC: PHYS 08:15
PROVIDERS: Family Provider Nurse Practitioner; PCP Nurse Practitioner; Referring Provider Physician Assistant; Visit Provider Physician Assistant
DX: M54.16 Radiculopathy, lumbar region (principal); R53.1 Weakness; R29.3 Abnormal posture; M25.561 Pain in right knee; M25.562 Pain in left knee
CPT/HCPCS: 97110; 97140; 97162; 97535